=== PATIENT | male | born 1940 | race Caucasian/White ===

== ENCOUNTER 2016-04-10 10:54 | Inpatient (IN) | payer MEDICARE ==
[2016-04-10] VITALS (14 sets, daily range): BP systolic 82–105; BP diastolic 50–64
[~2016-04-10] VITALS: Ht 177.8 cm; Wt 88.2 kg
[~2016-04-10 10:54] MED LIST: ASPI81TA7 PO; ATOR40TA PO; DIGO0.25 PO; NITR0.3S4 SL; PLAV75TA38 PO
[2016-04-10] MEDS ORDERED: ERTAPENEM SODIUM 1 GM in NS MINI-BAG PLUS 50 ML IV ONE (11:15)
[2016-04-10] MEDS ORDERED: ALVIMOPAN 12 MG CAPSULE (ENTEREG) PO ONE (11:15)
[2016-04-10] MEDS ORDERED: LR 1,000 ML IV SCH ×4 (11:15→20:00)
[2016-04-10] MEDS ORDERED: ROCURONIUM BROMIDE 50 MG/5 ML VIAL As Ordered ONE ×2 (12:19→14:36)
[2016-04-10] MEDS ORDERED: LIDOCAINE 2% INJ 100 MG/5 ML SDV (FOR ANES.) As Ordered ONE (12:19)
[2016-04-10] MEDS ORDERED: PROPOFOL 200 MG/20 ML VIAL As Ordered ONE (12:19)
[2016-04-10] MEDS ORDERED: MIDAZOLAM INJ 2 MG/2 ML VIAL (J2250) As Ordered ONE (12:20)
[2016-04-10] MEDS ORDERED: fentaNYL 100 MCG/2 ML INJECTION (J3010) As Ordered ONE (12:20)
[2016-04-10] MEDS ORDERED: ASPIRIN 81 MG CHEW TABLET As Ordered ONE (12:49)
[2016-04-10] MEDS ORDERED: ASPIRIN 81 MG CHEW TABLET PO ONE (13:00)
[2016-04-10] MEDS ORDERED: BUPIVACAINE HCL 0.25% 30 ML VIAL As Ordered ONE (13:12)
[2016-04-10 13:46] LABS: MEAN CORPUSCULAR HEMOGLOBIN 31.4 pg (27.0-33.0); MEAN CORPUSCULAR HGB CONC 34.7 g/dl (32.0-36.5); MEAN CORPUSCULAR VOLUME 90.4 fl (80.0-96.0); RED CELL DISTRIBUTION WIDTH 13.1 % (11.5-14.5); WHITE BLOOD COUNT 4.9 K/mm3 (4.0-10.0)
[2016-04-10] MEDS ORDERED: HYDROmorphone HCL 2 MG/ML 1ML VIAL (J1170) As Ordered ONE (14:37)
[2016-04-10] MEDS ORDERED: NEOSTIGMINE 1MG/ML 5 ML SYRINGE (J2710) As Ordered ONE (15:42)
[2016-04-10] MEDS ORDERED: GLYCOPYRROLATE INJ 0.2 MG/ML 2 ML VIAL As Ordered ONE (15:42)
[2016-04-10] MEDS ORDERED: ONDANSETRON 4MG/2ML VIAL (J2405) As Ordered ONE (15:42)
[2016-04-10] MEDS ORDERED: BUPIVACAINE HCL 0.25% 30 ML VIAL XX ONE ×3 (15:43→15:47)
[2016-04-10] MEDS ORDERED: NORCO, ANEXSIA 5/325MG TABLET (HYDROcodone/ACETAMINOPHEN) PO PRN (17:30)
[2016-04-10] MEDS ORDERED: ACETAMINOPHEN TAB 650MG DOSE (2X325MG) PO PRN (17:30)
[2016-04-10] MEDS ORDERED: LR 500 ML IV SCH (17:30)
[2016-04-10] MEDS ORDERED: ONDANSETRON 4MG/2ML VIAL (J2405) IV PRN ×2 (17:30→18:00)
[2016-04-10] MEDS ORDERED: NITROGLYCERIN 0.4 MG SUBL TABLET SL PRN (17:30)
[2016-04-10] MEDS ORDERED: MORPHINE 2 MG/ML 1ML SYRINGE IV PRN ×2 (17:30→18:00)
[2016-04-10] MEDS ORDERED: fentaNYL 100 MCG/2 ML INJECTION (J3010) IV PRN (18:00)
[2016-04-10] MEDS ORDERED: ePHEDrine SULFATE 25 MG/5 ML(5MG/ML) SYRINGE As Ordered ONE (18:32)
[2016-04-10] MEDS ORDERED: PHENYLephrine HCL 500 MCG/5 ML (100MCG/ML) SYRINGE (J2370) As Ordered ONE (18:32)
[2016-04-10] MEDS: KETOROLAC 30 MG/ML VIAL (J1885) IV PRN (19:07)
[2016-04-10] MEDS: ALVIMOPAN 12 MG CAPSULE (ENTEREG) PO SCH (21:36)
[2016-04-10] MEDS: ATORVASTATIN 20 MG TAB PO SCH (21:36)
[2016-04-10] MEDS: LR 1,000 ML IV SCH (22:20)
[2016-04-10] MEDS: ENOXAPARIN 40 MG/0.4 ML SYRINGE (J1650) SC SCH (23:29)
[2016-04-11] VITALS (11 sets, daily range): BP systolic 90–118; BP diastolic 53–72
[2016-04-11] MEDS: KETOROLAC 30 MG/ML VIAL (J1885) IV PRN ×2 (04:04→15:17)
[2016-04-11 04:54] LABS: EOS % 0.1 % (0.0-3.0); LARGE UNSTAINED CELL # 0.1 K/mm3 (0.0-0.4); LARGE UNSTAINED CELL % 0.5 % (0.0-4.0); LYMPH # 0.6 K/mm3 (1.5-4.5); LYMPH % 4.8 % (24.0-44.0); MEAN CORPUSCULAR HEMOGLOBIN 30.8 pg (27.0-33.0); MEAN CORPUSCULAR HGB CONC 33.2 g/dl (32.0-36.5); MEAN CORPUSCULAR VOLUME 92.7 fl (80.0-96.0); MONO # 0.6 K/mm3 (0.0-0.8); MONO % 4.3 % (0.0-5.0); NEUTROPHILS # 11.9 K/mm3 (1.8-7.7); NEUTROPHILS % 90.3 % (36.0-66.0); PLATELET COUNT, AUTOMATED 186 k/mm3 (150-450); RED CELL DISTRIBUTION WIDTH 13.4 % (11.5-14.5); WHITE BLOOD COUNT 13.2 K/mm3 (4.0-10.0)
[2016-04-11 05:03] LABS: CALCIUM LEVEL 7.6 MG/DL (8.8-10.2); CREATININE FOR GFR 1.48 MG/DL (0.70-1.30); GLOMERULAR FILTRATION RATE 49.5 (>42); POTASSIUM SERUM 4.1 MEQ/L (3.5-5.1)
[2016-04-11] MEDS: LR 1,000 ML IV SCH ×3 (06:10→20:41)
[2016-04-11] MEDS: DIGOXIN 0.25 MG TAB PO SCH (08:41)
[2016-04-11] MEDS: ALVIMOPAN 12 MG CAPSULE (ENTEREG) PO SCH ×2 (08:41→20:43)
[2016-04-11] MEDS ORDERED: traMADol 50 MG TAB PO PRN (11:00)
[2016-04-11] MEDS ORDERED: IPRATROPIUM 0.5MG/ALBUTEROL 2.5MG INH SOL UD 3ML (DUONEB)(J7620) NEB PRN (11:00)
[2016-04-11] MEDS: IPRATROPIUM 0.5MG/ALBUTEROL 2.5MG INH SOL UD 3ML (DUONEB)(J7620) NEB SCH ×2 (14:00→19:58)
[2016-04-11] MEDS: ATORVASTATIN 20 MG TAB PO SCH (20:43)
[2016-04-11] MEDS: ENOXAPARIN 40 MG/0.4 ML SYRINGE (J1650) SC SCH (22:41)
[2016-04-12] VITALS (12 sets, daily range): BP systolic 110–133; BP diastolic 56–76
[2016-04-12] MEDS: IPRATROPIUM 0.5MG/ALBUTEROL 2.5MG INH SOL UD 3ML (DUONEB)(J7620) NEB SCH ×4 (02:00→20:41)
[2016-04-12] MEDS: LR 1,000 ML IV SCH (08:52)
[2016-04-12] MEDS: DIGOXIN 0.25 MG TAB PO SCH (08:59)
[2016-04-12] MEDS: ALVIMOPAN 12 MG CAPSULE (ENTEREG) PO SCH ×2 (08:59→22:00)
[2016-04-12 09:51] LABS: MEAN CORPUSCULAR HEMOGLOBIN 30.9 pg (27.0-33.0); MEAN CORPUSCULAR HGB CONC 34.2 g/dl (32.0-36.5); MEAN CORPUSCULAR VOLUME 90.3 fl (80.0-96.0); RED CELL DISTRIBUTION WIDTH 13.3 % (11.5-14.5); WHITE BLOOD COUNT 10.1 K/mm3 (4.0-10.0)
[2016-04-12 09:57] LABS: CALCIUM LEVEL 7.8 MG/DL (8.8-10.2); CREATININE FOR GFR 1.39 MG/DL (0.70-1.30); GLOMERULAR FILTRATION RATE 53.2 (>42); POTASSIUM SERUM 3.8 MEQ/L (3.5-5.1)
[2016-04-12] MEDS ORDERED: FUROSEMIDE 20 MG/2 ML VIAL (J1940) IV ONE ×2 (11:00→11:45)
--- NOTE | 2016-04-12 11:41 | CR.PDOC ---
[facility] Consultation Consultation DATE OF CONSULTATION: 04/12/16 PRIMARY CARE PHYSICIAN: Dr Doug Rojas REFERRING PROVIDER: Dr Quiles ATTENDING PHYSICIAN: Dr. Dr Quiles REASON FOR CONSULTATION/CHIEF COMPLAINT: AMS. HISTORY OF PRESENT ILLNESS: S/P right lap hemicolectomy. ALLERGIES: Please see below. HOME MEDICATIONS: Please see below. PAST MEDICAL HISTORY: 1. CAD. 2. HTN. 3. AFib. 4. Hyperlipidemia. PAST SURGICAL HISTORY: 1. 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 Denies fevers , chills, weakness. HEENT: Denies headaches, sore throat, sinus or ear pain. CARDIOVASCULAR: Denies CP, palpitations. RESPIRATORY: Denies SOB, Wheezing. GENITOURINARY: Denies dysuria. MUSCULOSKELETAL: Denies myalgias. GASTROINTESTINAL: Denies any current abd pain. Denies N/V/D. SKIN: Denies rash. NEUROLOGICAL: Some confusion. Denies Headaches, LOC, paresthesias. PSYCHIATRIC: Some confusion. ENDOCRINE: Denies hot or cold intolerance. HEMATOLOGIC/LYMPHATIC: Denies any bleeding. ALLERGIC/IMMUNOLOGIC: . PHYSICAL EXAMINATION: VITAL SIGNS: Please see below. GENERAL APPEARANCE: Sitting up in chair. Pleasant. NAD. HEENT: NC/AT. RESPIRATORY: CTAB. CARDIOVASCULAR: RRR. ABDOMEN: +BS, Soft. NT. Dressing to mid-abd. EXTREMITIES: No edema. NEUROLOGICAL: Nonfocal grossly. PSYCHIATRIC: A/O. Knows he is in [facility]. Knows his doctors' names. Knows the year. Didn't recall his recent surgery. LABORATORY DATA: Please see below. ASSESSMENT/PLAN: 1. AMS - Medicine was asked to see this pt by surgery for AMS. Pt is being followed by General Surgery, and Dr Quiles's note states that the pt may be a little better today in regards to his mental status. Pt knows he is in the hospital but couldn't recall that he recently had surgery. Possibly metabolic encephalopathic. Hgb 6.9. Will transfuse 2 units PRBCs. He is being diuresed. . 2. S/P Right colectomy - General Surgery following 3. Anemia - Hgb 6.9. Transfuse 2 units PRBCs. . 4. CAD - Asymptomatic. Follows with cardiology as outpt. 5. H/O PAF - On Dig. Follows with cardiology as outpt. 6. Hyperlipidemia - On lipitor. Attending note: I saw and evaluated the patient, and agree with the plan of care as discussed and documented above. However, AMS, likely triggered by severe postoperative anemia. Patient is improved after 2 units of PRBC. Carlos Castaneda MD Vital Signs/I&O Vital Signs Date Time Temp Pulse Resp B/P Pulse Ox O2 Delivery O2 Flow Rate FiO2 04/12/16 10:00 99.0 104 18 111/56 91 Room Air 04/11/16 05:30 3.0 I&O- Last 24 Hours up to 6 AM 04/12/16 06:00 Intake Total 2360 ml Output Total 790 ml Balance 1570 ml Laboratory Data Labs 24H Laboratory Tests 2 04/12/16 09:34: Anion Gap 7L, Blood Urea Nitrogen 30H, Creatinine 1.39H, Sodium Level 139, Potassium Level 3.8, Chloride Level 102, Carbon Dioxide Level 30, Calcium Level 7.8L, Glomerular Filtration Rate 53.2 CBC/BMP Laboratory Tests 04/12/16 09:34 Calcium Level 7.8 L, Red Blood Count 2.23 L, Mean Corpuscular Volume 90.3, Mean Corpuscular Hemoglobin 30.9, Mean Corpuscular Hemoglobin Concent 34.2, Red Cell Distribution Width 13.3 Microbiology Microbiology 04/10/16 MRSA Screen - Final, Complete Allergies Coded Allergies: Penicillins (Verified Allergy, Unknown, 07/11/12) Penicillins Cross Reactors (Verified Allergy, Unknown, 07/11/12) Home Medications Scheduled Aspirin (Aspirin) 81 Mg Tab 81 MG PO DAILY (Reported) Atorvastatin Calcium (Atorvastatin Calcium) 40 Mg Tab 40 MG PO QHS (Reported) Digoxin (Digoxin) 0.25 Mg Tab 0.25 MG PO DAILY (Reported) Scheduled PRN Nitroglycerin (Nitroglycerin) 0.3 Mg Sub 0.3 MG SL Q5MP PRN PRN ANGINA (Reported ) Rosalino Pichardo Apr 12, 2016 11:41 CARLOS CASTANEDA MD Apr 28, 2016 13:29 Rosalino Pichardo Apr 12, 2016 11:41
[2016-04-12] MEDS ORDERED: POTASSIUM CHLORIDE 10 MEQ SR TABLET PO ONE (12:00)
[2016-04-12 18:19] LABS: MEAN CORPUSCULAR HEMOGLOBIN 30.5 pg (27.0-33.0); MEAN CORPUSCULAR HGB CONC 34.4 g/dl (32.0-36.5); MEAN CORPUSCULAR VOLUME 88.7 fl (80.0-96.0); RED CELL DISTRIBUTION WIDTH 14.3 % (11.5-14.5); WHITE BLOOD COUNT 9.9 K/mm3 (4.0-10.0)
[2016-04-12] MEDS: ATORVASTATIN 20 MG TAB PO SCH (22:00)
[2016-04-12] MEDS: KETOROLAC 30 MG/ML VIAL (J1885) IV PRN (22:00)
[2016-04-12] MEDS: ENOXAPARIN 40 MG/0.4 ML SYRINGE (J1650) SC SCH (22:01)
[2016-04-13] MEDS ORDERED: LORazepam 2 MG/ML VIAL (J2060) IV PRN (01:00)
[2016-04-13] MEDS: IPRATROPIUM 0.5MG/ALBUTEROL 2.5MG INH SOL UD 3ML (DUONEB)(J7620) NEB SCH (01:41)
[2016-04-13 02:00] VITALS: BP 144/74
[2016-04-13] MEDS ORDERED: OLANZapine 5 MG TAB PO ONE (04:00)
[2016-04-13 06:00] VITALS: BP 143/84
[2016-04-13] MEDS ORDERED: LORazepam 2 MG/ML VIAL (J2060) IV STA (07:09)
[2016-04-13] MEDS ORDERED: PHENYLephrine HCL 500 MCG/5 ML (100MCG/ML) SYRINGE (J2370) ONE (07:28)
[2016-04-13] MEDS ORDERED: PHENYLEPHRINE INJ 10MG/ML VIAL (J2370) ONE (07:28)
--- NOTE | 2016-04-13 07:54 | RO ---
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 PROCEDURE PERFORMED: Laparoscopic right hemicolectomy with ileocolic anastomosis. SURGEON: Kenny Anderson MD SOIL CONSERVATION TECHNICIAN: Kp Johnson MD ANESTHESIA: General. INDICATIONS FOR THE PROCEDURE: Patient is a 75-year-old man who was found on recent colonoscopy to have a large villous lesion involving the entire ileocecal valve region and some of the surrounding cecal wall. Biopsy confirmed villous adenoma and he is now for a right hemicolectomy. OPERATIVE PROCEDURE: The patient was placed under general endotracheal anesthesia. A Mary catheter was inserted. Thromboembolism deterrents (TEDs) and sequentials were applied. He was placed supine on the operating table. The abdomen was prepped and draped in a sterile fashion. 0.25% Marcaine was infiltrated at each of the trocar sites prior to insertion. A short infraumbilical midline incision was made and deepened into the peritoneum. A Marissa cannula was placed and the abdomen was inflated. The ascending colon appeared to be moderately dilated with air as did the transverse colon. The cecum and ascending colon appeared to be displaced up into the right upper quadrant. The liver appeared normal. There were some adhesions of fatty tissue to the gallbladder. A 5 mm trocar was placed low in the midline. A second 5 mm trocar was placed in the left lower quadrant slightly below the level of the umbilicus. A third 5 mm trocar was placed in the left upper quadrant. The cecum was grasped and pulled inferiorly. The terminal ileum appeared to be fairly immobile with significant lateral attachments. I began by dividing some of the lateral attachments of the terminal ileum. Dissection then carried up along the lateral aspect of the cecum and the proximal ascending to free this portion of the colon. Then, with the colon elevated, the peritoneum was opened medial to the cecum and the ileocolic vessel was divided using the Harmonic scalpel. Much of the dissection took place using the Harmonic scalpel and the medial aspect of the mesentery of the ascending colon was divided moving cephalad. The adhesions of the omentum to the gallbladder were divided with the Harmonic scalpel. Then, attachments of the hepatic flexure in the right upper quadrant were divided. Dissection proceeded freeing the proximal transverse colon moving from right to left. The dissection was completed freeing the lateral aspect of the ascending colon and the division of the right colon mesentery was then carried across the transverse colon mesentery sparing the middle colic vessels. The mesentery was then opened at a point selected for the colonic transection and a Emporium stapler was placed across the proximal transverse colon and fired. A second load was needed to complete the division. Some final dissection of the terminal ileum was required to allow this to be mobilized adequately to bring this to the midline for an anastomosis. Once everything appeared to be well freed, the area was inspected for hemostasis , which appeared excellent. The two ends of the colon were both grasped with clamps. The abdomen was then deflated. The infraumbilical incision was extended to approximately 5 cm. A small wound protector was placed. The proximal end of the transverse colon was delivered through the wound and this allowed delivery of the right hemicolectomy specimen, which was still attached to the terminal ileum. The terminal ileum was divided with the Emporium stapler. The distal portion of the transverse colon was then also delivered into the wound. Both ends of the bowel appeared to be well vascularized. The bowel was tacked together with two simple sutures of #3-0 Vicryl and a stapled anastomosis was then performed with two firings of the Emporium 60 mm stapler. The anastomosis was inspected for hemostasis and several small bleeding points along one of the staple lines were controlled with the cautery. Final inspection revealed an excellent healthy appearing anastomosis. This was gently irrigated and then reduced into the abdomen. The wound protector was removed. The surgical team then changed gown and gloves. The closing tray was brought to the field. The abdominal wall was cleaned with saline soaked pad and some additional towels were placed to drape the area. The midline incision was closed with interrupted simple sutures of #1 Vicryl. The abdomen was then reinflated through the remaining three trocars. A 5 mm scope was placed. The area of the anastomosis was identified. This appeared intact. A small amount of bloody fluid in the area of the operation was suctioned and there did not appear to be any ongoing bleeding. The patient was returned to a flat position. The abdomen was deflated and the trocars were all removed. The skin incisions were then all closed with buried #5-0 Vicryl and Steri-Strips. Light dressings were applied. The patient tolerated the procedure well without apparent complication. He was awakened in the operating room, extubated and moved to the recovery room in stable condition. The specimen was opened off the field and inspection revealed an approximately 5 cm area of a villous lesion involving the area of the ileocecal valve. There were no hard areas to suggest definite cancer. The specimen was sent for permanent pathology. VANESSA
[2016-04-13] MEDS ORDERED: NORCO, ANEXSIA 5/325MG TABLET (HYDROcodone/ACETAMINOPHEN) PO PRN (08:00)
--- NOTE | 2016-04-13 08:58 | IPNPDOC ---
Assessment/Plan Date Seen The patient was seen on 04/13/16. Family Medicine Attending note: patient seen and examined; I d/w MALLY Salinas and I agree with her note below. Patient is currently sleeping and is difficult to arouse, likely due to medication. Overnight, patient was agitated and repeatedly attempted to get out of bed. Therefore, we are currently unable to assess his mental status. He received 2U PRBCs yesterday. Will monitor mental status. (KES). Problems Problems: (1) S/P right hemicolectomy Status: Acute Response to Treatment: Stable Discussed With: Order Editor Problem Specific Plan: Monitor Clinically Problem Text: Dr Anderson following (2) Altered mental status Status: Acute Response to Treatment: Uncontrolled Discussed With: Nurse, Order Editor Problem Specific Plan: Monitor Clinically, Repeat Labs Problem Text: Pt now asleep after receiving second dose of Ativan 0.5 mg IV 6 hours after the first. He also received a dose of Zyprexa at 4 AM. a sitter has been ordered. Mtp potential causes including significant anemia (now corrected, Hgb 8.7, was 6.9), surgery, post anesthesia, environment. Monitor closely (3) Acute blood loss anemia Status: Acute Response to Treatment: Stable Problem Specific Plan: Monitor Clinically, Repeat Labs Problem Text: Received 2 u pRBCs yesterday as ordered by medical team after consult from . Could have triggered AMS. Monitor levels. (4) CAD (coronary artery disease) Status: Chronic Response to Treatment: Stable Problem Specific Plan: Monitor Clinically (5) Paroxysmal atrial fibrillation Status: Chronic Response to Treatment: Stable Problem Text: Cont with HD dig. (6) Villous adenoma of right colon Status: Acute Response to Treatment: Controlled Problem Specific Plan: Monitor Clinically Problem Text: resulted in R hemicolectomy, mgmt per . Plan / VTE VTE Prophylaxis Ordered?: Yes Plan / Urinary Catheter Reason for insertion/continuin: Perioperative Subjective Review of Systems CC/HPI Received call from nursing this morning about 705 reporting pt to be combative, restless, had been on the floor, writhing, unable to keep in bed, unable to keep in chair or wheelchair. Pt confused. Pt had been given Ativan 0.5 mg at 1 am, Zyprexa 5 mg at 4 AM, both with little improvement in his behavior General: Reports: ROS Unobtainable (pt sleeping soundly this morning) Constitutional: Reports: Chills Objective Physical Examination General Exam: Positive: Alert, No Acute Distress ENT Exam: Positive: Mucous membr. moist/pink Chest Exam: Positive: Clear to auscultation, Normal air movement Heart Exam: Positive: Normal S1, Normal S2, Rate Normal Abdomen Exam: Positive: BS Hypoactive, Soft Extremity Exam: Negative: Edema Vital Signs/I&O Vital Signs Date Time Temp Pulse Resp B/P Pulse Ox O2 Delivery O2 Flow Rate FiO2 04/13/16 06:00 97.5 96 17 143/84 94 Room Air 04/11/16 05:30 3.0 I&O- Last 24 Hours up to 6 AM 04/13/16 06:00 Intake Total 1884 ml Output Total 5000 ml Balance -3116 ml Laboratory Data Labs 24H Laboratory Tests 2 04/12/16 09:34: Anion Gap 7L, Blood Urea Nitrogen 30H, Creatinine 1.39H, Sodium Level 139, Potassium Level 3.8, Chloride Level 102, Carbon Dioxide Level 30, Calcium Level 7.8L, Glomerular Filtration Rate 53.2 CBC/BMP Laboratory Tests 04/12/16 09:34 Calcium Level 7.8 L, Red Blood Count 2.23 L, Mean Corpuscular Volume 90.3, Mean Corpuscular Hemoglobin 30.9, Mean Corpuscular Hemoglobin Concent 34.2, Red Cell Distribution Width 13.3 04/12/16 17:59 Red Blood Count 2.84 L, Mean Corpuscular Volume 88.7, Mean Corpuscular Hemoglobin 30.5, Mean Corpuscular Hemoglobin Concent 34.4, Red Cell Distribution Width 14.3 Microbiology Microbiology 04/10/16 MRSA Screen - Final, Complete GRETTA EDMONDSON PA-C Apr 13, 2016 08:58 BARBARA WONG MD Apr 13, 2016 09:38
[2016-04-13 11:14] VITALS: BP 138/64
[2016-04-13] MEDS: ALVIMOPAN 12 MG CAPSULE (ENTEREG) PO SCH (11:27)
[2016-04-13] MEDS: DIGOXIN 0.25 MG TAB PO SCH (11:28)
[2016-04-13 11:48] LABS: BASO % 0.2 % (0.0-1.0); EOS # 0.1 K/mm3 (0.0-0.50); EOS % 1.3 % (0.0-3.0); LARGE UNSTAINED CELL # 0.1 K/mm3 (0.0-0.4); LARGE UNSTAINED CELL % 1.6 % (0.0-4.0); LYMPH % 16.5 % (24.0-44.0); MEAN CORPUSCULAR HEMOGLOBIN 30.8 pg (27.0-33.0); MEAN CORPUSCULAR HGB CONC 34.2 g/dl (32.0-36.5); MEAN CORPUSCULAR VOLUME 90.1 fl (80.0-96.0); MONO # 0.5 K/mm3 (0.0-0.8); MONO % 8.2 % (0.0-5.0); NEUTROPHILS # 4.2 K/mm3 (1.8-7.7); NEUTROPHILS % 72.2 % (36.0-66.0); PLATELET COUNT, AUTOMATED 129 k/mm3 (150-450); RED CELL DISTRIBUTION WIDTH 14.3 % (11.5-14.5); WHITE BLOOD COUNT 5.8 K/mm3 (4.0-10.0)
[2016-04-13 12:48] LABS: ALBUMIN 3.2 GM/DL (3.2-5.2); ALBUMIN/GLOBULIN RATIO 1.45 (1.00-1.93); ALKALINE PHOSPHATASE 63 U/L (45-117); ALT/SGPT 19 U/L (12-78); ANION GAP 8 MEQ/L (8-16); AST/SGOT 36 U/L (15-37); BILIRUBIN,TOTAL 1.7 MG/DL (0.2-1.0); BLOOD UREA NITROGEN 18 MG/DL (7-18); CARBON DIOXIDE LEVEL 32 MEQ/L (21-32); CHLORIDE LEVEL 105 MEQ/L (98-107); GLOMERULAR FILTRATION RATE > 60.0 (>42); GLUCOSE, FASTING 91 MG/DL (83-110); POTASSIUM SERUM 3.7 MEQ/L (3.5-5.1); SODIUM LEVEL 145 MEQ/L (136-145); TOTAL PROTEIN 5.4 GM/DL (6.4-8.2)
[2016-04-13 14:00] VITALS: BP 148/77
--- NOTE | 2016-04-13 15:29 | IPNPDOC ---
Text Note Date of Service The patient was seen on 04/13/16 at 14:25. NOTE Patient seen and examined again this afternoon - he was awake, alert, and sitting calmly in a chair at bedside. He had no complaints and denies any chest pain or abdominal pain. He is oriented to year, month, name, birthday. He is somewhat oriented to situation - he is able to state that he had surgery on his stomach on 04/10/[address] Anderson but is unable to state current location. He admits to feeling confused and states he thinks he was confused and "upset" overnight. Hgb increased appropriately yesterday after he received 2 U pRBCs but is back to <8 today. It is unclear what is causing this drop - he had a normal BM yesterday without blood, and he ate 75% of his lunch today without difficulty. He denies nausea. I think that his confusion is likely related to his dementia with recent hospitalizations and surgery causing increased confusion from baseline. He is likely owning at night. I d/w family today the importance of redirecting him and allowing time for him to recover. Urine culture is pending. Will give an additional 1 U pRBCs and recheck CBC in the morning. (KES) VS,Tami, I+O VS, [place], I+O Laboratory Tests 04/12/16 17:59 Red Blood Count 2.84 L, Mean Corpuscular Volume 88.7, Mean Corpuscular Hemoglobin 30.5, Mean Corpuscular Hemoglobin Concent 34.4, Red Cell Distribution Width 14.3 04/13/16 11:38 Red Blood Count 2.53 L, Mean Corpuscular Volume 90.1, Mean Corpuscular Hemoglobin 30.8, Mean Corpuscular Hemoglobin Concent 34.2, Red Cell Distribution Width 14.3, Calcium Level 8.0 L, Aspartate Amino Transf (AST/SGOT) 36, Alanine Aminotransferase (ALT/SGPT) 19, Alkaline Phosphatase 63, Total Bilirubin 1.7 H, Total Protein 5.4 L, Albumin 3.2, Neutrophils (%) (Auto) 72.2 H , Lymphocytes (%) (Auto) 16.5 L, Monocytes (%) (Auto) 8.2 H, Eosinophils (%) ( Auto) 1.3, Basophils (%) (Auto) 0.2, Neutrophils # (Auto) 4.2, Lymphocytes # ( Auto) 1.0 L, Monocytes # (Auto) 0.5, Eosinophils # (Auto) 0.1, Basophils # (Auto ) 0.0 Vital Signs Date Time Temp Pulse Resp B/P Pulse Ox O2 Delivery O2 Flow Rate FiO2 04/13/16 14:00 97.3 82 18 148/77 98 Room Air 04/11/16 05:30 3.0 I&O- Last 24 Hours up to 6 AM 04/13/16 06:00 Intake Total 1884 ml Output Total 5000 ml Balance -3116 ml BARBARA WONG MD Apr 13, 2016 15:29
[2016-04-13 18:00] VITALS: BP 121/65
[2016-04-13] MEDS: ATORVASTATIN 20 MG TAB PO SCH (19:48)
[2016-04-13 22:00] VITALS: BP 170/82
[2016-04-14] MEDS ORDERED: LORazepam 0.5 MG TAB PO PRN (00:15)
[2016-04-14 02:00] VITALS: BP 105/58
[2016-04-14 06:00] VITALS: BP 150/88
[2016-04-14 07:12] LABS: BASO % 0.2 % (0.0-1.0); EOS # 0.2 K/mm3 (0.0-0.50); EOS % 2.8 % (0.0-3.0); LARGE UNSTAINED CELL # 0.1 K/mm3 (0.0-0.4); LARGE UNSTAINED CELL % 2.1 % (0.0-4.0); LYMPH # 0.9 K/mm3 (1.5-4.5); LYMPH % 14.2 % (24.0-44.0); MEAN CORPUSCULAR HEMOGLOBIN 30.8 pg (27.0-33.0); MEAN CORPUSCULAR HGB CONC 33.7 g/dl (32.0-36.5); MEAN CORPUSCULAR VOLUME 91.4 fl (80.0-96.0); MONO # 0.5 K/mm3 (0.0-0.8); MONO % 7.3 % (0.0-5.0); NEUTROPHILS # 4.8 K/mm3 (1.8-7.7); NEUTROPHILS % 73.3 % (36.0-66.0); PLATELET COUNT, AUTOMATED 158 k/mm3 (150-450); RED CELL DISTRIBUTION WIDTH 14.1 % (11.5-14.5); WHITE BLOOD COUNT 6.6 K/mm3 (4.0-10.0)
[2016-04-14 07:38] LABS: ALBUMIN 3.4 GM/DL (3.2-5.2); ALBUMIN/GLOBULIN RATIO 1.26 (1.00-1.93); ALKALINE PHOSPHATASE 69 U/L (45-117); ALT/SGPT 25 U/L (12-78); ANION GAP 5 MEQ/L (8-16); AST/SGOT 51 U/L (15-37); BILIRUBIN,TOTAL 2.3 MG/DL (0.2-1.0); BLOOD UREA NITROGEN 21 MG/DL (7-18); CALCIUM LEVEL 8.4 MG/DL (8.8-10.2); CARBON DIOXIDE LEVEL 32 MEQ/L (21-32); CHLORIDE LEVEL 107 MEQ/L (98-107); CREATININE FOR GFR 0.96 MG/DL (0.70-1.30); GLOMERULAR FILTRATION RATE > 60.0 (>42); GLUCOSE, FASTING 93 MG/DL (83-110); POTASSIUM SERUM 3.8 MEQ/L (3.5-5.1); SODIUM LEVEL 144 MEQ/L (136-145); TOTAL PROTEIN 6.1 GM/DL (6.4-8.2)
[2016-04-14] MEDS: DIGOXIN 0.25 MG TAB PO SCH (08:44)
[2016-04-14 10:00] VITALS: BP 144/82
[2016-04-14 14:00] VITALS: BP 142/81
[2016-04-14] MEDS: ATORVASTATIN 20 MG TAB PO SCH (20:48)
[2016-04-14 22:00] VITALS: BP 138/81
[2016-04-15 02:00] VITALS: BP 158/83
[2016-04-15 06:00] VITALS: BP 143/89
[2016-04-15] MEDS: DIGOXIN 0.25 MG TAB PO SCH (07:54)
[2016-04-15 10:00] VITALS: BP 140/80
[2016-04-15 14:00] VITALS: BP 137/73
[2016-04-15 18:00] VITALS: BP 118/65
[2016-04-15] MEDS: ATORVASTATIN 20 MG TAB PO SCH (21:04)
[2016-04-15 22:00] VITALS: BP 146/86
[2016-04-16 02:00] VITALS: BP 131/78
[2016-04-16 06:00] VITALS: BP 135/74
[2016-04-16 06:36] LABS: MEAN CORPUSCULAR HEMOGLOBIN 31.2 pg (27.0-33.0); MEAN CORPUSCULAR HGB CONC 33.9 g/dl (32.0-36.5); MEAN CORPUSCULAR VOLUME 92.1 fl (80.0-96.0); RED CELL DISTRIBUTION WIDTH 14.4 % (11.5-14.5); WHITE BLOOD COUNT 6.6 K/mm3 (4.0-10.0)
[2016-04-16 06:56] LABS: ALBUMIN 3.5 GM/DL (3.2-5.2); ALBUMIN/GLOBULIN RATIO 1.21 (1.00-1.93); ALKALINE PHOSPHATASE 77 U/L (45-117); ALT/SGPT 25 U/L (12-78); ANION GAP 7 MEQ/L (8-16); AST/SGOT 70 U/L (15-37); BILIRUBIN,TOTAL 3.6 MG/DL (0.2-1.0); BLOOD UREA NITROGEN 23 MG/DL (7-18); CALCIUM LEVEL 8.6 MG/DL (8.8-10.2); CARBON DIOXIDE LEVEL 30 MEQ/L (21-32); CHLORIDE LEVEL 104 MEQ/L (98-107); CREATININE FOR GFR 0.89 MG/DL (0.70-1.30); GLOMERULAR FILTRATION RATE > 60.0 (>42); GLUCOSE, FASTING 91 MG/DL (83-110); POTASSIUM SERUM 3.5 MEQ/L (3.5-5.1); SODIUM LEVEL 141 MEQ/L (136-145); TOTAL PROTEIN 6.4 GM/DL (6.4-8.2)
[2016-04-16] MEDS: DIGOXIN 0.25 MG TAB PO SCH (08:41)
[2016-04-16 18:00] VITALS: BP 123/75
[2016-04-16] MEDS: ATORVASTATIN 20 MG TAB PO SCH (21:36)
[2016-04-16 22:00] VITALS: BP 120/66
[2016-04-17 02:00] VITALS: BP 137/79
[2016-04-17 06:00] VITALS: BP 113/68
[2016-04-17] MEDS: DIGOXIN 0.25 MG TAB PO SCH (08:19)
[2016-04-17 10:00] VITALS: BP 115/64
== END 2016-04-17 12:35 | disposition home or self-care (01) | DRG 329 ==
LOC: M OR 10:54 → M ICU 19:45 → M MSPAV 04-11 13:12
PROVIDERS: ADMIT Surgery; ATTEND Surgery
PROC: 0DBB4ZZ Excision of Ileum, Percutaneous Endoscopic Approach (ICD-10-PCS; 2016-04-10)
PROC: 0D1 Gastrointestinal System, Bypass (ICD-10-PCS; 2016-04-10)
PROC: 0DBL4ZZ Excision of Transverse Colon, Percutaneous Endoscopic Approach (ICD-10-PCS; principal; 2016-04-10 12:00)
DX: D12.0 Benign neoplasm of cecum (principal); G93.41 Metabolic encephalopathy; D62 Acute posthemorrhagic anemia; I25.10 Atherosclerotic heart disease of native coronary artery without angina pectoris; I10 Essential (primary) hypertension; I48.0 Paroxysmal atrial fibrillation; E78.5 Hyperlipidemia, unspecified; F03.90 Unspecified dementia, unspecified severity, without behavioral disturbance, psychotic disturbance, mood disturbance, and anxiety

== ENCOUNTER → 2016-11-20 | Outpatient (REF) | payer MEDICARE ==
[~2016-11-20] MED LIST changes: +ASPI1TAB15 PO; -ASPI81TA7 PO; -ATOR40TA PO; +ATOR40TA75 PO; +PLAV1TAB2 PO; -PLAV75TA38 PO
[2016-11-20 12:44] LABS: MEAN CORPUSCULAR HEMOGLOBIN 31.9 pg (27.0-33.0); MEAN CORPUSCULAR HGB CONC 34.1 g/dl (32.0-36.5); MEAN CORPUSCULAR VOLUME 93.6 fl (80.0-96.0); RED CELL DISTRIBUTION WIDTH 13.3 % (11.5-14.5); WHITE BLOOD COUNT 6.8 K/mm3 (4.0-10.0)
[2016-11-20 12:59] LABS: CORTISOL AM 20.3 UG/DL (4.3-22.4)
[2016-11-20 13:04] LABS: ALBUMIN 3.8 GM/DL (3.2-5.2); ANION GAP 7 MEQ/L (8-16); BLOOD UREA NITROGEN 20 MG/DL (7-18); CALCIUM LEVEL 8.3 MG/DL (8.8-10.2); CARBON DIOXIDE LEVEL 29 MEQ/L (21-32); CHLORIDE LEVEL 109 MEQ/L (98-107); CREATININE FOR GFR 1.01 MG/DL (0.70-1.30); GLOMERULAR FILTRATION RATE > 60.0 (>42); GLUCOSE, FASTING 92 MG/DL (83-110); PHOSPHORUS LEVEL 3.2 MG/DL (2.5-4.9); POTASSIUM SERUM 4.4 MEQ/L (3.5-5.1); SODIUM LEVEL 145 MEQ/L (136-145)
== END ==
LOC: M LAB REF 11:40
PROVIDERS: ATTEND Internal Medicine Cardiovascular Disease
DX: R53.82 Chronic fatigue, unspecified (principal); I48.0 Paroxysmal atrial fibrillation

== ENCOUNTER → 2017-02-18 | Outpatient (REF) | payer MEDICARE | LOC: M LABDRAWC 11:28 | PROVIDERS: ATTEND Internal Medicine Cardiovascular Disease | DX: I48.0 Paroxysmal atrial fibrillation (principal) ==

== ENCOUNTER 2018-07-22 12:34 | Outpatient (RCR) | payer MEDICARE ==
--- NOTE | 2018-07-22 14:26 | NUR ---
Pt referred for clinical swallow evaluation d/t diagnosis of Parkinson's Disease and family reports of recent difficulty swallowing. Per , pt has required multiple swallows per bolus. She denies symptoms of aspiration at mealtime including cough, throat clear, and watery eyes, and states that pt consumes a regular diet w/ foods cut small for him. Evaluation completed this date with the following consistencies: honey thick liquids, nectar thick liquids, thin liquids via cup and straw, mechanical soft solids (canned fruit) and regular solids (hard cookie). Pt demonstrated adequate laryngeal elevation, baseline vocal quality, and adequate mastication. Pt demonstrated delayed anterior-posterior transfer of bolus and delayed swallow. Pt consumed liquids at an increased pace, requiring multiple swallows to clear oral cavity. However, all consistencies were tolerated without signs of aspiration or penetration. Recommend continue regular diet and thin liquids with the following compensatory strategies: sit upright during meals, take small bites/sips, take multiple swallows per bolus, and slow meal pace. Pt and were educated on nature of Parkinson's disease and benefits of dysphagia therapy to maintain laryngeal musculature. At this time, dysphagia tx is not desired. Pt and were provided with a home exercise program, and were encouraged to return to a speech-language pathologist with any questions or further concerns. Thank you for this referral. Please contact [facility] w/ any further questions regarding this patient. Addendum: 07/22/[address] [facility] Amended: Links added.
== END 2018-08-02 ==
LOC: M ST 12:34
PROVIDERS: ATTEND Psychiatry & Neurology Neurology
DX: G35 Multiple sclerosis (principal)

== ENCOUNTER → 2018-09-20 | Outpatient (REF) | payer MEDICARE ==
[2018-09-21 12:08] LABS: APPEARANCE, URINE TURBID (CLEAR); BACTERIA, URINE AUTO NEGATIVE (NEGATIVE); BILIRUBIN, URINE AUTO NEGATIVE (NEGATIVE); BLOOD, URINE BLOOD 2+ (NEGATIVE); CALCIUM OXALATE CRYSTALS MODERATE; COLOR, URINE AMBER (YELLOW); GLUCOSE, URINE (UA) AUTO NEGATIVE (NEGATIVE); KETONE, URINE AUTO NEGATIVE (NEGATIVE); LEUKOCYTE ESTERASE, URINE AUTO NEGATIVE (NEGATIVE); MUCUS, URINE LARGE (NEGATIVE); NITRITE, URINE AUTO NEGATIVE (NEGATIVE); PROTEIN, URINE AUTO NEGATIVE (NEGATIVE); RBC, URINE AUTO 22 /HPF (0-3); SPECIFIC GRAVITY URINE AUTO 1.021 (1.002-1.035); SQUAMOUS EPITHELIAL CELL UR AU 0 /HPF (0-6); UROBILINOGEN, URINE AUTO 0.2 mg/dL (0.0-2.0); WBC, URINE AUTO 4 /HPF (0-3)
[2018-09-21 12:23] LABS: BLOOD UREA NITROGEN 31 MG/DL (7-18); CALCIUM LEVEL 9.1 MG/DL (8.8-10.2); CARBON DIOXIDE LEVEL 28 MEQ/L (21-32); CHLORIDE LEVEL 108 MEQ/L (98-107); CREATININE FOR GFR 1.04 MG/DL (0.70-1.30); GLOMERULAR FILTRATION RATE > 60.0 (>42); GLUCOSE, FASTING 85 MG/DL (70-100); POTASSIUM SERUM 4.6 MEQ/L (3.5-5.1); SODIUM LEVEL 143 MEQ/L (136-145)
== END ==
LOC: M SFHCCLAY 14:13
PROVIDERS: ATTEND Family Medicine
DX: R39.11 Hesitancy of micturition (principal)
CPT/HCPCS: 80048; 81001; G0103

== ENCOUNTER 2018-10-19 18:11 | Inpatient (IN) | payer MEDICARE ==
[~2018-10-19] VITALS: Ht 177.8 cm; Wt 75.9 kg
[2018-10-19 18:51] LABS: BASO % 0.6 % (0.0-1.0); EOS # 0.1 10^3/uL (0.0-0.50); EOS % 2.2 % (0.0-3.0); HEMATOCRIT 37.6 % (42.0-52.0); HEMOGLOBIN 12.3 g/dl (13.5-17.5); LYMPH # 1.1 10^3/uL (1.5-4.5); MEAN CORPUSCULAR HEMOGLOBIN 31.9 pg (27.0-33.0); MEAN CORPUSCULAR HGB CONC 32.7 g/dl (32.0-36.5); MEAN CORPUSCULAR VOLUME 97.7 fl (80.0-96.0); MONO # 0.6 10^3/uL (0.0-0.8); NEUTROPHILS # 4.5 10^3/uL (1.8-7.7); NEUTROPHILS % 70.9 % (36.0-66.0); PLATELET COUNT, AUTOMATED 167 10^3/uL (150-450); RED BLOOD COUNT 3.85 10^6/uL (4.30-6.10); WHITE BLOOD COUNT 6.3 10^3/uL (4.0-10.0)
[2018-10-19 19:10] LABS: OSMOLALITY SERUM 292 MOSM/KG (280-301)
--- NOTE | 2018-10-19 19:24 | ECGEPIP ---
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
[2018-10-19 19:58] LABS: ALBUMIN 3.7 GM/DL (3.2-5.2); ALT/SGPT 21 U/L (12-78); BILIRUBIN,DIRECT 0.2 MG/DL (0.0-0.2); BILIRUBIN,TOTAL 0.9 MG/DL (0.2-1.0); BLOOD UREA NITROGEN 21 MG/DL (7-18); CALCIUM LEVEL 8.7 MG/DL (8.8-10.2); CARBON DIOXIDE LEVEL 24 MEQ/L (21-32); CHLORIDE LEVEL 110 MEQ/L (98-107); CK-MB VALUE MASS 4.9 NG/ML (<3.6); CPK CREATINE PHOSPHOKINASE 125 U/L (39-308); CREATININE FOR GFR 1.12 MG/DL (0.70-1.30); GLOMERULAR FILTRATION RATE > 60.0 (>42); GLUCOSE, FASTING 121 MG/DL (70-100); MB/CK RELATIVE INDEX 3.92 (< OR =4); POTASSIUM SERUM 3.9 MEQ/L (3.5-5.1); SODIUM LEVEL 142 MEQ/L (136-145); TOTAL PROTEIN 6.3 GM/DL (6.4-8.2); TROPONIN I 0.02 NG/ML (< 0.10)
--- NOTE | 2018-10-19 20:26 | REPVR ---
EXAM: CT Head Without Contrast EXAM DATE/TIME: 10/19/2018 7:35 PM CLINICAL HISTORY: 78 years old, male; Weakness, extremity; Bilateral TECHNIQUE: Imaging protocol: Axial computed tomography images of the head without contrast. Radiation optimization: All CT scans at this facility use at least one of these dose optimization techniques: automated exposure control; mA and/or kV adjustment per patient size (includes targeted exams where dose is matched to clinical indication); or iterative reconstruction. COMPARISON: No relevant prior studies available. FINDINGS: Brain: Normal. No hemorrhage. Unremarkable white matter. No mass effect. Ventricles: Normal. No ventriculomegaly. Bones/joints: Unremarkable. No acute fracture. Sinuses: Bilateral ethmoid sinusitis. Mastoid air cells: Visualized mastoid air cells are well aerated. No mastoid effusion. Soft tissues: Unremarkable. IMPRESSION: No acute intracranial findings. Electronically signed by: Simon Boo On 10/19/2018 20:25:24 PM
[2018-10-19] MEDS ORDERED: NS 500 ML IV ONE (20:45)
[2018-10-19] MEDS: DOCUSATE SODIUM 100 MG CAP PO SCH (21:00)
[2018-10-19] MEDS: ATORVASTATIN 20 MG TAB PO SCH (21:00)
[2018-10-19] MEDS ORDERED: ATORVASTATIN 20 MG TAB PO ONE (21:30)
[2018-10-19] MEDS ORDERED: QUET1TAB7 PO (22:25)
[2018-10-19] MEDS ORDERED: ASPI-161 PO (22:25)
[2018-10-19] MEDS ORDERED: NITR0.4S14 SL (22:25)
[2018-10-19] MEDS ORDERED: CLOP75TA2 PO (22:25)
[2018-10-19] MEDS ORDERED: MOM 30ML SUSPENSION UDC PO PRN (22:45)
[2018-10-19] MEDS ORDERED: MAALOX 30 ML SUSP *UDC PO PRN (22:45)
[2018-10-19] MEDS ORDERED: LORazepam 2 MG/ML VIAL (J2060) IV PRN (22:45)
--- NOTE | 2018-10-19 22:59 | HPEPDOC ---
General Date of Admission 10/19/18 Date of Service: Oct 19, 2018 Primary Care Physician: Doug Rojas M.D. Attending Physician: CELIO TRUJILLO MD Chief Complaint The patient is a 78-year-old male admitted with a reason for visit of Weakness. Source: Family Exam Limitations: Dementia Timing/Duration: 24 hours Severity: Mild Associated Symptoms: Unobtainable History of Present Illness 78 years old white male with past medical history of Parkinson's disease and advanced dementia, was recently seen by his neurologist, and is started on S eroquel for hallucinations. As per patient, his , his dose was slowly increased, but he is been becoming more lethargic and he slept more than 24 hours before presentation to ED. Patient has advanced dementia, could not get review of systems are history from him. The present time. History was obtained from his at the bedside. We will call in to admit patient as patient has a QTC more than 450 and was found to have 1 episode of orthostatic changes during his stay in the ED, otherwise patient is clinically stable but requires a one-to-one watch secondary to advanced dementia Home Medications Scheduled Aspirin (Aspirin EC) 81 Mg Tablet.dr, 81 MG PO DAILY, (Reported) Atorvastatin Calcium (Atorvastatin Calcium) 40 Mg Tab, 40 MG PO QHS, (Reported) Clopidogrel Bisulfate (Clopidogrel) 75 Mg Tablet, 75 MG PO DAILY, (Reported) Quetiapine Fumarate (Quetiapine Fumarate) 25 Mg Tablet, 25 MG PO BID, (Reported) Scheduled PRN Nitroglycerin (Nitroglycerin) 0.4 Mg Tab.subl, 0.4 MG SL NITRO PRN for CHEST PAIN, (Reported) Allergies Coded Allergies: Penicillins (Verified Allergy, Intermediate, 10/19/18) Past Medical History Medical History Parkinson's disease, advanced dementia, hyperlipidemia Surgical History Not available Family History Significant Family History: Unable to assess Social History * Smoker: other (none, as per family) A-FIB/CHADSVASC A-FIB History Current/History of A-Fib/PAF?: No Review of Systems Constitutional: Reports: Other (, unable to obtained review of systems secondary to advanced dementia) Physical Examination General Exam: Positive: Alert, Cooperative, No Acute Distress Eye Exam: Positive: PERRLA, Conjunctiva & lids normal ENT Exam: Positive: Atraumatic, Mucous membr. moist/pink Neck Exam: Positive: Supple Chest Exam: Positive: Clear to auscultation, Normal air movement Heart Exam: Positive: Rate Normal, Normal S1, Normal S2 Abdomen Exam: Positive: Normal bowel sounds Skin Exam: Positive: Nl turgor and temperature Neuro Exam: Positive: Other (. Moves all extremities. No focal motor or sensory deficit) Psych Exam: Positive: Other (. Advanced dementia) Vital Signs Vital Signs Date Time Temp Pulse Resp B/P (MAP) Pulse Ox O2 Delivery O2 Flow Rate FiO2 10/19/18 21:49 60 16 167/91 (116) 99 10/19/18 20:15 Room Air 10/19/18 18:20 96.1 Laboratory Data Labs 24H Laboratory Tests 2 10/19/18 18:39: Immature Granulocyte % (Auto) 0.3, White Blood Count 6.3, Red Blood Count 3.85L, Hemoglobin 12.3L, Hematocrit 37.6L, Mean Corpuscular Volume 97.7H, Mean Corpu scular Hemoglobin 31.9, Mean Corpuscular Hemoglobin Concent 32.7, Red Cell Distribution Width 13.2, Platelet Count 167, Neutrophils (%) (Auto) 70.9H, Lymphocytes (%) (Auto) 17.0L, Monocytes (%) (Auto) 9.0H, Eosinophils (%) (Auto) 2.2, Basophils (%) (Auto) 0.6, Neutrophils # (Auto) 4.5, Lymphocytes # (Auto) 1.1L, Monocytes # (Auto) 0.6, Eosinophils # (Auto) 0.1, Basophils # (Auto) 0.0, Nucleated Red Blood Cells % (auto) 0.0, Anion Gap 8, Glomerular Filtration Rate > 60.0, Osmolality 292, Lactic Acid Level 1.7, Calcium Level 8.7L, Aspartate Amino Transf (AST/SGOT) 19, Alanine Aminotransferase (ALT/SGPT) 21, Alkaline Phosphatase 72, Total Bilirubin 0.9, Direct Bilirubin 0.2, Ammonia 21, Total C reatine Kinase 125, Creatine Kinase MB 4.9H, Creatine Kinase MB Relative Index 3.92, Troponin I 0.02, Total Protein 6.3L, Albumin 3.7, Albumin/Globulin Ratio 1.42, Thyroid Stimulating Hormone (TSH) 1.950 10/19/18 20:33: Urine Color YELLOW, Urine Appearance HAZY, Urine pH 5.0, Urine Specific [place] 1.011, Urine Protein NEGATIVE, Urine Glucose (UA) NEGATIVE, Urine Ketones NEGAT LAITH, Urine Blood 2+H, Urine Nitrite NEGATIVE, Urine Bilirubin NEGATIVE, Urine Urobilinogen 0.2, Urine Leukocyte Esterase NEGATIVE, Urine WBC (Auto) 2, Urine RBC (Auto) 10H, Urine Hyaline Casts (Auto) 0, Urine Bacteria (Auto) NEGATIVE, Urine Squamous Epithelial Cells 0, Urine Mucus (Auto) SMALL, Urine Sperm (Auto) CBC/BMP Laboratory Tests 10/19/18 18:39 Red Blood Count 3.85 L, Mean Corpuscular Volume 97.7 H, Mean Corpuscular Hemoglobin 31.9, Mean Corpuscular Hemoglobin Concent 32.7, Red Cell Distribution Width 13.2, Neutrophils (%) (Auto) 70.9 H, Lymphocytes (%) (Auto) 17.0 L, Monocytes (%) (Auto) 9.0 H, Eosinophils (%) (Auto) 2.2, Basophils (%) (Auto) 0.6, Neutrophils # (Auto) 4.5, Lymphocytes # (Auto) 1.1 L, Monocytes # (Auto) 0.6, Eosinophils # (Auto) 0.1, Basophils # (Auto) 0.0 Microbiology Microbiology 10/19/18 Blood Culture, Received Pending 10/19/18 Blood Culture, Received Pending Problems (1) Prolonged Q-T interval on ECG Status: Acute Problem Text: Admit to medical floor with telemetry for observation Will obtained. Troponins 3 We will repeat EKG in a.m. Hold Seroquel but continue all other home meds One-to-one watch Regular diet DVT prophylaxis with heparin Physical therapy evaluation in a.m. , Possibly needs home care referral before discharge (2) Orthostasis Status: Acute Problem Text: Most likely autonomic in nature secondary to advanced Parkinson disease and dementia Is no need for IV hydration, or any intervention at this point Continue home meds Plan / VTE VTE Prophylaxis Ordered?: Yes CELIO TRUJILLO MD Oct 19, 2018 22:59
[2018-10-20 03:50] VITALS: BP 158/90
[2018-10-20 04:17] LABS: HEMATOCRIT 37.2 % (42.0-52.0); HEMOGLOBIN 12.3 g/dl (13.5-17.5); MEAN CORPUSCULAR HEMOGLOBIN 31.5 pg (27.0-33.0); MEAN CORPUSCULAR HGB CONC 33.1 g/dl (32.0-36.5); MEAN CORPUSCULAR VOLUME 95.4 fl (80.0-96.0); PLATELET COUNT, AUTOMATED 161 10^3/uL (150-450); WHITE BLOOD COUNT 5.4 10^3/uL (4.0-10.0)
[2018-10-20 04:41] LABS: ALBUMIN 3.6 GM/DL (3.2-5.2); ALT/SGPT 21 U/L (12-78); BLOOD UREA NITROGEN 20 MG/DL (7-18); CALCIUM LEVEL 8.8 MG/DL (8.8-10.2); CARBON DIOXIDE LEVEL 29 MEQ/L (21-32); CHLORIDE LEVEL 108 MEQ/L (98-107); CREATININE FOR GFR 0.93 MG/DL (0.70-1.30); GLOMERULAR FILTRATION RATE > 60.0 (>42); GLUCOSE, FASTING 87 MG/DL (70-100); POTASSIUM SERUM 3.6 MEQ/L (3.5-5.1); SODIUM LEVEL 143 MEQ/L (136-145); TOTAL PROTEIN 6.2 GM/DL (6.4-8.2)
[2018-10-20 06:00] VITALS: BP 136/80
--- NOTE | 2018-10-20 07:41 | REP ---
REASON FOR EXAM: Altered mental status. COMPARISON: 03/16/2014 FINDINGS: The technique utilized in obtaining the radiograph has magnified the cardiac silhouette and accentuated the interstitial markings. The superior mediastinal structures are midline. The cardiac silhouette is unremarkable in size, shape, and position. The diaphragmatic surfaces of the lungs are regular, and the costophrenic angles are clear. The pulmonary archibald are clear. The imaged osseous structures are intact. IMPRESSION: There is no acute cardiopulmonary disease. Electronically Signed by Demarcus Hawkins DO 10/20/2018 10:20 A
[2018-10-20] MEDS: HEPARIN SOD (PORCINE) 5000 UNITS/ML VIAL SC SCH ×2 (08:32→21:22)
[2018-10-20] MEDS: CLOPIDOGREL 75 MG TAB PO SCH (08:32)
[2018-10-20] MEDS: DOCUSATE SODIUM 100 MG CAP PO SCH ×2 (08:32→21:22)
[2018-10-20 14:00] VITALS: BP 144/91
[2018-10-20 16:21] LABS: FREE T4 0.9 NG/DL (0.76-1.46); MAGNESIUM LEVEL 2.1 MG/DL (1.8-2.4)
[2018-10-20 16:31] LABS: FOLATE 13.8 NG/ML (>5.4)
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
--- NOTE | 2018-10-20 19:07 | ECGEPIP ---
[facility] Test Date: 2018-10-20 Pat Name: DONY MORTON Department: Room: [place] [address] Gender: Male Philosophy Instructor: KENDELL : 1940 Requested By: CELIO TRUJILLO Order Number: [id number] Reading MD: Terry Leslie Measurements Intervals [place] Rate: 66 P: 55 GA: 187 QRS: QRSD: 180 T: 31 QT: 459 QTc: 483 Interpretive Statements SINUS RHYTHM RIGHT BUNDLE BRANCH BLOCK LEFT ANTERIOR FASCICULAR BLOCK No significant change from 10/19/18. Electronically Signed on 10-20-2018 19:06:38 EDT by Terry Leslie
[2018-10-20] MEDS: risperiDONE 0.25 MG TAB PO SCH (21:21)
[2018-10-20] MEDS: ATORVASTATIN 20 MG TAB PO SCH (21:22)
[2018-10-20 22:00] VITALS: BP 134/89
[2018-10-21 07:40] LABS: HEMATOCRIT 38.3 % (42.0-52.0); HEMOGLOBIN 12.5 g/dl (13.5-17.5); MEAN CORPUSCULAR HGB CONC 32.6 g/dl (32.0-36.5); PLATELET COUNT, AUTOMATED 175 10^3/uL (150-450); RED BLOOD COUNT 4.03 10^6/uL (4.30-6.10); WHITE BLOOD COUNT 5.8 10^3/uL (4.0-10.0)
[2018-10-21 07:56] LABS: BLOOD UREA NITROGEN 22 MG/DL (7-18); CALCIUM LEVEL 8.8 MG/DL (8.8-10.2); CARBON DIOXIDE LEVEL 27 MEQ/L (21-32); CHLORIDE LEVEL 110 MEQ/L (98-107); CREATININE FOR GFR 0.92 MG/DL (0.70-1.30); GLOMERULAR FILTRATION RATE > 60.0 (>42); GLUCOSE, FASTING 113 MG/DL (70-100); POTASSIUM SERUM 3.6 MEQ/L (3.5-5.1); SODIUM LEVEL 143 MEQ/L (136-145)
[2018-10-21] MEDS: HEPARIN SOD (PORCINE) 5000 UNITS/ML VIAL SC SCH ×2 (08:19→20:38)
[2018-10-21] MEDS: risperiDONE 0.25 MG TAB PO SCH ×2 (08:19→20:38)
[2018-10-21] MEDS: DOCUSATE SODIUM 100 MG CAP PO SCH ×2 (08:19→20:38)
[2018-10-21] MEDS: CLOPIDOGREL 75 MG TAB PO SCH (08:19)
--- NOTE | 2018-10-21 09:05 | CR ---
DATE OF CONSULTATION: 10/21/2018 REQUESTING PROVIDER: Dr. Edward Brito REASON FOR CONSULTATION: Evaluation for patient with suspected Lewy body dementia and Parkinsonian symptoms for treatment of agitation, hallucinations. The patient is a 78-year-old male who was admitted to [facility] after being brought in by family for lethargy, sleepiness, tiredness and found to have a QTC prolongation of 485. The patient's Seroquel which was recently started for visual hallucinations 25 mg twice a was stopped. The patient is agreeable to go ahead and start risperidone 0.25 mg twice a day. The patient has been told by Dr. Brito to consider treatment of Sinemet for treatment of Parkinson's. The family over the past several months has been on the fence regarding whether they wish to treat him with Sinemet. In the past we have tried Sinemet without any significant noticeable difference in his symptoms. The patient was having tiredness on the medications so they wanted to discontinue it. At the present time the patient's is unsure whether she wishes to started up again. She does note that the patient is a little bit more unsteady and having a little bit more of a tremor that he did a few months ago. The patient's understands that while on the medication his dysautonomia and tiredness can certainly worsen. The patient is having episodes of hyper and hypotension. He would benefit from wearing compression stockings all the time. He is remaining on aspirin 81 mg daily and atorvastatin 40 mg daily as well as Plavix 75 mg daily for his heart. The patient, at the present time is confused. He understands he is in the hospital. He knows his name but he does not know the year or the month. He does not why he is in the hospital. He has quite advanced dementia. REVIEW OF SYSTEMS: 14-point review of systems obtained and is negative except as per history of present illness. ALLERGIES: PENICILLIN. HOME MEDICATIONS: aspirin 81 mg by mouth every day, atorvastatin 40 mg by mouth every day, clopidogrel 75 mg by mouth every day, quetiapine 25 mg by mouth twice a day. PAST MEDICAL HISTORY: Parkinson's disease/Parkinsonism. Lewy body demenia. Hyperlipidemia. PAST SURGICAL HISTORY: Unavailable. FAMILY HISTORY: Noncontributory. SOCIAL HISTORY: The patient does not use any tobacco, alcohol or illicit drugs. PHYSICAL EXAMINATION: Blood pressure is 144/91, pulse rate 82, respiratory rate is 20, oxygenation is 98% on room air, temperature is 97.4 degrees Fahrenheit. The patient is alert, awake and oriented to his name, he can state he is in the hospital but does not know the name of it, he does not know what city or month he is in, he does not know what year it is. He is able to follow commands. Pupils are 2.5 mm round, reactive to light. Extraocular movements are intact in all directions without nystagmus. Sensation V1, V2, V3 is intact to light touch. No facial asymmetry to activation. Palate elevates symmetrically. The patient has clear bradyphrenia, some bradykinesia is also noted. Tongue is midline. There is no pronator drift. Strength is 5/5 including bilateral deltoids, biceps, triceps, handgrip, iliopsoas, quadriceps, anterior tibialis. Sensory is intact to light touch in all four extremities. Coordination does not reveal any gross ataxia, dysmetria, increased tone cogwheel rigidity is noted in bilateral upper extremities right greater than left. No significant resting tremors present on exam today. Gait deferred. ASSESSMENT: 1. Suspect Lewy body dementia with Parkinson's symptoms. PLAN: 1. Agree with discontinuation of Seroquel due to QTC prolongation. Seroquel may have been creating symptoms of lethargy, tiredness, but at a 25 mg twice a day dosage did not improve the patient's hallucinations, the patient's agrees to switch to risperidone 0.25 mg by mouth twice a day. Avoid benzodiazepines in patient's with Lewy body dementia which can worsen the patient's symptoms of agitation and confusion. 2. The patient's wishes to hold of on starting Sinemet or other dopaminergic drugs at this time for treatment of Parkinson's. She will discussed with the patient and the patient's children as to how they wish to proceed, she understands that the dysautonomia is part of the disease and can certainly be exacerbated with treatment of Parkinson's with Sinemet though Sinemet may provide some benefit in the patient's gait stability and tremor which the family states is worsening. The patient can followup in the [facility] as scheduled. History obtained from both the patient and the patient's .
--- NOTE | 2018-10-21 10:23 | IPNPDOC ---
Subjective Date Seen The patient was seen on 10/21/18. Subjective Chief Complaint/HPI More agitated since 4 am with d/c of seroquel Constitutional: Denies: Chills, Fever Pulmonary: Denies: Dyspnea, Cough Cardiovascular: Denies: Chest Pain Gastrointestinal: Denies: Nausea, Vomiting, Abdominal Pain, Diarrhea, Constipation Objective Physical Examination General Exam: Positive: Alert, Mild Distress (confused at baseline but trying to climb out of bed and agitated. ) Neck Exam: Positive: Supple Chest Exam: Positive: Clear to auscultation, Normal air movement Heart Exam: Positive: Rate Normal, Normal S1, Normal S2 Abdomen Exam: Positive: Normal bowel sounds Extremity Exam: Negative: Edema Skin Exam: Positive: Nl turgor and temperature Neuro Exam: Positive: Other (. Moves all extremities. No focal motor or sensory deficit) Psych Exam: Positive: Other (. Advanced dementia) Assessment /Plan Problems (1) Prolonged Q-T interval on ECG Status: Acute Problem Text: 10/21 - Seroquel held Tele with improved QT interval Get F/U EKG Echo ordered due to chronic orthostasis (2) Orthostasis Status: Acute Problem Text: Most likely autonomic in nature secondary to advanced Parkinson disease and dementia Is no need for IV hydration, or any intervention at this point Continue home meds (3) Dementia with behavioral disturbance Status: Chronic Problem Text: More agitated with d/c of Seroquel. Now on Risperdal ? use prn zyprexa at low dose Plan/VTE VTE Prophylaxis Ordered?: Yes Disposition Charge nurse to discuss further with dispo plan - If she can handle him at home with current level of agitation, then d/c home today VS, I&O[facility] Vital Signs/I&O Vital Signs Date Time Temp Pulse Resp B/P (MAP) Pulse Ox O2 Delivery O2 Flow Rate FiO2 10/20/18 22:00 97.5 74 20 134/89 (104) 95 10/20/18 03:30 Room Air I&O- Last 24 Hours up to 6 AM 10/21/18 06:00 Intake Total 1170 ml Output Total 0 ml Balance 1170 ml Laboratory Data 24H LABS Laboratory Tests 2 10/20/18 15:29: Magnesium Level 2.1, Vitamin B12 Level 366, Folate 13.8, Thyroid Stimulating Hormone (TSH) 3.000, Free Thyroxine 0.90 10/21/18 07:25: Nucleated Red Blood Cells % (auto) 0.0 10/21/18 07:26: Anion Gap 6L, Glomerular Filtration Rate > 60.0, Blood Urea Nitrogen 22H, Creatinine 0.92, Sodium Level 143, Potassium Level 3.6, Chloride Level 110H, Carbon Dioxide Level 27, Calcium Level 8.8 CBC/BMP Laboratory Tests 10/21/18 07:25 Red Blood Count 4.03 L, Mean Corpuscular Volume 95.0, Mean Corpuscular Hemoglobin 31.0, Mean Corpuscular Hemoglobin Concent 32.6, Red Cell Distribution Width 13.2 10/21/18 07:26 Calcium Level 8.8 Microbiology Microbiology 10/19/18 Blood Culture - Preliminary, Resulted No growth after 24 hours . All specim... 10/19/18 Blood Culture - Preliminary, Resulted No growth after 24 hours . All specim... REAGAN ECHEVERRIA PA-C Oct 21, 2018 10:23
[2018-10-21 14:00] VITALS: BP_SYST 136; BP_SYST 137; BP_DIAS 93; BP_DIAS 95
--- NOTE | 2018-10-21 15:12 | ECGEPIP ---
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 Electronically Signed on 10-21-2018 15:11:58 EDT by Kota Martinez
--- NOTE | 2018-10-21 16:21 | CR ---
DATE OF CONSULTATION: 10/20/2018 REQUESTING PHYSICIAN: Dr. Mihai Brito. REASON FOR CONSULTATION: Management of Lewy Body dementia. HISTORY OF PRESENT ILLNESS: This is a 78-year-old male with a pertinent past medical history of Lewy Body dementia with Parkinson who presents to the emergency room (ER) for altered mental status on 10/19/2018 in the evening. The majority of the story was provided by the . She states that the patient was started on Seroquel for his visual hallucination and since then, he has becoming more lethargic and slept more than 24 hours before presenting to the emergency department (ED). The brought him to the ER for further evaluation. His EKG done the night prior showed that he had a QTc interval at 485 milliseconds and his orthostatics in the ER were positive from supine to sitting, with systolic drop from 144 to 116. The patient was admitted for further evaluation. The states that he has been extremely fatigued with this medication and would like to know if there is any other alternative. She also states that she has noticed that his resting tremor and unbalance have gotten worse since we have discontinued him from the Sinemet and would like to know if she should possibly restart it. PAST MEDICAL HISTORY: 1. Coronary artery disease with a right coronary stent in 2006 and 2014. 2. Hypercholesterolemia. 3. Hypertension. 4. Degenerative joint disease. 5. Difficulty hearing. 6. Diverticulitis. 7. Digoxin toxicity. 8. Advanced Parkinson's disease. 9. Lewy Body dementia. PAST SURGICAL HISTORY: 1. Angioplasty and stent 2006. 2. Colonoscopy with polyp resection. 3. Umbilical hernia repair. 4. Angioplasty stent in [place] [facility] 2014. 5. Colectomy in 2016. FAMILY HISTORY: Father , aneurysm. Mother , had a history of heart attacks and diabetes. Has three sisters, two brothers and one sister had Alzheimer's dementia. SOCIAL HISTORY: He is a never smoker. Does not drink. No history of illicit drug use. ALLERGIES: PENICILLIN, reaction unknown. HOME MEDICATIONS: - atorvastatin 40 mg daily - Plavix 75 mg daily - aspirin 81 mg daily - Nitrostat as needed for chest pain - Seroquel 25 mg twice a day REVIEW OF SYSTEMS: Unable to obtain from the patient, as he does not completely articulate appropriately, but follows commands. PHYSICAL EXAMINATION: VITAL SIGNS: Temperature 97.4, pulse 82, respiration rate 20, blood pressure 144/91 (108), pulse oximetry 98% on room air. GENERAL: This is a pleasant 78-year-old male who does not appear in acute distress, sitting up on the bed with a resting tremor. HEENT: Extraocular movements are intact bilaterally. No facial weakness. LUNGS: Clear to auscultation bilaterally. No audible wheezing, rhonchi or rales. HEART: Regular rate and rhythm with a 1/6 systolic ejection murmur at the second intercostal space, non-radiating. ABDOMEN: Soft, nontender. Positive bowel sounds in all four quadrants. NEUROLOGIC: Cranial nerves II-XII grossly intact. Masked facies with bradykinesis with a resting tremor noted. Alert and oriented to self and place, but not date. Follows commands. 5/5 muscle strength in the upper and lower extremities. Deep tendon reflexes 2+ in the knees and Achilles. Negative Babinski. LABORATORY: Hematology: WBC 5.4, hemoglobin 12.3, hematocrit 37.2, platelets 161. Chemistry: Sodium 143, potassium 3.6, chloride 108, carbon dioxide 29, BUN 20, creatinine 0.93, fasting glucose 87, calcium 8.8, magnesium 2.1. Liver profile within normal limits. Troponin times three negative. Vitamin B12, folate, TSH, all within normal limits. Urinalysis negative for urinary tract infection (UTI). IMAGING: Head CT negative for any intracranial findings. Chest x-ray negative for acute cardiopulmonary disease. ASSESSMENT AND PLAN: This is a 78-year-old male with a pertinent past medical history of advanced Parkinson's disease and Lewy Body dementia who presented in to the ER for altered mental status. In the ER, was found to have a prolonged QTC at 485 milliseconds. The patient was then admitted for evaluation. RECOMMENDATIONS: 1. Visual hallucination secondary to Lewy Body dementia. Neurologically, the patient is currently stable at baseline Parkinson's. He does take Seroquel 25 mg twice a day, which has been stopped since he has been admitted. We will discontinue that medication because of the prolonged QTc. We will instead start risperidone 0.25 by mouth twice a day, first dose tonight. The understands that this has side effects of fatigue and sleepiness, but it will have a less likely effect on the QTc interval, so it would be a better alternative to manage his visual hallucination. Recommendation is also to avoid benzodiazepines in patients with Lewy Body dementia, for it will worsen their hallucinations. 2. Advanced Parkinson's disease. The discussed a possible restarting the carbidopa, which was previously discontinued at the neurologist appointment outpatient for they noticed that his resting tremor and unbalance was not as bad. The does state at this time that his resting tremor and his balance has worsened and would like to know if they could possibly restart the Sinemet, but she would like to discuss it with her kids first before making a final decision. At this time, we will not restart the Sinemet unless they have come to an agreement. Understand that restarting the Sinemet can also cause a side effect of lethargy and fatigue.
[2018-10-21] MEDS ORDERED: LORazepam 2 MG/ML VIAL (J2060) IV PRN (17:45)
[2018-10-21] MEDS: ATORVASTATIN 20 MG TAB PO SCH (20:38)
[2018-10-21 22:00] VITALS: BP 121/71
[2018-10-22 06:00] VITALS: BP 120/75
[2018-10-22] MEDS: risperiDONE 0.25 MG TAB PO SCH (09:00)
[2018-10-22] MEDS: HEPARIN SOD (PORCINE) 5000 UNITS/ML VIAL SC SCH ×2 (09:52→22:14)
[2018-10-22] MEDS: DOCUSATE SODIUM 100 MG CAP PO SCH ×2 (09:53→22:13)
[2018-10-22] MEDS: CLOPIDOGREL 75 MG TAB PO SCH (09:53)
--- NOTE | 2018-10-22 13:34 | IPN ---
DATE: 10/22/2018 Judah was lethargic and sedated yesterday on a low dose Risperdal. His refuses to let the nurses give him anymore. PHYSICAL EXAMINATION: Afebrile. Vital signs stable. I examined him in his bed. He was a bit agitated over a delusion he was having over his television controller. I managed to calm him down. Lungs clear. Heart regular rhythm. Abdomen soft, nontender. Trace peripheral edema. IMPRESSION: 1. Lewy body dementia with behavioral disturbance. He has had QT prolongation with Seroquel and excess sedation on Risperdal. I called his Elina. We had a long discussion about his condition, his prognosis and challenges of balancing behavioral control with sedation. Will try Zyprexa, which he has not had before. Need to avoid benzodiazepines which can increase agitation in this situation.
[2018-10-22 14:00] VITALS: BP 128/65
[2018-10-22] MEDS: OLANZapine 2.5MG TABLET PO SCH ×2 (14:53→21:00)
[2018-10-22 22:00] VITALS: BP 118/73
[2018-10-22] MEDS: ATORVASTATIN 20 MG TAB PO SCH (22:13)
[2018-10-23 06:00] VITALS: BP 117/74
[2018-10-23 06:26] LABS: HEMATOCRIT 36.3 % (42.0-52.0); HEMOGLOBIN 11.9 g/dl (13.5-17.5); MEAN CORPUSCULAR HEMOGLOBIN 31.7 pg (27.0-33.0); MEAN CORPUSCULAR HGB CONC 32.8 g/dl (32.0-36.5); MEAN CORPUSCULAR VOLUME 96.8 fl (80.0-96.0); PLATELET COUNT, AUTOMATED 159 10^3/uL (150-450); RED BLOOD COUNT 3.75 10^6/uL (4.30-6.10); WHITE BLOOD COUNT 5.2 10^3/uL (4.0-10.0)
[2018-10-23 06:41] LABS: BLOOD UREA NITROGEN 32 MG/DL (7-18); CALCIUM LEVEL 8.8 MG/DL (8.8-10.2); CARBON DIOXIDE LEVEL 30 MEQ/L (21-32); CHLORIDE LEVEL 111 MEQ/L (98-107); CREATININE FOR GFR 1.11 MG/DL (0.70-1.30); GLOMERULAR FILTRATION RATE > 60.0 (>42); GLUCOSE, FASTING 91 MG/DL (70-100); POTASSIUM SERUM 4.1 MEQ/L (3.5-5.1); SODIUM LEVEL 147 MEQ/L (136-145)
[2018-10-23] MEDS: HEPARIN SOD (PORCINE) 5000 UNITS/ML VIAL SC SCH ×2 (10:12→22:58)
[2018-10-23] MEDS: CLOPIDOGREL 75 MG TAB PO SCH (10:12)
[2018-10-23] MEDS: DOCUSATE SODIUM 100 MG CAP PO SCH (10:13)
[2018-10-23] MEDS: OLANZapine 2.5MG TABLET PO SCH ×2 (10:13→21:00)
[2018-10-23 14:00] VITALS: BP 124/82
[2018-10-23] MEDS ORDERED: LORazepam 0.5 MG TAB PO PRN (14:30)
[2018-10-23] MEDS ORDERED: LORazepam 2 MG/ML VIAL (J2060) IM PRN (15:30)
[2018-10-23] MEDS: DOCUSATE SOD LIQ 100MG/10ML UDC PO SCH (21:00)
[2018-10-23] MEDS: ATORVASTATIN 20 MG TAB PO SCH (21:00)
--- NOTE | 2018-10-23 21:19 | IPN ---
DATE: 10/23/2018 Judah Nolasco was seen in [address] [place] [address]. He was sleeping when he say him. According to nursing staff, he was up most of the night, also up most of the morning, so he is probably just catching up on his sleep. We started him on Zyprexa yesterday to try to control dementia with behavioral disturbance. PHYSICAL EXAMINATION: Afebrile. Vital signs stable. He is sleeping now, but easily arousable. Lungs are clear. Heart regular rate and rhythm. Abdomen soft nontender. PLAN: See how the Zyprexa goes. Concerned about his sodium, it is up to 147. We need to push fluids when he is awake. Followup labs ordered for tomorrow.
[2018-10-23 22:00] VITALS: BP 139/80
[2018-10-24 06:00] VITALS: BP 132/81
[2018-10-24 06:44] LABS: HEMATOCRIT 39.4 % (42.0-52.0); HEMOGLOBIN 12.7 g/dl (13.5-17.5); MEAN CORPUSCULAR HEMOGLOBIN 31.6 pg (27.0-33.0); MEAN CORPUSCULAR HGB CONC 32.2 g/dl (32.0-36.5); PLATELET COUNT, AUTOMATED 146 10^3/uL (150-450); RED BLOOD COUNT 4.02 10^6/uL (4.30-6.10); WHITE BLOOD COUNT 5.6 10^3/uL (4.0-10.0)
[2018-10-24 06:58] LABS: BLOOD UREA NITROGEN 34 MG/DL (7-18); CALCIUM LEVEL 8.7 MG/DL (8.8-10.2); CARBON DIOXIDE LEVEL 29 MEQ/L (21-32); CHLORIDE LEVEL 112 MEQ/L (98-107); CREATININE FOR GFR 0.85 MG/DL (0.70-1.30); GLOMERULAR FILTRATION RATE > 60.0 (>42); GLUCOSE, FASTING 82 MG/DL (70-100); POTASSIUM SERUM 3.7 MEQ/L (3.5-5.1); SODIUM LEVEL 144 MEQ/L (136-145)
[2018-10-24] MEDS: HALOPERIDOL 5 MG/ML VIAL (J1630) IM PRN ×2 (09:43→18:34)
[2018-10-24] MEDS: DOCUSATE SOD LIQ 100MG/10ML UDC PO SCH ×2 (11:08→21:00)
[2018-10-24] MEDS: CLOPIDOGREL 75 MG TAB PO SCH (11:10)
[2018-10-24] MEDS: OLANZapine 2.5MG TABLET PO SCH ×2 (11:12→21:36)
[2018-10-24] MEDS: HEPARIN SOD (PORCINE) 5000 UNITS/ML VIAL SC SCH ×2 (11:13→21:35)
--- NOTE | 2018-10-24 11:59 | IPNPDOC ---
Subjective Date Seen The patient was seen on 10/24/18. Subjective Chief Complaint/HPI prolonged QT Events since last encounter Patient continues to to attempt to get OOB. sitter at bedside General: Reports: ROS Unobtainable Objective Physical Examination General Exam: Positive: Alert, Mild Distress (confused at baseline but trying to climb out of bed and agitated. ) Neck Exam: Positive: Supple Chest Exam: Positive: Clear to auscultation, Normal air movement Heart Exam: Positive: Rate Normal, Normal S1, Normal S2 Abdomen Exam: Positive: Normal bowel sounds Extremity Exam: Negative: Edema Skin Exam: Positive: Nl turgor and temperature Neuro Exam: Positive: Other (. Moves all extremities. No focal motor or sensory deficit) Psych Exam: Positive: Other (. Advanced dementia) Assessment /Plan Problems (1) Dementia with behavioral disturbance Status: Chronic Problem Text: Trialed Resperidone with poor tolerance. Currently taking Zyprexa. Monitor behavior. sitter at bedside for patient safety. Recommendation is also to avoid benzodiazepines in patients with Lewy Body dementia, for it will worsen their hallucinations. (2) Orthostasis Status: Acute Problem Text: Most likely autonomic in nature secondary to advanced Parkinson disease and dementia Is no need for IV hydration, or any intervention at this point Continue home meds (3) Prolonged Q-T interval on ECG Status: Resolved Problem Text: 10/21 - Seroquel held Tele with improved QT interval Get F/U EKG Echo ordered due to chronic orthostasis Plan/VTE VTE Prophylaxis Ordered?: Yes VS, I&O, 24H, Fishbone Vital Signs/I&O Vital Signs Date Time Temp Pulse Resp B/P (MAP) Pulse Ox O2 Delivery O2 Flow Rate FiO2 10/24/18 06:00 97.2 62 18 132/81 (98) 99 10/20/18 03:30 Room Air I&O- Last 24 Hours up to 6 AM 10/24/18 06:00 Intake Total 1565 ml Output Total 0 ml Balance 1565 ml Laboratory Data 24H LABS Laboratory Tests 2 10/24/18 06:25: Nucleated Red Blood Cells % (auto) 0.0, Anion Gap 3L, Glomerular Filtration Rate > 60.0, Blood Urea Nitrogen 34H, Creatinine 0.85, Sodium Level 144, Potassium Level 3.7, Chloride Level 112H, Carbon Dioxide Level 29, Calcium Level 8.7L CBC/BMP Laboratory Tests 7/22/19 06:25 Red Blood Count 4.02 L, Mean Corpuscular Volume 98.0 H, Mean Corpuscular Hemoglobin 31.6, Mean Corpuscular Hemoglobin Concent 32.2, Red Cell Distribution Width 13.2, Calcium Level 8.7 L Microbiology Microbiology 10/19/18 Blood Culture - Preliminary, Resulted No Growth after 72 hours. All specime... 10/19/18 Blood Culture - Preliminary, Resulted No Growth after 72 hours. All specime... Le Perez [facility] Oct 24, 2018 11:58
[2018-10-24 14:00] VITALS: BP 149/88
[2018-10-24] MEDS: ATORVASTATIN 20 MG TAB PO SCH (21:00)
[2018-10-24 22:00] VITALS: BP 132/71
[2018-10-25 06:00] VITALS: BP 121/64
[2018-10-25 06:20] LABS: HEMATOCRIT 38.5 % (42.0-52.0); HEMOGLOBIN 12.6 g/dl (13.5-17.5); MEAN CORPUSCULAR HEMOGLOBIN 31.6 pg (27.0-33.0); MEAN CORPUSCULAR HGB CONC 32.7 g/dl (32.0-36.5); MEAN CORPUSCULAR VOLUME 96.5 fl (80.0-96.0); PLATELET COUNT, AUTOMATED 167 10^3/uL (150-450); RED BLOOD COUNT 3.99 10^6/uL (4.30-6.10)
[2018-10-25 06:40] LABS: BLOOD UREA NITROGEN 30 MG/DL (7-18); CALCIUM LEVEL 8.8 MG/DL (8.8-10.2); CARBON DIOXIDE LEVEL 30 MEQ/L (21-32); CHLORIDE LEVEL 111 MEQ/L (98-107); CREATININE FOR GFR 0.88 MG/DL (0.70-1.30); GLOMERULAR FILTRATION RATE > 60.0 (>42); GLUCOSE, FASTING 81 MG/DL (70-100); POTASSIUM SERUM 3.6 MEQ/L (3.5-5.1); SODIUM LEVEL 145 MEQ/L (136-145)
[2018-10-25] MEDS: CLOPIDOGREL 75 MG TAB PO SCH (09:24)
[2018-10-25] MEDS: DOCUSATE SOD LIQ 100MG/10ML UDC PO SCH ×2 (09:24→21:07)
[2018-10-25] MEDS: OLANZapine 2.5MG TABLET PO SCH (09:24)
[2018-10-25] MEDS: HEPARIN SOD (PORCINE) 5000 UNITS/ML VIAL SC SCH ×2 (09:25→21:08)
--- NOTE | 2018-10-25 10:52 | IPNPDOC ---
Subjective Date Seen The patient was seen on 10/25/18. Subjective Chief Complaint/HPI lethargy Events since last encounter Had aggressive behaviors overnight. Now sleeping. General: Reports: ROS Unobtainable Objective Physical Examination General Exam: Positive: Alert, Mild Distress (confused at baseline but trying to climb out of bed and agitated. ) Neck Exam: Positive: Supple Chest Exam: Positive: Clear to auscultation, Normal air movement Heart Exam: Positive: Rate Normal, Normal S1, Normal S2 Abdomen Exam: Positive: Normal bowel sounds Extremity Exam: Negative: Edema Skin Exam: Positive: Nl turgor and temperature Neuro Exam: Positive: Other (. Moves all extremities. No focal motor or sensory deficit) Psych Exam: Positive: Other (. Advanced dementia) Assessment /Plan Problems (1) Lewy body dementia Problem Text: 10/25 increased to 2.5 at 6, 5 at 16 (given agitation increases ~16); long dw /family that doubtful patient will be stable enough to dc back to home c ; + PT eval 10/22 changed to olanz 2.5 BID 10/21 risper 0.25 BID not tolerated sitter at bedside for patient safety. quet 25 BID held on admission 2 prolonged QTC avoid benzodiazepines in patients with Lewy Body dementia, for it will worsen their hallucinations. (2) Orthostasis Status: Resolved Problem Text: Most likely autonomic in nature secondary to advanced Parkinson disease and dementia Is no need for IV hydration, or any intervention at this point Continue home meds (3) Prolonged Q-T interval on ECG Status: Resolved Problem Text: 10/26 reassess QTC on olanz Plan/VTE VTE Prophylaxis Ordered?: Yes VS, I&O, 24H, [facility] Vital Signs/I&O Vital Signs Date Time Temp Pulse Resp B/P (MAP) Pulse Ox O2 Delivery O2 Flow Rate FiO2 10/25/18 06:00 98.3 16 15 121/64 (83) 97 10/20/18 03:30 Room Air I&O- Last 24 Hours up to 6 AM 10/25/18 06:00 Intake Total 600 ml Balance 600 ml Laboratory Data 24H LABS Laboratory Tests 2 10/25/18 05:31: Nucleated Red Blood Cells % (auto) 0.0, Anion Gap 4L, Glomerular Filtration Rate > 60.0, Blood Urea Nitrogen 30H, Creatinine 0.88, Sodium Level 145, Potassium Level 3.6, Chloride Level 111H, Carbon Dioxide Level 30, Calcium Level 8.8 CBC/BMP Laboratory Tests 10/25/18 05:31 Red Blood Count 3.99 L, Mean Corpuscular Volume 96.5 H, Mean Corpuscular Hemoglobin 31.6, Mean Corpuscular Hemoglobin Concent 32.7, Red Cell Distribution Width 13.2, Calcium Level 8.8 Microbiology Microbiology 10/19/18 Blood Culture - Final, Complete NO GROWTH AFTER 5 DAYS 10/19/18 Blood Culture - Final, Complete NO GROWTH AFTER 5 DAYS Le Perez Oct 25, 2018 10:52 Thai Sheridan M.D. Oct 25, 2018 17:38
[2018-10-25 14:00] VITALS: BP 118/69
[2018-10-25] MEDS: HALOPERIDOL 5 MG/ML VIAL (J1630) IM PRN (16:54)
[2018-10-25] MEDS ORDERED: OLANZapine 2.5MG TABLET PO ONE (21:00)
[2018-10-25] MEDS: ATORVASTATIN 20 MG TAB PO SCH (21:07)
[2018-10-25 22:00] VITALS: BP 142/76
[2018-10-26 06:00] VITALS: BP 133/66
[2018-10-26] MEDS: OLANZapine 2.5MG TABLET PO SCH ×2 (06:00→07:43)
[2018-10-26 06:15] LABS: HEMATOCRIT 37.2 % (42.0-52.0); HEMOGLOBIN 12.4 g/dl (13.5-17.5); MEAN CORPUSCULAR HEMOGLOBIN 31.1 pg (27.0-33.0); MEAN CORPUSCULAR HGB CONC 33.3 g/dl (32.0-36.5); MEAN CORPUSCULAR VOLUME 93.2 fl (80.0-96.0); PLATELET COUNT, AUTOMATED 159 10^3/uL (150-450); RED BLOOD COUNT 3.99 10^6/uL (4.30-6.10); WHITE BLOOD COUNT 6.1 10^3/uL (4.0-10.0)
[2018-10-26 06:33] LABS: BLOOD UREA NITROGEN 38 MG/DL (7-18); CALCIUM LEVEL 8.7 MG/DL (8.8-10.2); CARBON DIOXIDE LEVEL 29 MEQ/L (21-32); CHLORIDE LEVEL 111 MEQ/L (98-107); CREATININE FOR GFR 0.91 MG/DL (0.70-1.30); GLOMERULAR FILTRATION RATE > 60.0 (>42); GLUCOSE, FASTING 93 MG/DL (70-100); MAGNESIUM LEVEL 2.4 MG/DL (1.8-2.4); POTASSIUM SERUM 3.4 MEQ/L (3.5-5.1); SODIUM LEVEL 144 MEQ/L (136-145)
[2018-10-26] MEDS: DOCUSATE SOD LIQ 100MG/10ML UDC PO SCH ×2 (07:43→21:30)
[2018-10-26] MEDS: CLOPIDOGREL 75 MG TAB PO SCH (07:43)
[2018-10-26] MEDS: HEPARIN SOD (PORCINE) 5000 UNITS/ML VIAL SC SCH ×2 (07:44→21:30)
--- NOTE | 2018-10-26 10:50 | IPNPDOC ---
Subjective Date Seen The patient was seen on 10/26/18. Subjective Chief Complaint/HPI Syncope Events since last encounter Continues with aggressive behaviors. Started on Zyprexa 2.5 mg in am and 5 mg at 1600. Intolerant to risperidone. General: Reports: ROS Unobtainable Objective Physical Examination General Exam: Positive: Alert, No Acute Distress Neck Exam: Positive: Supple Chest Exam: Positive: Clear to auscultation, Normal air movement Heart Exam: Positive: Rate Normal, Normal S1, Normal S2 Abdomen Exam: Positive: Normal bowel sounds Extremity Exam: Negative: Edema Skin Exam: Positive: Nl turgor and temperature Neuro Exam: Positive: Other Psych Exam: Positive: Other Assessment /Plan Problems (1) Lewy body dementia Problem Text: 10/26/2018: Spoke with Dr. Guan: he recommends continuing with Anti- psychotics for behaviors. Sinemet will only help with tremors and has autonomic side effects. HOLD on Sinemet. Consider psychiatry eval if unable to manage behaviors. 10/25 increased to 2.5 at 6, 5 at 16 (given agitation increases ~16); long dw /family that doubtful patient will be stable enough to dc back to home c ; + PT eval 10/22 changed to olanz 2.5 BID 10/21 risper 0.25 BID not tolerated sitter at bedside for patient safety. quet 25 BID held on admission 2 prolonged QTC avoid benzodiazepines in patients with Lewy Body dementia, for it will worsen their hallucinations. (2) Orthostasis Status: Resolved Problem Text: Most likely autonomic in nature secondary to advanced Parkinson disease and dementia Is no need for IV hydration, or any intervention at this point Continue home meds (3) Prolonged Q-T interval on ECG Status: Resolved Problem Text: 10/26 reassess QTC on olanz Plan/VTE VTE Prophylaxis Ordered?: Yes VS, I&O, 24H, Fishbone Vital Signs/I&O Vital Signs Date Time Temp Pulse Resp B/P (MAP) Pulse Ox O2 Delivery O2 Flow Rate FiO2 10/26/18 06:00 96.8 77 16 133/66 (88) 94 10/20/18 03:30 Room Air I&O- Last 24 Hours up to 6 AM 10/26/18 05:59 Intake Total 170 ml Output Total 0 ml Balance 170 ml Laboratory Data 24H LABS Laboratory Tests 2 10/26/18 05:40: Nucleated Red Blood Cells % (auto) 0.0, Anion Gap 4L, Glomerular Filtration Rate > 60.0, Blood Urea Nitrogen 38H, Creatinine 0.91, Sodium Level 144, Potassium Level 3.4L, Chloride Level 111H, Carbon Dioxide Level 29, Calcium Level 8.7L, Magnesium Level 2.4 CBC/BMP Laboratory Tests 10/26/18 05:40 Red Blood Count 3.99 L, Mean Corpuscular Volume 93.2, Mean Corpuscular Hemoglobin 31.1, Mean Corpuscular Hemoglobin Concent 33.3, Red Cell Distribution Width 13.3, Calcium Level 8.7 L Microbiology Microbiology 10/19/18 Blood Culture - Final, Complete NO GROWTH AFTER 5 DAYS 10/19/18 Blood Culture - Final, Complete NO GROWTH AFTER 5 DAYS Le Perez PRIMARY THERAPIST Oct 26, 2018 10:50
[2018-10-26 14:00] VITALS: BP 143/88
[2018-10-26] MEDS ORDERED: OLANZapine 5 MG TAB PO SCH (16:00)
--- NOTE | 2018-10-26 16:40 | ECGEPIP ---
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
[2018-10-26] MEDS: HALOPERIDOL 5 MG/ML VIAL (J1630) IM PRN (19:57)
[2018-10-26] MEDS: ATORVASTATIN 20 MG TAB PO SCH (21:30)
[2018-10-26 22:00] VITALS: BP 143/83
[2018-10-27] MEDS: OLANZapine 2.5MG TABLET PO SCH ×2 (05:11→17:03)
[2018-10-27 06:00] VITALS: BP 124/71
[2018-10-27 06:18] LABS: HEMATOCRIT 38.5 % (42.0-52.0); HEMOGLOBIN 12.6 g/dl (13.5-17.5); MEAN CORPUSCULAR HGB CONC 32.7 g/dl (32.0-36.5); MEAN CORPUSCULAR VOLUME 94.6 fl (80.0-96.0); PLATELET COUNT, AUTOMATED 145 10^3/uL (150-450); RED BLOOD COUNT 4.07 10^6/uL (4.30-6.10); WHITE BLOOD COUNT 5.1 10^3/uL (4.0-10.0)
[2018-10-27 06:51] LABS: BLOOD UREA NITROGEN 34 MG/DL (7-18); CALCIUM LEVEL 9.1 MG/DL (8.8-10.2); CARBON DIOXIDE LEVEL 28 MEQ/L (21-32); CHLORIDE LEVEL 112 MEQ/L (98-107); CREATININE FOR GFR 0.77 MG/DL (0.70-1.30); GLOMERULAR FILTRATION RATE > 60.0 (>42); GLUCOSE, FASTING 94 MG/DL (70-100); POTASSIUM SERUM 3.5 MEQ/L (3.5-5.1); SODIUM LEVEL 145 MEQ/L (136-145)
[2018-10-27] MEDS: HEPARIN SOD (PORCINE) 5000 UNITS/ML VIAL SC SCH ×2 (08:22→20:08)
[2018-10-27] MEDS: CLOPIDOGREL 75 MG TAB PO SCH (08:22)
[2018-10-27] MEDS: DOCUSATE SOD LIQ 100MG/10ML UDC PO SCH ×2 (08:23→20:07)
[2018-10-27 14:00] VITALS: BP 135/87
--- NOTE | 2018-10-27 16:43 | DSES ---
DATE OF ADMISSION: 10/23/2018 DATE OF DISCHARGE: PRIMARY CARE PROVIDER: Dr. Doug Rojas HISTORY OF PRESENT ILLNESS: This is a 78-year old gentleman with a past medical history of Parkinson's disease and advanced dementia who presented to [facility] for increased lethargy for 24 hours prior. The patient was evaluated in the emergency department (ED) and he was noted to have orthostatic changes in his blood pressures as well as a QTc interval of more than 450. Patient was subsequently admitted to family medicine service. HOSPITAL COURSE: Patient's Seroquel that he had been taking for hallucinations and had been well managed on had to be stopped. Patient's behaviors had escalated significantly with aggression, attempting to get out of bed, and lack of safety awareness for himself as well as others. Patient did receive a neurology consult with Dr. Simon and recommendations include getting his behaviors under control secondary to Lewy body dementia and his Parkinson's symptoms. Benzodiazepines are to be avoided as patient's with Lewy body dementia can have worsening symptoms of agitation and confusion. Patient did initially receive a few doses of benzodiazepines until the neurologist's recommendations were obtained. Patient has been started on Zyprexa 5 mg at 4 p.m. and 2.5 mg in the morning. His behaviors have slowly improved. Last dose of Haldol was on 10/26/2018 at approximately 6 p.m. On physical exam today vital signs are stable, he is afebrile. Cardiovascular: Heart rate and rhythm are regular. Pulmonary: Lungs are clear. Abdomen: Soft and nontender. Neurologic: Patient responds to his name, mumbles and speaks incoherently, does not maintain eye contact, is disoriented to place and time as well. ASSESSMENT: 1. Lewy body dementia. 2. QT prolongation. 3. Parkinson's disease. PLAN: Patient is going to be transitioned to prison facility (SNF) status for further rehabilitation, obtaining behavior modification, and working towards discharge disposition with family either home or to a prison facility. Patient and family services is involved. Patient's medications, diet, and followup will be dictated at time of discharge.
[2018-10-27] MEDS: ATORVASTATIN 20 MG TAB PO SCH (20:08)
[2018-10-27 22:00] VITALS: BP 131/88
[2018-10-28 06:00] VITALS: BP 136/85
[2018-10-28] MEDS: OLANZapine 2.5MG TABLET PO SCH ×2 (06:13→17:08)
[2018-10-28] MEDS: DOCUSATE SOD LIQ 100MG/10ML UDC PO SCH ×2 (08:28→21:59)
[2018-10-28] MEDS: CLOPIDOGREL 75 MG TAB PO SCH (08:28)
[2018-10-28] MEDS: HEPARIN SOD (PORCINE) 5000 UNITS/ML VIAL SC SCH ×2 (08:29→21:59)
[2018-10-28] MEDS: HALOPERIDOL 5 MG/ML VIAL (J1630) IM PRN (12:51)
[2018-10-28 14:00] VITALS: BP 119/86
[2018-10-28] MEDS: ATORVASTATIN 20 MG TAB PO SCH (21:59)
[2018-10-28 22:00] VITALS: BP 124/91
[2018-10-29 06:00] VITALS: BP 124/73
[2018-10-29] MEDS: OLANZapine 2.5MG TABLET PO SCH ×3 (06:02→17:19)
[2018-10-29 08:00] VITALS: BP 124/73
[2018-10-29] MEDS ORDERED: CLOPIDOGREL 75 MG TAB As Ordered ONE (09:04)
[2018-10-29] MEDS: CLOPIDOGREL 75 MG TAB PO SCH (09:18)
[2018-10-29] MEDS: DOCUSATE SOD LIQ 100MG/10ML UDC PO SCH ×2 (09:19→21:00)
[2018-10-29] MEDS: HEPARIN SOD (PORCINE) 5000 UNITS/ML VIAL SC SCH ×2 (09:20→21:35)
[2018-10-29] MEDS: ATORVASTATIN 20 MG TAB PO SCH (21:00)
[2018-10-29 22:00] VITALS: BP 126/90
[2018-10-30] MEDS: OLANZapine 2.5MG TABLET PO SCH ×2 (05:29→16:00)
[2018-10-30 06:00] VITALS: BP 102/64
[2018-10-30] MEDS: CLOPIDOGREL 75 MG TAB PO SCH (10:26)
[2018-10-30] MEDS: DOCUSATE SOD LIQ 100MG/10ML UDC PO SCH ×2 (10:26→21:16)
[2018-10-30] MEDS: HEPARIN SOD (PORCINE) 5000 UNITS/ML VIAL SC SCH ×2 (10:27→21:16)
[2018-10-30 14:00] VITALS: BP 138/94
[2018-10-30 15:03] VITALS: BP 102/64
[2018-10-30] MEDS: ATORVASTATIN 20 MG TAB PO SCH (21:16)
[2018-10-30 22:00] VITALS: BP 137/73
[2018-10-31] MEDS: OLANZapine 2.5MG TABLET PO SCH ×2 (05:23→16:23)
[2018-10-31 06:00] VITALS: BP 111/65
[2018-10-31] MEDS: DOCUSATE SOD LIQ 100MG/10ML UDC PO SCH ×2 (09:41→22:26)
[2018-10-31] MEDS: CLOPIDOGREL 75 MG TAB PO SCH (09:41)
[2018-10-31] MEDS: HEPARIN SOD (PORCINE) 5000 UNITS/ML VIAL SC SCH ×2 (09:41→22:26)
[2018-10-31 14:00] VITALS: BP 121/74
[2018-10-31 22:00] VITALS: BP 120/58
[2018-10-31] MEDS: ATORVASTATIN 20 MG TAB PO SCH (22:25)
[2018-11-01 06:00] VITALS: BP 103/61
[2018-11-01] MEDS: OLANZapine 2.5MG TABLET PO SCH ×2 (06:19→17:10)
[2018-11-01] MEDS: DOCUSATE SOD LIQ 100MG/10ML UDC PO SCH ×2 (08:06→20:32)
[2018-11-01] MEDS: HEPARIN SOD (PORCINE) 5000 UNITS/ML VIAL SC SCH ×2 (08:07→20:33)
[2018-11-01] MEDS: HALOPERIDOL 5 MG/ML VIAL (J1630) IM PRN ×2 (08:07→17:36)
[2018-11-01] MEDS: CLOPIDOGREL 75 MG TAB PO SCH (08:07)
[2018-11-01] MEDS ORDERED: DIVALPROEX 250 MG TAB PO SCH (09:00)
--- NOTE | 2018-11-01 12:16 | IPNPDOC ---
Subjective Date Seen The patient was seen on 11/01/18. Subjective Chief Complaint/HPI Patient sleeping after receiving Haldol General: Reports: ROS Unobtainable Objective Physical Examination General Exam: Positive: No Acute Distress; Negative: Alert Neck Exam: Positive: Supple Chest Exam: Positive: Clear to auscultation, Normal air movement Heart Exam: Positive: Rate Normal, Normal S1, Normal S2 Abdomen Exam: Positive: Normal bowel sounds Extremity Exam: Negative: Edema Skin Exam: Positive: Nl turgor and temperature Assessment /Plan Problems (1) Lewy body dementia Problem Text: 11/01/18: Nursing expressed concerns over some increased behaviors. Depakote was added to current regimen. We are going to reduce Haldol dose to 2mg prn 10/26/2018: Spoke with Dr. Guan: he recommends continuing with Anti- psychotics for behaviors. Sinemet will only help with tremors and has autonomic side effects. HOLD on Sinemet. Consider psychiatry eval if unable to manage behaviors. 10/25 increased to 2.5 at 6, 5 at 16 (given agitation increases ~16); long dw /family that doubtful patient will be stable enough to dc back to home c ; + PT eval 10/22 changed to olanz 2.5 BID 10/21 risper 0.25 BID not tolerated sitter at bedside for patient safety. quet 25 BID held on admission 2 prolonged QTC avoid benzodiazepines in patients with Lewy Body dementia, for it will worsen their hallucinations. (2) Orthostasis Status: Resolved Problem Text: Most likely autonomic in nature secondary to advanced Parkinson disease and dementia Is no need for IV hydration, or any intervention at this point Continue home meds (3) Prolonged Q-T interval on ECG Status: Resolved Problem Text: 10/26 reassess QTC on olanz Plan/VTE VTE Prophylaxis Ordered?: Yes VS, I&O, 24H, Fishbone Vital Signs/I&O Vital Signs Date Time Temp Pulse Resp B/P (MAP) Pulse Ox O2 Delivery O2 Flow Rate FiO2 11/01/18 06:00 97.9 76 20 103/61 (75) 98 I&O- Last 24 Hours up to 6 AM 11/01/18 06:00 Intake Total 1200 ml Output Total 0 ml Balance 1200 ml RENUKA MAX Nov 01, 2018 12:16
[2018-11-01 13:43] VITALS: BP 142/90
[2018-11-01] MEDS: DIVALPROEX SPRINKLE 125 MG CAP PO SCH (20:32)
[2018-11-01] MEDS: ATORVASTATIN 20 MG TAB PO SCH (20:32)
[2018-11-01 22:00] VITALS: BP 126/84
[2018-11-02 06:00] VITALS: BP 114/69
[2018-11-02 06:23] LABS: HEMATOCRIT 40.2 % (42.0-52.0); HEMOGLOBIN 13.3 g/dl (13.5-17.5); MEAN CORPUSCULAR HEMOGLOBIN 31.1 pg (27.0-33.0); MEAN CORPUSCULAR HGB CONC 33.1 g/dl (32.0-36.5); MEAN CORPUSCULAR VOLUME 94.1 fl (80.0-96.0); PLATELET COUNT, AUTOMATED 177 10^3/uL (150-450); RED BLOOD COUNT 4.27 10^6/uL (4.30-6.10); WHITE BLOOD COUNT 9.5 10^3/uL (4.0-10.0)
[2018-11-02] MEDS: OLANZapine 2.5MG TABLET PO SCH ×2 (06:35→16:37)
[2018-11-02 06:50] LABS: ALBUMIN 3.8 GM/DL (3.2-5.2); ALT/SGPT 38 U/L (12-78); BILIRUBIN,TOTAL 0.9 MG/DL (0.2-1.0); BLOOD UREA NITROGEN 40 MG/DL (7-18); CALCIUM LEVEL 9.6 MG/DL (8.8-10.2); CARBON DIOXIDE LEVEL 28 MEQ/L (21-32); CHLORIDE LEVEL 113 MEQ/L (98-107); CREATININE FOR GFR 0.93 MG/DL (0.70-1.30); GLOMERULAR FILTRATION RATE > 60.0 (>42); GLUCOSE, FASTING 101 MG/DL (70-100); POTASSIUM SERUM 3.4 MEQ/L (3.5-5.1); SODIUM LEVEL 147 MEQ/L (136-145); TOTAL PROTEIN 7.2 GM/DL (6.4-8.2)
[2018-11-02] MEDS: DIVALPROEX SPRINKLE 125 MG CAP PO SCH (09:11)
[2018-11-02] MEDS: ACETAMINOPHEN TAB 650MG DOSE (2X325MG) PO PRN (09:12)
[2018-11-02] MEDS: DOCUSATE SOD LIQ 100MG/10ML UDC PO SCH ×2 (09:12→21:33)
[2018-11-02] MEDS: HEPARIN SOD (PORCINE) 5000 UNITS/ML VIAL SC SCH ×2 (09:12→21:33)
[2018-11-02] MEDS: CLOPIDOGREL 75 MG TAB PO SCH (09:12)
[2018-11-02] MEDS: POTASSIUM CHLORIDE 10 MEQ SR TABLET PO SCH (12:21)
[2018-11-02] MEDS: HALOPERIDOL 5 MG/ML VIAL (J1630) IM PRN ×2 (13:10→20:15)
[2018-11-02 14:00] VITALS: BP 135/66
[2018-11-02] MEDS: ATORVASTATIN 20 MG TAB PO SCH (21:34)
[2018-11-03 06:00] VITALS: BP 127/77
[2018-11-03] MEDS: DOCUSATE SOD LIQ 100MG/10ML UDC PO SCH ×2 (11:28→20:20)
[2018-11-03] MEDS: DIVALPROEX SPRINKLE 125 MG CAP PO SCH (11:28)
[2018-11-03] MEDS: CLOPIDOGREL 75 MG TAB PO SCH (11:29)
[2018-11-03] MEDS: POTASSIUM CHLORIDE 10 MEQ SR TABLET PO SCH (11:29)
[2018-11-03] MEDS: HEPARIN SOD (PORCINE) 5000 UNITS/ML VIAL SC SCH ×2 (11:30→20:20)
[2018-11-03 14:00] VITALS: BP 137/58
[2018-11-03] MEDS: OLANZapine 2.5MG TABLET PO SCH (16:13)
[2018-11-03] MEDS: ATORVASTATIN 20 MG TAB PO SCH (20:20)
[2018-11-03 22:00] VITALS: BP 130/82
[2018-11-04 06:00] VITALS: BP 135/60
[2018-11-04] MEDS: DOCUSATE SOD LIQ 100MG/10ML UDC PO SCH ×3 (08:42→21:28)
[2018-11-04] MEDS: DIVALPROEX SPRINKLE 125 MG CAP PO SCH (08:42)
[2018-11-04] MEDS: HEPARIN SOD (PORCINE) 5000 UNITS/ML VIAL SC SCH ×3 (08:43→21:29)
[2018-11-04] MEDS: POTASSIUM CHLORIDE 10 MEQ SR TABLET PO SCH (08:43)
[2018-11-04] MEDS: CLOPIDOGREL 75 MG TAB PO SCH (08:43)
[2018-11-04 14:00] VITALS: BP 124/82
[2018-11-04] MEDS ORDERED: HALOPERIDOL 5 MG/ML VIAL (J1630) IV PRN (14:30)
[2018-11-04] MEDS ORDERED: HALOPERIDOL 5 MG/ML VIAL (J1630) IM PRN (21:00)
[2018-11-04] MEDS: ATORVASTATIN 20 MG TAB PO SCH (21:29)
[2018-11-04] MEDS: POLYVINYL ALCOHOL OPHTH SOLN 15 ML(LIQUITEARS) OU PRN (21:29)
[2018-11-04 22:00] VITALS: BP 124/89
[2018-11-05 06:00] VITALS: BP 129/93
--- NOTE | 2018-11-05 07:28 | REP ---
Clinical: Congestion and cough. Comparison: 10/19/2018. Findings: Left lower lobe infiltrate compatible with acute pneumonia / atelectasis. No effusion. No pneumothorax. Mediastinum and cardiac silhouette normal. Skeletal structures stable. Impression: Left lower lobe infiltrate. Follow-up to resolution recommended. Electronically Signed by Joe Hood MD 11/05/2018 07:21 A
--- NOTE | 2018-11-05 09:16 | IPNPDOC ---
Subjective Date Seen The patient was seen on 11/05/18. Subjective Chief Complaint/HPI observed cough General: Reports: ROS Unobtainable Objective Physical Examination General Exam: Positive: No Acute Distress; Negative: Alert Neck Exam: Positive: Supple Chest Exam: Positive: Clear to auscultation, Normal air movement, Rhonchi (l eft) Heart Exam: Positive: Rate Normal, Normal S1, Normal S2 Abdomen Exam: Positive: Normal bowel sounds Extremity Exam: Negative: Edema Skin Exam: Positive: Nl turgor and temperature Neuro Exam: Positive: Other (tremulous, grabs at examiner. not combative) Assessment /Plan Problems (1) Lewy body dementia Problem Text: 11/05: discussion yesterday with family RE current meds, requesting de-escalate meds to try to see if he will be more responsive and improve po intake. 11/01/18: Nursing expressed concerns over some increased behaviors. Depakote was added to current regimen. We are going to reduce Haldol dose to 2mg prn 10/26/2018: Spoke with Dr. Guan: he recommends continuing with Anti- psychotics for behaviors. Sinemet will only help with tremors and has autonomic side effects. HOLD on Sinemet. Consider psychiatry eval if unable to manage behaviors. 10/25 increased to 2.5 at 6, 5 at 16 (given agitation increases ~16); long dw /family that doubtful patient will be stable enough to dc back to home c ; + PT eval 10/22 changed to olanz 2.5 BID 10/21 risper 0.25 BID not tolerated sitter at bedside for patient safety. quet 25 BID held on admission 2 prolonged QTC avoid benzodiazepines in patients with Lewy Body dementia, for it will worsen their hallucinations. (2) Orthostasis Status: Resolved Problem Text: Most likely autonomic in nature secondary to advanced Parkinson d isease and dementia Is no need for IV hydration, or any intervention at this point Continue home meds (3) Prolonged Q-T interval on ECG Status: Resolved Problem Text: 10/26 reassess QTC on olanz (4) Left lower lobe pneumonia Status: Acute Response to Treatment: Stable Problem Text: cough noted, cxr showed LLL infiltrate. He has no fever, HR is slightly increased but he is actively moving at this time. Not hypoxic. Will treat this initially as CAH since I believe Pseudomonas is unlikely. Will screen for MRSA. Doubt that sputum can be obtained due to dementia. No fever, so blood cultures were not sent. If condition worsens then intensify approach (as for HAP). He has documented prolongation of QTc so avoid macrolides, fluorquino lones. Reported PCN allergy is believed to be very low probability to cross react with 3rd gen cephalosporin. Plan/VTE VTE Prophylaxis Ordered?: Yes Plan Anticipated Discharge: Long Term VS, I&O, 24H, Fishbone Vital Signs/I&O Vital Signs Date Time Temp Pulse Resp B/P (MAP) Pulse Ox O2 Delivery O2 Flow Rate FiO2 11/05/18 06:00 97.7 106 18 129/93 (105) 100 I&O- Last 24 Hours up to 6 AM 11/05/18 06:00 Intake Total 120 ml Balance 120 ml Anoop Nguyen MD Nov 05, 2018 09:15
[2018-11-05] MEDS: CEFDINIR 250 MG/5 ML 60ML SUSP BTL PO SCH ×2 (10:35→20:14)
[2018-11-05] MEDS: DOCUSATE SOD LIQ 100MG/10ML UDC PO SCH ×2 (10:35→20:13)
[2018-11-05] MEDS: DIVALPROEX SPRINKLE 125 MG CAP PO SCH (10:40)
[2018-11-05] MEDS: CLOPIDOGREL 75 MG TAB PO SCH (10:50)
[2018-11-05] MEDS: POTASSIUM CHLORIDE 10 MEQ SR TABLET PO SCH (10:50)
[2018-11-05] MEDS: HEPARIN SOD (PORCINE) 5000 UNITS/ML VIAL SC SCH ×2 (10:51→20:13)
[2018-11-05] MEDS: POLYVINYL ALCOHOL OPHTH SOLN 15 ML(LIQUITEARS) OU PRN (13:27)
[2018-11-05 14:00] VITALS: BP 122/83
[2018-11-05] MEDS: OLANZapine 2.5MG TABLET PO SCH (16:40)
[2018-11-05] MEDS: ATORVASTATIN 20 MG TAB PO SCH (20:14)
[2018-11-06] MEDS: DOCUSATE SOD LIQ 100MG/10ML UDC PO SCH ×2 (08:43→21:35)
[2018-11-06] MEDS: POTASSIUM CHLORIDE 10 MEQ SR TABLET PO SCH (08:43)
[2018-11-06] MEDS: HEPARIN SOD (PORCINE) 5000 UNITS/ML VIAL SC SCH ×2 (09:09→21:35)
[2018-11-06] MEDS: CLOPIDOGREL 75 MG TAB PO SCH (09:09)
[2018-11-06] MEDS: CEFDINIR 250 MG/5 ML 60ML SUSP BTL PO SCH ×2 (09:10→21:35)
[2018-11-06] MEDS: DIVALPROEX SPRINKLE 125 MG CAP PO SCH (09:10)
[2018-11-06] MEDS: OLANZapine 2.5MG TABLET PO SCH (15:55)
[2018-11-06] MEDS: POLYVINYL ALCOHOL OPHTH SOLN 15 ML(LIQUITEARS) OU PRN (18:19)
[2018-11-06] MEDS ORDERED: D5W/0.9% SODIUM CHLORIDE 1,000 ML IV SCH (20:15)
--- NOTE | 2018-11-06 20:16 | IPNPDOC ---
Subjective Date Seen The patient was seen on 11/06/18. Subjective Chief Complaint/HPI not eating or drinking General: Reports: ROS Unobtainable Objective Physical Examination General Exam: Positive: No Acute Distress; Negative: Alert Neck Exam: Positive: Supple Chest Exam: Positive: Clear to auscultation, Normal air movement, Rhonchi (left) Heart Exam: Positive: Rate Normal, Normal S1, Normal S2 Abdomen Exam: Positive: Normal bowel sounds Extremity Exam: Negative: Edema Skin Exam: Positive: Nl turgor and temperature Neuro Exam: Positive: Other (t) Assessment /Plan Problems (1) Lewy body dementia Problem Text: 11/06 dose reduction so far has not improved alertness enough for him to be able to take po. if he remains effectively NPO through the day then will start IV fluids. Labs ordered for am. Had discussion re Feeding Tube and family present agree that this intervention would not be desirable or appropria te. 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 11/05: discussion yesterday with family RE current meds, requesting de-escalate meds to try to see if he will be more responsive and improve po intake. 11/01/18: Nursing expressed concerns over some increased behaviors. Depakote was added to current regimen. We are going to reduce Haldol dose to 2mg prn 10/26/2018: Spoke with Dr. Guan: he recommends continuing with Anti-psychoti cs for behaviors. Sinemet will only help with tremors and has autonomic side effects. HOLD on Sinemet. Consider psychiatry eval if unable to manage behaviors. 10/25 increased to 2.5 at 6, 5 at 16 (given agitation increases ~16); long dw /family that doubtful patient will be stable enough to dc back to home c ; + PT eval 10/22 changed to olanz 2.5 BID 10/21 risper 0.25 BID not tolerated sitter at bedside for patient safety. quet 25 BID held on admission 2 prolonged QTC avoid benzodiazepines in patients with Lewy Body dementia, for it will worsen their hallucinations. (2) Orthostasis Status: Resolved Problem Text: Most likely autonomic in nature secondary to advanced Parkinson disease and dementia Is no need for IV hydration, or any intervention at this point Continue home meds (3) Prolonged Q-T interval on ECG Status: Resolved Problem Text: 10/26 reassess QTC on olanz (4) Left lower lobe pneumonia Status: Acute Response to Treatment: Stable Problem Text: 11/06: VSS, normal sats, no fever, continues to cough. but not worsening cough noted, cxr showed LLL infiltrate. He has no fever, HR is slightly increased but he is actively moving at this time. Not hypoxic. Will treat this initially as CAH since I believe Pseudomonas is unlikely. Will screen for MRSA. Doubt that sputum can be obtained due to dementia. No fever, so blood cultures were not sent. If condition worsens then intensify approach (as for HAP). He has documented prolongation of QTc so avoid macrolides, fluorquinolones. Reported PCN allergy is believed to be very low probability to cross react with 3rd gen cephalosporin. Plan/VTE VTE Prophylaxis Ordered?: Yes Plan Anticipated Discharge: [facility] VS, I&O, 24H, Fishbone Vital Signs/I&O Vital Signs Date Time Temp Pulse Resp B/P (MAP) Pulse Ox O2 Delivery O2 Flow Rate FiO2 11/05/18 14:00 98.3 103 18 122/83 (96) 95 I&O- Last 24 Hours up to 6 AM 11/06/18 06:00 Intake Total 0 ml Output Total 0 ml Balance 0 ml Anoop Nguyen MD Nov 06, 2018 20:16
[2018-11-06] MEDS: ATORVASTATIN 20 MG TAB PO SCH (21:35)
[2018-11-07 05:18] LABS: HEMATOCRIT 47.2 % (42.0-52.0); MEAN CORPUSCULAR HGB CONC 31.8 g/dl (32.0-36.5); MEAN CORPUSCULAR VOLUME 97.5 fl (80.0-96.0); PLATELET COUNT, AUTOMATED 264 10^3/uL (150-450); RED BLOOD COUNT 4.84 10^6/uL (4.30-6.10); WHITE BLOOD COUNT 10.1 10^3/uL (4.0-10.0)
[2018-11-07 05:34] LABS: CALCIUM LEVEL 9.4 MG/DL (8.8-10.2); CREATININE FOR GFR 1.47 MG/DL (0.70-1.30); GLOMERULAR FILTRATION RATE 49.5 (>42); POTASSIUM SERUM 3.8 MEQ/L (3.5-5.1)
[2018-11-07 06:00] VITALS: BP 144/98
[2018-11-07] MEDS: D5W/0.45% SODIUM CHLORIDE 1,000 ML IV SCH ×2 (06:09→16:14)
[2018-11-07] MEDS: CLOPIDOGREL 75 MG TAB PO SCH (08:12)
[2018-11-07] MEDS: ACETAMINOPHEN TAB 650MG DOSE (2X325MG) PO PRN (08:12)
[2018-11-07] MEDS: DOCUSATE SOD LIQ 100MG/10ML UDC PO SCH ×2 (08:12→20:41)
[2018-11-07] MEDS: DIVALPROEX SPRINKLE 125 MG CAP PO SCH (08:13)
[2018-11-07] MEDS: POTASSIUM CHLORIDE 10 MEQ SR TABLET PO SCH (08:13)
[2018-11-07] MEDS: HEPARIN SOD (PORCINE) 5000 UNITS/ML VIAL SC SCH ×2 (08:13→20:40)
[2018-11-07] MEDS: CEFDINIR 250 MG/5 ML 60ML SUSP BTL PO SCH ×2 (08:14→20:40)
--- NOTE | 2018-11-07 09:06 | IPNPDOC ---
Subjective Date Seen The patient was seen on 11/07/18. Subjective Chief Complaint/HPI parkinson's dementia Events since last encounter patient has had poor po intake with resultant ASHLEY and hypernatremia. has been started on Fluids replacement. Also now with a pneumonia noted on CXR to LLL on 11/04/2018. Was placed on Cefdinir 300 mg po bid. Has remained afebrile and non- oxygen requiring General: Reports: ROS Unobtainable Objective Physical Examination General Exam: Positive: No Acute Distress; Negative: Alert Neck Exam: Positive: Supple Chest Exam: Positive: Clear to auscultation, Normal air movement, Rhonchi (left) Heart Exam: Positive: Rate Normal, Normal S1, Normal S2 Abdomen Exam: Positive: Normal bowel sounds Extremity Exam: Negative: Edema Skin Exam: Positive: Nl turgor and temperature Neuro Exam: Positive: Other (eyes closed, fidgeting with blanket. cooperative with exam. non-verbal) Assessment /Plan Problems (1) Oropharyngeal dysphagia Status: Chronic Response to Treatment: Stable Problem Text: 11/07 MBS recommends pureed (2) ASHLEY (acute kidney injury) Status: Acute Problem Text: 2 dehydration c hyperNa/Cl 11/07 69/1.4 Na 161 11/06 +D51/2NS 100H baseline cr 0.9/Na 144 (3) Hypernatremia Status: Acute Problem Text: 2 dehydration-as per ASHLEY (4) Left lower lobe pneumonia Status: Acute Response to Treatment: Stable Problem Text: D3/10 cefdinir 11/07 WBC 10.1 (7/25 5.1) and CXR c slightly increased LLL opacity, but AF, s obvious dyspnea and 99% RA given ho prolonged QTc-FQ not used (5) Lewy body dementia Problem Text: 11/07/2018:Now with hypernatremia and ASHLEY due to poor po intake. Will transition to acute status today. 11/06 dose reduction so far has not improved alertness enough for him to be able to take po. if he remains effectively NPO through the day then will start IV fluids. Labs ordered for am. Had discussion re Feeding Tube and family present agree that this intervention would not be desirable or appropriate. If rehydration and reduction of sedation burden does not improve po intake consideration should be taken for PROCESS STRIPPER status. 11/05: discussion yesterday with family RE current meds, requesting de-escalate meds to try to see if he will be more responsive and improve po intake. 11/01/18: Nursing expressed concerns over some increased behaviors. Depakote was added to current regimen. We are going to reduce Haldol dose to 2mg prn 10/26/2018: Spoke with Dr. Guan: he recommends continuing with Anti- psychotics for behaviors. Sinemet will only help with tremors and has autonomic side effects. HOLD on Sinemet. Consider psychiatry eval if unable to manage behaviors. 10/25 increased to 2.5 at 6, 5 at 16 (given agitation increases ~16); long dw /family that doubtful patient will be stable enough to dc back to home c ; + PT eval 10/22 changed to olanz 2.5 BID 10/21 risper 0.25 BID not tolerated sitter at bedside for patient safety. quet 25 BID held on admission 2 prolonged QTC avoid benzodiazepines in patients with Lewy Body dementia, for it will worsen their hallucinations. (6) Orthostasis Status: Resolved Problem Text: Most likely autonomic in nature secondary to advanced Parkinson disease and dementia Is no need for IV hydration, or any intervention at this point Continue home meds (7) Prolonged Q-T interval on ECG Status: Resolved (8) Physical deconditioning Status: Chronic Problem Text: 11/07 long dw daughter Lola Garcia at bedside ([phone])-she would like to transition px home if he stabilizes from current PN/ASHLEY (multiple family members in health-care field who could redirect px rather than sedate if agitated) [phone] Plan/VTE VTE Prophylaxis Ordered?: Yes Plan Anticipated Discharge: Skilled Nursing VS, I&O, 24H, [facility] Vital Signs/I&O Vital Signs Date Time Temp Pulse Resp B/P (MAP) Pulse Ox O2 Delivery O2 Flow Rate FiO2 11/07/18 06:00 97.3 81 20 144/98 (113) 95 I&O- Last 24 Hours up to 6 AM 11/07/18 06:00 Intake Total 560 ml Balance 560 ml Laboratory Data 24H LABS Laboratory Tests 2 11/07/18 04:40: Nucleated Red Blood Cells % (auto) 0.0, Anion Gap 4L, Glomerular Filtration Rate 49.5, Blood Urea Nitrogen 71H, Creatinine 1.47H, Sodium Level 162*H, Potassium Level 3.8, Chloride Level 129H, Carbon Dioxide Level 29, Calcium Level 9.4 CBC/BMP Laboratory Tests 11/07/18 04:40 Red Blood Count 4.84, Mean Corpuscular Volume 97.5 H, Mean Corpuscular Hemo globin 31.0, Mean Corpuscular Hemoglobin Concent 31.8 L, Red Cell Distribution Width 14.5, Calcium Level 9.4 Le Perez Nov 07, 2018 09:06 Thai Sheridan M.D. Nov 07, 2018 17:49
[2018-11-07 11:40] LABS: CALCIUM LEVEL 9.8 MG/DL (8.8-10.2); CREATININE FOR GFR 1.38 MG/DL (0.70-1.30); GLOMERULAR FILTRATION RATE 53.2 (>42); POTASSIUM SERUM 3.6 MEQ/L (3.5-5.1)
[2018-11-07 14:19] VITALS: BP 148/98
--- NOTE | 2018-11-07 14:56 | REP ---
REASON FOR EXAM: Followup patchy opacity in the left lower lobe. COMPARISON: 11/04/2018. The left lower lobe patchy opacity has increased in density. There are no other significant changes. IMPRESSION: Increased left lower lobe opacity. Followup is recommended. Electronically Signed by Demarcus Hawkins DO 11/07/2018 03:15 P
[2018-11-07] MEDS: ATORVASTATIN 20 MG TAB PO SCH ×2 (20:41→20:45)
[2018-11-07] MEDS: POLYVINYL ALCOHOL OPHTH SOLN 15 ML(LIQUITEARS) OU SCH (20:41)
[2018-11-07 22:00] VITALS: BP 148/80
[2018-11-08] MEDS: D5W/0.45% SODIUM CHLORIDE 1,000 ML IV SCH (03:12)
[2018-11-08 05:54] LABS: BASO % 0.2 % (0.0-1.0); EOS % 0.3 % (0.0-3.0); HEMATOCRIT 42.4 % (42.0-52.0); HEMOGLOBIN 13.3 g/dl (13.5-17.5); LYMPH # 1.3 10^3/uL (1.5-4.5); LYMPH % 15.2 % (24.0-44.0); MEAN CORPUSCULAR HEMOGLOBIN 30.7 pg (27.0-33.0); MEAN CORPUSCULAR HGB CONC 31.4 g/dl (32.0-36.5); MEAN CORPUSCULAR VOLUME 97.9 fl (80.0-96.0); MONO # 0.8 10^3/uL (0.0-0.8); MONO % 9.1 % (0.0-5.0); NEUTROPHILS # 6.6 10^3/uL (1.8-7.7); NEUTROPHILS % 74.5 % (36.0-66.0); PLATELET COUNT, AUTOMATED 245 10^3/uL (150-450); RED BLOOD COUNT 4.33 10^6/uL (4.30-6.10); WHITE BLOOD COUNT 8.8 10^3/uL (4.0-10.0)
[2018-11-08 06:00] VITALS: BP 133/80
[2018-11-08 06:22] LABS: ALBUMIN 2.9 GM/DL (3.2-5.2); BILIRUBIN,TOTAL 0.7 MG/DL (0.2-1.0); CALCIUM LEVEL 9.3 MG/DL (8.8-10.2); CREATININE FOR GFR 1.29 MG/DL (0.70-1.30); GLOMERULAR FILTRATION RATE 57.5 (>42); POTASSIUM SERUM 3.5 MEQ/L (3.5-5.1); TOTAL PROTEIN 6.5 GM/DL (6.4-8.2)
[2018-11-08] MEDS: DOCUSATE SOD LIQ 100MG/10ML UDC PO SCH ×2 (08:52→20:53)
[2018-11-08] MEDS: CLOPIDOGREL 75 MG TAB PO SCH (08:52)
[2018-11-08] MEDS: DIVALPROEX SPRINKLE 125 MG CAP PO SCH (08:52)
[2018-11-08] MEDS: CEFDINIR 250 MG/5 ML 60ML SUSP BTL PO SCH (08:53)
[2018-11-08] MEDS: POLYVINYL ALCOHOL OPHTH SOLN 15 ML(LIQUITEARS) OU SCH ×4 (08:53→21:01)
[2018-11-08] MEDS: POTASSIUM CHLORIDE 10 MEQ SR TABLET PO SCH (08:53)
[2018-11-08] MEDS: HEPARIN SOD (PORCINE) 5000 UNITS/ML VIAL SC SCH ×2 (08:53→21:01)
--- NOTE | 2018-11-08 09:15 | IPNPDOC ---
Subjective Date Seen The patient was seen on 11/08/18. Subjective Chief Complaint/HPI QT prolongation, dementia Events since last encounter s/p swallow eval yesterday: recommended pureed diet with honey thick liquids. Patient witnessed pocketing in mouth and needs significant cueing to swallow. General: Reports: ROS Unobtainable Objective Physical Examination General Exam: Positive: No Acute Distress; Negative: Alert Neck Exam: Positive: Supple Chest Exam: Positive: Normal air movement, Diminished (LLL) Heart Exam: Positive: Rate Normal, Normal S1, Normal S2 Abdomen Exam: Positive: Normal bowel sounds Extremity Exam: Negative: Edema Skin Exam: Positive: Nl turgor and temperature Neuro Exam: Positive: Other (eyes closed, fidgeting with blanket. cooperative with exam. non-verbal) Assessment /Plan Problems (1) Oropharyngeal dysphagia Status: Chronic Response to Treatment: Stable Problem Text: 11/08/18: bedside ST evaluation recommends NPO-dced meds or changed to IV (2) ASHLEY (acute kidney injury) Status: Acute Problem Text: 2 dehydration c hyperNa/Cl 11/08 1.3 improving c hydration 11/07 69/1.4 Na 161 11/06 +D51/2NS 100H baseline cr 0.9/Na 144 (3) Hypernatremia Status: Acute Problem Text: 11/08/18:Na 161 (161)-favor persistent free water deficit-IVF changed to D5W with 0.25 NS. Na 161 today. 2 dehydration-as per ASHLEY (4) Left lower lobe pneumonia Status: Acute Response to Treatment: Stable Problem Text: D4/10 cefdinir poor cough reflex 11/08 8.8, AF 11/07 WBC 10.1 (10/27 5.1) and CXR c slightly increased LLL opacity, but AF, s obvious dyspnea and 99% RA given ho prolonged QTc-FQ not used (5) Lewy body dementia Problem Text: 11/07/2018:Now with hypernatremia and ASHLEY due to poor po intake. W ill transition to acute status today. 11/06 dose reduction so far has not improved alertness enough for him to be able to take po. if he remains effectively NPO through the day then will start IV fl uids. Labs ordered for am. Had discussion re Feeding Tube and family present agree that this intervention would not be desirable or appropriate. 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 11/05: discussion yesterday with family RE current meds, requesting de-escalate meds to try to see if he will be more responsive and improve po intake. 11/01/18: Nursing expressed concerns over some increased behaviors. Depakote was added to current regimen. We are going to reduce Haldol dose to 2mg prn 10/26/2018: Spoke with Dr. Guan: he recommends continuing with Anti- psychotics for behaviors. Sinemet will only help with tremors and has autonomic side effects. HOLD on Sinemet. Consider psychiatry eval if unable to manage behaviors. 10/25 increased to 2.5 at 6, 5 at 16 (given agitation increases ~16); long dw /family that doubtful patient will be stable enough to dc back to home c ; + PT eval 10/22 changed to olanz 2.5 BID 10/21 risper 0.25 BID not tolerated sitter at bedside for patient safety. quet 25 BID held on admission 2 prolonged QTC avoid benzodiazepines in patients with Lewy Body dementia, for it will worsen their hallucinations. (6) Orthostasis Status: Resolved Problem Text: Most likely autonomic in nature secondary to advanced Parkinson disease and dementia Is no need for IV hydration, or any intervention at this point Continue home meds (7) Prolonged Q-T interval on ECG Status: Resolved (8) Physical deconditioning Status: Chronic Problem Text: 11/08 advised if no improvement by 11/10-11/11, would strongly consider BUS TRANSPORTATION MANAGER 11/07 long dw daughter Lola Garcia at bedside ([phone])-she would like to transition px home if he stabilizes from current PN/ASHLEY (multiple family members in health-care field who could redirect px rather than sedate if agitated) [phone] Plan/VTE VTE Prophylaxis Ordered?: Yes Plan Anticipated Discharge: Residential VS, I&O, 24H, Fishbone Vital Signs/I&O Vital Signs Date Time Temp Pulse Resp B/P (MAP) Pulse Ox O2 Delivery O2 Flow Rate FiO2 11/08/18 06:00 98.1 63 16 133/80 (97) 99 I&O- Last 24 Hours up to 6 AM 11/08/18 06:00 Intake Total 1480 ml Balance 1480 ml Laboratory Data 24H LABS Laboratory Tests 2 11/07/18 11:06: Anion Gap 4L, Glomerular Filtration Rate 53.2, Blood Urea Nitrogen 69H, Creatinine 1.38H, Sodium Level 161*H, Potassium Level 3.6, Chloride Level 129H, Carbon Dioxide Level 28, Calcium Level 9.8 11/08/18 05:30: Anion Gap 2L, Glomerular Filtration Rate 57.5, Blood Urea Nitrogen 57H, Creatinine 1.29, Sodium Level 161*H, Potassium Level 3.5, Chloride Level 128H, Carbon Dioxide Level 31, Calcium Level 9.3, Immature Granulocyte % (Auto) 0.7, White Blood Count 8.8, Red Blood Count 4.33, Hemoglobin 13.3L, Hematocrit 42.4, Mean Corpuscular Volume 97.9H, Mean Corpuscular Hemoglobin 30.7, Mean Corpuscular Hemoglobin Concent 31.4L, Red Cell Distribution Width 14.1, Platelet Count 245, Neutrophils (%) (Auto) 74.5H, Lymphocytes (%) (Auto) 15.2L, Monocytes (%) (Auto) 9.1H, Eosinophils (%) (Auto) 0.3, Basophils (%) (Auto) 0.2, Neutrophils # (Auto) 6.6, Lymphocytes # (Auto) 1.3L, Monocytes # (Auto) 0.8, Eosinophils # (Auto) 0.0, Basophils # (Auto) 0.0, Nucleated Red Blood Cells % (a uto) 0.0, Aspartate Amino Transf (AST/SGOT) 21, Alanine Aminotransferase (ALT/SGPT) 20, Alkaline Phosphatase 78, Total Bilirubin 0.7, Total Protein 6.5, Albumin 2.9L, Albumin/Globulin Ratio 0.81L CBC/BMP Laboratory Tests 11/07/18 11:06 Calcium Level 9.8 11/08/18 05:30 Calcium Level 9.3, Red Blood Count 4.33, Mean Corpuscular Volume 97.9 H, Mean Corpuscular Hemoglobin 30.7, Mean Corpuscular Hemoglobin Concent 31.4 L, Red Cell Distribution Width 14.1, Neutrophils (%) (Auto) 74.5 H, Lymphocytes (%) (Auto) 15.2 L, Monocytes (%) (Auto) 9.1 H, Eosinophils (%) (Auto) 0.3, Basophils (%) (Auto) 0.2, Neutrophils # (Auto) 6.6, Lymphocytes # (Auto) 1.3 L, Monocytes # (Auto) 0.8, Eosinophils # (Auto) 0.0, Basophils # (Auto) 0.0, Aspartate Amino Transf (AST/SGOT) 21, Alanine Aminotransferase (ALT/SGPT) 20, Alkaline Phosphatase 78, Total Bilirubin 0.7, Total Protein 6.5, Albumin 2.9 L Le Perez Nov 08, 2018 09:15 Thai Sheridan M.D. Nov 08, 2018 17:33
[2018-11-08] MEDS: D5W/0.2% SODIUM CHLORIDE 1,000 ML IV SCH ×2 (10:12→20:54)
[2018-11-08] MEDS: cefTRIAXone SOD 1 GM in D5W MINI-BAG PLUS 50 ML IV SCH (18:24)
[2018-11-08 18:28] LABS: BLOOD UREA NITROGEN 46 MG/DL (7-18); CALCIUM LEVEL 8.9 MG/DL (8.8-10.2); CARBON DIOXIDE LEVEL 30 MEQ/L (21-32); CHLORIDE LEVEL 130 MEQ/L (98-107); CREATININE FOR GFR 1.15 MG/DL (0.70-1.30); GLOMERULAR FILTRATION RATE > 60.0 (>42); GLUCOSE, FASTING 110 MG/DL (70-100); SODIUM LEVEL 163 MEQ/L (136-145)
[2018-11-08 18:29] LABS: ALBUMIN 2.8 GM/DL (3.2-5.2); PHOSPHORUS LEVEL 3.2 MG/DL (2.5-4.9)
[2018-11-08] MEDS: ATORVASTATIN 20 MG TAB PO SCH (20:53)
[2018-11-09] MEDS: D5W/0.2% SODIUM CHLORIDE 1,000 ML IV SCH ×3 (03:08→18:36)
[2018-11-09 06:19] LABS: BASO % 0.1 % (0.0-1.0); EOS # 0.1 10^3/uL (0.0-0.50); EOS % 1.1 % (0.0-3.0); HEMATOCRIT 40.8 % (42.0-52.0); HEMOGLOBIN 12.6 g/dl (13.5-17.5); LYMPH # 1.5 10^3/uL (1.5-4.5); LYMPH % 20.2 % (24.0-44.0); MEAN CORPUSCULAR HEMOGLOBIN 30.6 pg (27.0-33.0); MEAN CORPUSCULAR HGB CONC 30.9 g/dl (32.0-36.5); MONO # 0.6 10^3/uL (0.0-0.8); MONO % 8.2 % (0.0-5.0); NEUTROPHILS # 5.1 10^3/uL (1.8-7.7); NEUTROPHILS % 69.4 % (36.0-66.0); PLATELET COUNT, AUTOMATED 233 10^3/uL (150-450); RED BLOOD COUNT 4.12 10^6/uL (4.30-6.10); WHITE BLOOD COUNT 7.3 10^3/uL (4.0-10.0)
[2018-11-09 06:43] LABS: ALBUMIN 2.6 GM/DL (3.2-5.2); ALT/SGPT 19 U/L (12-78); BILIRUBIN,TOTAL 0.6 MG/DL (0.2-1.0); BLOOD UREA NITROGEN 39 MG/DL (7-18); CALCIUM LEVEL 8.8 MG/DL (8.8-10.2); CARBON DIOXIDE LEVEL 30 MEQ/L (21-32); CHLORIDE LEVEL 125 MEQ/L (98-107); CREATININE FOR GFR 1.07 MG/DL (0.70-1.30); GLOMERULAR FILTRATION RATE > 60.0 (>42); GLUCOSE, FASTING 113 MG/DL (70-100); POTASSIUM SERUM 3.6 MEQ/L (3.5-5.1); SODIUM LEVEL 159 MEQ/L (136-145)
--- NOTE | 2018-11-09 08:40 | IPNPDOC ---
Subjective Date Seen The patient was seen on 11/09/18. Subjective Chief Complaint/HPI dementia Events since last encounter Mild improvement in sodium levels with IV hydration. patient failed repeat swallow evals and is now NPO. Daughter is at bedside and is unsure of proceeding with Peg tube. General: Reports: ROS Unobtainable Objective Physical Examination General Exam: Positive: No Acute Distress; Negative: Alert Neck Exam: Positive: Supple Chest Exam: Positive: Normal air movement, Diminished (LLL) Heart Exam: Positive: Rate Normal, Normal S1, Normal S2 Abdomen Exam: Positive: Normal bowel sounds Extremity Exam: Negative: Edema Skin Exam: Positive: Nl turgor and temperature Neuro Exam: Positive: Other (non-verbal, minimal reposnse to tactile stimulation. no response to verbal stim. ) Assessment /Plan Problems (1) Oropharyngeal dysphagia Status: Chronic Response to Treatment: Stable Problem Text: 11/08/18: bedside ST evaluation recommends NPO-dced meds or changed to IV (2) ASHLEY (acute kidney injury) Status: Acute Problem Text: 2 dehydration c hyperNa/Cl 11/08 1.3 improving c hydration 11/07 69/1.4 Na 161 11/06 +D51/2NS 100H baseline cr 0.9/Na 144 (3) Hypernatremia Status: Acute Problem Text: 11/08/18:Na 161 (161)-favor persistent free water deficit-IVF changed to D5W with 0.25 NS. Na 161 today. 2 dehydration-as per ASHLEY (4) Left lower lobe pneumonia Status: Acute Response to Treatment: Stable Problem Text: D4/10 cefdinir poor cough reflex 11/08 8.8, AF 11/07 WBC 10.1 (10/27 5.1) and CXR c slightly increased LLL opacity, but AF, s o bvious dyspnea and 99% RA given ho prolonged QTc-FQ not used (5) Lewy body dementia Problem Text: 11/07/2018:Now with hypernatremia and ASHLEY due to poor po intake. Will transition to acute status today. 11/06 dose reduction so far has not improved alertness enough for him to be able to take po. if he remains effectively NPO through the day then will start IV fluids. Labs ordered for am. Had discussion re Feeding Tube and family present agree that this intervention would not be desirable or appropriate. If rehydration and reduction of sedation burden does not improve po intake consideration should be taken for DIVING JUDGE status. 11/05: discussion yesterday with family RE current meds, requesting de-escalate meds to try to see if he will be more responsive and improve po intake. 11/01/18: Nursing expressed concerns over some increased behaviors. Depakote was added to current regimen. We are going to reduce Haldol dose to 2mg prn 10/26/2018: Spoke with Dr. Guan: he recommends continuing with Anti- psychotics for behaviors. Sinemet will only help with tremors and has autonomic side effects. HOLD on Sinemet. Consider psychiatry eval if unable to manage behaviors. 10/25 increased to 2.5 at 6, 5 at 16 (given agitation increases ~16); long dw /family that doubtful patient will be stable enough to dc back to home c ; + PT eval 10/22 changed to olanz 2.5 BID 10/21 risper 0.25 BID not tolerated sitter at bedside for patient safety. quet 25 BID held on admission 2 prolonged QTC avoid benzodiazepines in patients with Lewy Body dementia, for it will worsen their hallucinations. (6) Orthostasis Status: Resolved Problem Text: Most likely autonomic in nature secondary to advanced Parkinson disease and dementia Is no need for IV hydration, or any intervention at this point Continue home meds (7) Prolonged Q-T interval on ECG Status: Resolved (8) Physical deconditioning Status: Chronic Problem Text: 11/08 advised if no improvement by 11/10-11/11, would strongly consider DIVING JUDGE 11/07 long dw daughter Lola Garcia at bedside ([phone])-she would like to transition px home if he stabilizes from current PN/ASHLEY (multiple family members in health-care field who could redirect px rather than sedate if agitated) [phone] Plan/VTE VTE Prophylaxis Ordered?: Yes Plan Anticipated Discharge: Care Home Disposition poor prognosis reviewed with daughter at bedside. She plans on bringing in family and patient's to come to a decision regarding disposition. Reviewed with attending physician Dr. Nguyen. VS, I&O, 24H, Fishbone Vital Signs/I&O Vital Signs Date Time Temp Pulse Resp B/P (MAP) Pulse Ox O2 Delivery O2 Flow Rate FiO2 11/08/18 14:00 97.5 86 19 97 11/08/18 06:00 133/80 (97) I&O- Last 24 Hours up to 6 AM 11/09/18 06:00 Intake Total 3150 ml Output Total 0 ml Balance 3150 ml Laboratory Data 24H LABS Laboratory Tests 2 11/08/18 17:49: Blood Urea Nitrogen 46H, Creatinine 1.15, Sodium Level 163*H, Potassium Level 4.0, Chloride Level 130H, Carbon Dioxide Level 30, Anion Gap 3L, Glomerular Filtration Rate > 60.0, Calcium Level 8.9, Phosphorus Level 3.2, Albumin 2.8L 11/09/18 05:42: Blood Urea Nitrogen 39H, Creatinine 1.07, Sodium Level 159H, Potassium Level 3.6, Chloride Level 125H, Carbon Dioxide Level 30, Anion Gap 4L, Glomerular Filt ration Rate > 60.0, Calcium Level 8.8, Albumin 2.6L, Immature Granulocyte % (Auto) 1.0, White Blood Count 7.3, Red Blood Count 4.12L, Hemoglobin 12.6L, Hematocrit 40.8L, Mean Corpuscular Volume 99.0H, Mean Corpuscular Hemoglobin 30.6, Mean Corpuscular Hemoglobin Concent 30.9L, Red Cell Distribution Width 14.0, Platelet Count 233, Neutrophils (%) (Auto) 69.4H, Lymphocytes (%) (Auto) 20.2L, Monocytes (%) (Auto) 8.2H, Eosinophils (%) (Auto) 1.1, Basophils (%) (Auto) 0.1, Neutrophils # (Auto) 5.1, Lymphocytes # (Auto) 1.5, Monocytes # (Auto) 0.6, Eosinophils # (Auto) 0.1, Basophils # (Auto) 0.0, Nucleated Red Blood Cells % (auto) 0.0, Aspartate Amino Transf (AST/SGOT) 22, Alanine Aminotransferase (ALT/SGPT) 19, Alkaline Phosphatase 69, Total Bilirubin 0.6, Total Protein 6.0L, Albumin/Globulin Ratio 0.76L CBC/BMP Laboratory Tests 11/08/18 17:49 Anion Gap 3 L 11/09/18 05:42 Red Blood Count 4.12 L, Mean Corpuscular Volume 99.0 H, Mean Corpuscular Hem oglobin 30.6, Mean Corpuscular Hemoglobin Concent 30.9 L, Red Cell Distribution Width 14.0, Neutrophils (%) (Auto) 69.4 H, Lymphocytes (%) (Auto) 20.2 L, Monocytes (%) (Auto) 8.2 H, Eosinophils (%) (Auto) 1.1, Basophils (%) (Auto) 0.1, Neutrophils # (Auto) 5.1, Lymphocytes # (Auto) 1.5, Monocytes # (Auto) 0.6, Eosinophils # (Auto) 0.1, Basophils # (Auto) 0.0, Calcium Level 8.8, Aspartate Amino Transf (AST/SGOT) 22, Alanine Aminotransferase (ALT/SGPT) 19, Alkaline Phosphatase 69, Total Bilirubin 0.6, Total Protein 6.0 L, Albumin 2.6 L Attending Note Attending Note Long discussion with son, daughter, and regarding his condition. Considering his rapidly progressive dementia, DNR/DNI, no tube feeding would be reasonable, as would DIVING JUDGE status. They wish to ponder this further and include 2 other children in the decision process before committing. Le Perez Nov 09, 2018 08:40 Anoop Nguyen MD Nov 09, 2018 13:08
[2018-11-09] MEDS: DOCUSATE SOD LIQ 100MG/10ML UDC PO SCH ×2 (09:00→21:00)
[2018-11-09] MEDS: DIVALPROEX SPRINKLE 125 MG CAP PO SCH (09:00)
[2018-11-09] MEDS: CLOPIDOGREL 75 MG TAB PO SCH (09:00)
[2018-11-09] MEDS: POTASSIUM CHLORIDE 10 MEQ SR TABLET PO SCH (09:00)
[2018-11-09] MEDS: HEPARIN SOD (PORCINE) 5000 UNITS/ML VIAL SC SCH ×2 (09:42→21:14)
[2018-11-09] MEDS: POLYVINYL ALCOHOL OPHTH SOLN 15 ML(LIQUITEARS) OU SCH ×4 (09:43→21:00)
[2018-11-09] MEDS: cefTRIAXone SOD 1 GM in D5W MINI-BAG PLUS 50 ML IV SCH (17:52)
[2018-11-09] MEDS: ATORVASTATIN 20 MG TAB PO SCH (21:00)
[2018-11-09] MEDS: POLYVINYL ALCOHOL OPHTH SOLN 15 ML(LIQUITEARS) OU PRN (21:13)
[2018-11-10] MEDS: D5W/0.2% SODIUM CHLORIDE 1,000 ML IV SCH ×4 (01:26→17:35)
[2018-11-10 06:00] VITALS: BP 145/76
[2018-11-10 06:29] LABS: BASO % 0.2 % (0.0-1.0); EOS # 0.1 10^3/uL (0.0-0.50); EOS % 2.2 % (0.0-3.0); HEMATOCRIT 36.4 % (42.0-52.0); HEMOGLOBIN 11.7 g/dl (13.5-17.5); LYMPH # 1.5 10^3/uL (1.5-4.5); LYMPH % 28.5 % (24.0-44.0); MEAN CORPUSCULAR HGB CONC 32.1 g/dl (32.0-36.5); MEAN CORPUSCULAR VOLUME 96.3 fl (80.0-96.0); MONO # 0.5 10^3/uL (0.0-0.8); MONO % 8.9 % (0.0-5.0); NEUTROPHILS # 3.2 10^3/uL (1.8-7.7); NEUTROPHILS % 58.9 % (36.0-66.0); PLATELET COUNT, AUTOMATED 201 10^3/uL (150-450); RED BLOOD COUNT 3.78 10^6/uL (4.30-6.10); WHITE BLOOD COUNT 5.4 10^3/uL (4.0-10.0)
[2018-11-10 06:50] LABS: ALBUMIN 2.4 GM/DL (3.2-5.2); ALT/SGPT 17 U/L (12-78); BILIRUBIN,TOTAL 0.5 MG/DL (0.2-1.0); BLOOD UREA NITROGEN 28 MG/DL (7-18); CALCIUM LEVEL 8.1 MG/DL (8.8-10.2); CARBON DIOXIDE LEVEL 27 MEQ/L (21-32); CHLORIDE LEVEL 119 MEQ/L (98-107); GLOMERULAR FILTRATION RATE > 60.0 (>42); GLUCOSE, FASTING 115 MG/DL (70-100); POTASSIUM SERUM 3.3 MEQ/L (3.5-5.1); SODIUM LEVEL 151 MEQ/L (136-145); TOTAL PROTEIN 5.3 GM/DL (6.4-8.2)
[2018-11-10] MEDS ORDERED: KCL 10MEQ/100ML SWI (KRUN) 10 MEQ in APPROPRIATE DILUENT 1 EA IV ONE (08:15)
--- NOTE | 2018-11-10 08:19 | IPNPDOC ---
Subjective Date Seen The patient was seen on 11/10/18. Subjective Chief Complaint/HPI dementia, parkinson's Events since last encounter Patient remains with minimal response. has been made NPO. Meetings held with family yesterday and they remain indecisive regarding decisions for nutritional status: tube feed vs ACCOUNTING TEACHER. D5w with 0.25 NS infusing at 100 ml per hour with improvement of sodium levels. General: Reports: ROS Unobtainable Objective Physical Examination General Exam: Positive: No Acute Distress; Negative: Alert Neck Exam: Positive: Supple Chest Exam: Positive: Normal air movement, Diminished (LLL) Heart Exam: Positive: Rate Normal, Normal S1, Normal S2 Abdomen Exam: Positive: Normal bowel sounds Extremity Exam: Negative: Edema Skin Exam: Positive: Nl turgor and temperature Neuro Exam: Positive: Other (non-verbal, minimal reposnse to tactile stimulation. no response to verbal stim. ) Assessment /Plan Problems (1) Lewy body dementia Status: Chronic Problem Text: 11/10 CT head NAD, increased agitation c hydration/rx of PN, px pulled out peripheral IV this AM-would need sitter, mitts and prn halo to keep peripheral in 11/06 last AP-coty 2.5 10/25 increased to 2.5 at 6, 5 at 16 (given agitation increases ~16) 10/22 changed to olanz 2.5 BID 10/21 risper 0.25 BID not tolerated quet 25 BID held on admission 2 prolonged QTC avoid benzodiazepines in patients with Lewy Body dementia, for it will worsen their hallucinations. (2) Oropharyngeal dysphagia Status: Chronic Response to Treatment: Stable Problem Text: inadequate alertness to reattempt po feeding 11/10/18 long dw family, favor reattempt bedside swallowing eval in AM, if fails, change to ACCOUNTING TEACHER. DNR/DNI agreed upon. MOLST in chart. 11/08/18: bedside ST evaluation recommends NPO-dced meds or changed to IV (3) ASHLEY (acute kidney injury) Status: Acute Problem Text: 2 dehydration c hyperNa/Cl 11/08 1.3 improving c hydration 11/07 69/1.4 Na 161 11/06 +D51/2NS 100H baseline cr 0.9/Na 144 (4) Hypernatremia Status: Acute Problem Text: 11/10 151 (159)-patient removed D1/4 NS 150H this AM-family does NOT want it replaced 11/08/18:Na 161 (161)-favor persistent free water deficit-IVF changed to D5W with 0.25 NS. Na 161 today. 2 dehydration-as per ASHLEY (5) Left lower lobe pneumonia Status: Acute Response to Treatment: Stable Problem Text: D3 ceftriaxone poor cough reflex 11/10 5.4, AF, CXR c mild improvement 11/08 8.8, AF 11/07 WBC 10.1 (10/27 5.1) and CXR c slightly increased LLL opacity, but AF, s obvious dyspnea and 99% RA given ho prolonged QTc-FQ not used (6) Orthostasis Status: Resolved Problem Text: Most likely autonomic in nature secondary to advanced Parkinson disease and dementia Is no need for IV hydration, or any intervention at this point Continue home meds (7) Prolonged Q-T interval on ECG Status: Resolved (8) Physical deconditioning Status: Chronic Problem Text: 11/10 long dw daughter Lola Garcia at bedside ([phone]) [phone] Plan/VTE VTE Prophylaxis Ordered?: Yes Plan Anticipated Discharge: Prison VS, I&O, 24H, [facility] Vital Signs/I&O Vital Signs Date Time Temp Pulse Resp B/P (MAP) Pulse Ox O2 Delivery O2 Flow Rate FiO2 11/10/18 06:00 97.9 72 19 145/76 (99) 92 I&O- Last 24 Hours up to 6 AM 11/10/18 05:59 Intake Total 3350 ml Balance 3350 ml Laboratory Data 24H LABS Laboratory Tests 2 11/10/18 06:02: Immature Granulocyte % (Auto) 1.3, White Blood Count 5.4, Red Blood Count 3.78L, Hemoglobin 11.7L, Hematocrit 36.4L, Mean Corpuscular Volume 96.3H, Mean Corpuscular Hemoglobin 31.0, Mean Corpuscular Hemoglobin Concent 32.1, Red Cell Distribution Width 13.4, Platelet Count 201, Neutrophils (%) (Auto) 58.9, Lymphocytes (%) (Auto) 28.5, Monocytes (%) (Auto) 8.9H, Eosinophils (%) (Auto) 2.2, Basophils (%) (Auto) 0.2, Neutrophils # (Auto) 3.2, Lymphocytes # (Auto) 1.5, Monocytes # (Auto) 0.5, Eosinophils # (Auto) 0.1, Basophils # (Auto) 0.0, Nucleated Red Blood Cells % (auto) 0.0, Anion Gap 5L, Glomerular Filtration Rate > 60.0, Blood Urea Nitrogen 28H, Creatinine 0.80, Sodium Level 151#H, Potassium Level 3.3L, Chloride Level 119H, Carbon Dioxide Level 27, Calcium Level 8.1L, Aspartate Amino Transf (AST/SGOT) 21, Alanine Aminotransferase (ALT/SGPT) 17, Alkaline Phosphatase 67, Total Bilirubin 0.5, Total Protein 5.3L, Albumin 2.4L, Albumin/Globulin Ratio 0.83L CBC/BMP Laboratory Tests 11/10/18 06:02 Red Blood Count 3.78 L, Mean Corpuscular Volume 96.3 H, Mean Corpuscular Hemoglobin 31.0, Mean Corpuscular Hemoglobin Concent 32.1, Red Cell Distribution Width 13.4, Neutrophils (%) (Auto) 58.9, Lymphocytes (%) (Auto) 28.5, Monocytes (%) (Auto) 8.9 H, Eosinophils (%) (Auto) 2.2, Basophils (%) (Auto) 0.2, Neutrophils # (Auto) 3.2, Lymphocytes # (Auto) 1.5, Monocytes # (Auto) 0.5, Eosinophils # (Auto) 0.1, Basophils # (Auto) 0.0, Calcium Level 8.1 L, Aspartate Amino Transf (AST/SGOT) 21, Alanine Aminotransferase (ALT/SGPT) 17, Alkaline Phosphatase 67, Total Bilirubin 0.5, Total Protein 5.3 L, Albumin 2.4 L Le Perez Nov 10, 2018 08:19 Thai Sheridan M.D. Nov 10, 2018 17:12
[2018-11-10] MEDS: HEPARIN SOD (PORCINE) 5000 UNITS/ML VIAL SC SCH ×2 (08:21→20:59)
[2018-11-10] MEDS: DOCUSATE SOD LIQ 100MG/10ML UDC PO SCH ×2 (08:21→21:00)
[2018-11-10] MEDS: DIVALPROEX SPRINKLE 125 MG CAP PO SCH (09:00)
[2018-11-10] MEDS: CLOPIDOGREL 75 MG TAB PO SCH (09:00)
[2018-11-10] MEDS: POTASSIUM CHLORIDE 10 MEQ SR TABLET PO SCH (09:00)
[2018-11-10] MEDS: POLYVINYL ALCOHOL OPHTH SOLN 15 ML(LIQUITEARS) OU SCH ×4 (09:38→20:59)
--- NOTE | 2018-11-10 11:56 | REP ---
CT HEAD WITHOUT CONTRAST: HISTORY: Altered mental status. COMPARISON: 10/19/2018 Areas of decreased attenuation are present in the periventricular white matter. This represents small vessel ischemic disease. There is no intraparenchymal hemorrhage, mass or midline shift. The ventricular system and cortical sulci are dilated consistent with mild volume loss. There is no extracerebral collection. Minimal mucosal thickening is present in the ethmoid sinuses. IMPRESSION: 1. Small vessel ischemic disease. 2. Mild volume loss. Electronically Signed by Miguel Sanchez MD 11/10/2018 12:25 P
[2018-11-10] MEDS: cefTRIAXone SOD 1 GM in D5W MINI-BAG PLUS 50 ML IV SCH (17:25)
--- NOTE | 2018-11-10 17:29 | REP ---
CHEST, TWO VIEWS: Two views of the chest are performed. COMPARISON: 11/07/2018 as well as other prior exams. There again appears to be some minimal atelectasis or infiltrate in the left retrocardiac region, unchanged. No new infiltrate is seen. The heart is normal in size and the mediastinal silhouette is unchanged. IMPRESSION: Minimal stable left retrocardiac atelectasis/infiltrate. Electronically Signed by Kyle Aranda MD 11/11/2018 09:33 A
[2018-11-10] MEDS ORDERED: HALOPERIDOL 5 MG/ML VIAL (J1630) IM PRN (18:00)
[2018-11-10] MEDS: ATORVASTATIN 20 MG TAB PO SCH (21:00)
[2018-11-11 06:00] VITALS: BP 129/79
[2018-11-11 06:02] LABS: BASO % 0.1 % (0.0-1.0); EOS # 0.1 10^3/uL (0.0-0.50); EOS % 1.3 % (0.0-3.0); HEMATOCRIT 37.8 % (42.0-52.0); HEMOGLOBIN 12.4 g/dl (13.5-17.5); LYMPH # 1.2 10^3/uL (1.5-4.5); LYMPH % 16.9 % (24.0-44.0); MEAN CORPUSCULAR HGB CONC 32.8 g/dl (32.0-36.5); MEAN CORPUSCULAR VOLUME 94.5 fl (80.0-96.0); MONO # 0.6 10^3/uL (0.0-0.8); MONO % 8.5 % (0.0-5.0); NEUTROPHILS # 4.9 10^3/uL (1.8-7.7); NEUTROPHILS % 71.6 % (36.0-66.0); PLATELET COUNT, AUTOMATED 215 10^3/uL (150-450); WHITE BLOOD COUNT 6.8 10^3/uL (4.0-10.0)
[2018-11-11 06:28] LABS: ALBUMIN 2.7 GM/DL (3.2-5.2); ALT/SGPT 23 U/L (12-78); BILIRUBIN,TOTAL 0.7 MG/DL (0.2-1.0); BLOOD UREA NITROGEN 26 MG/DL (7-18); CALCIUM LEVEL 8.3 MG/DL (8.8-10.2); CARBON DIOXIDE LEVEL 28 MEQ/L (21-32); CHLORIDE LEVEL 117 MEQ/L (98-107); CREATININE FOR GFR 0.87 MG/DL (0.70-1.30); GLOMERULAR FILTRATION RATE > 60.0 (>42); GLUCOSE, FASTING 77 MG/DL (70-100); NT-PRO BNP 237 PG/ML (<450); POTASSIUM SERUM 3.1 MEQ/L (3.5-5.1); SODIUM LEVEL 151 MEQ/L (136-145); TOTAL PROTEIN 5.8 GM/DL (6.4-8.2)
[2018-11-11] MEDS: POLYVINYL ALCOHOL OPHTH SOLN 15 ML(LIQUITEARS) OU SCH ×4 (08:35→20:36)
[2018-11-11] MEDS: HEPARIN SOD (PORCINE) 5000 UNITS/ML VIAL SC SCH (08:35)
[2018-11-11] MEDS: POTASSIUM CHLORIDE 10 MEQ SR TABLET PO SCH (09:00)
[2018-11-11] MEDS: DOCUSATE SOD LIQ 100MG/10ML UDC PO SCH (09:00)
[2018-11-11] MEDS: CLOPIDOGREL 75 MG TAB PO SCH (09:00)
[2018-11-11] MEDS: DIVALPROEX SPRINKLE 125 MG CAP PO SCH (09:00)
--- NOTE | 2018-11-11 09:45 | IPNPDOC ---
Subjective Date Seen The patient was seen on 11/11/18. Subjective Chief Complaint/HPI Pt's family at bedside this morning with ST. They have requested on additional ST eval this morning, if the pt doesn't do well they plan to make him [employer]. General: Reports: ROS Unobtainable Objective Physical Examination General Exam: Positive: No Acute Distress; Negative: Alert Neck Exam: Positive: Supple Chest Exam: Positive: Normal air movement, Diminished (LLL) Heart Exam: Positive: Rate Normal, Normal S1, Normal S2 Abdomen Exam: Positive: Normal bowel sounds Extremity Exam: Negative: Edema Skin Exam: Positive: Nl turgor and temperature Neuro Exam: Positive: Other (non-verbal, minimal reposnse to tactile stimul ation. no response to verbal stim. ) Assessment /Plan Problems (1) Lewy body dementia Status: Chronic Problem Text: 11/11 pt unable to take in oral nutrition, family has declined PEG, pt has had repeat ST eval this morning with recommendations for NPO, family plans to administer ice chips understanding risk for aspiration. Family at bedside to speak with remaining family regarding [employer] and will let me know decision. They would like the pt to remain in the hopsital understanding without hydration and nutrition he will survive only a few days. 11/10 CT head NAD, increased agitation c hydration/rx of PN, px pulled out peripheral IV this AM-would need sitter, mitts and prn halo to keep peripheral in 11/06 last AP-coty 2.5 10/25 increased to 2.5 at 6, 5 at 16 (given agitation increases ~16) 10/22 changed to olanz 2.5 BID 10/21 risper 0.25 BID not tolerated quet 25 BID held on admission 2 prolonged QTC avoid benzodiazepines in patients with Lewy Body dementia, for it will worsen their hallucinations. (2) Oropharyngeal dysphagia Status: Chronic Response to Treatment: Stable Problem Text: inadequate alertness to reattempt po feeding 11/10/18 long dw family, favor reattempt bedside swallowing eval in AM, if fails, change to [employer]. DNR/DNI agreed upon. MOLST in chart. 11/08/18: bedside ST evaluation recommends NPO-dced meds or changed to IV (3) ASHLEY (acute kidney injury) Status: Acute Problem Text: 2 dehydration c hyperNa/Cl 11/08 1.3 improving c hydration 11/07 69/1.4 Na 161 11/06 +D51/2NS 100H baseline cr 0.9/Na 144 (4) Hypernatremia Status: Acute Problem Text: 11/10 151 (159)-patient removed D1/ NS 150H this AM-family does NOT want it replaced 11/08/18:Na 161 (161)-favor persistent free water deficit-IVF changed to D5W with 0.25 NS. Na 161 today. 2 dehydration-as per ASHLEY (5) Left lower lobe pneumonia Status: Acute Response to Treatment: Stable Problem Text: D3 ceftriaxone poor cough reflex 11/10 5.4, AF, CXR c mild improvement 11/08 8.8, AF 11/07 WBC 10.1 (10/27 5.1) and CXR c slightly increased LLL opacity, but AF, s obvious dyspnea and 99% RA given ho prolonged QTc-FQ not used (6) Orthostasis Status: Resolved Problem Text: Most likely autonomic in nature secondary to advanced Parkinson disease and dementia Is no need for IV hydration, or any intervention at this point Continue home meds (7) Prolonged Q-T interval on ECG Status: Resolved (8) Physical deconditioning Status: Chronic Problem Text: 11/10 long dw daughter Lola Garica at bedside ([phone]) [phone] Plan/VTE VTE Prophylaxis Ordered?: Yes Plan Anticipated Discharge: Intermediate VS, I&O, 24H, [facility] Vital Signs/I&O Vital Signs Date Time Temp Pulse Resp B/P (MAP) Pulse Ox O2 Delivery O2 Flow Rate FiO2 11/11/18 06:00 96.0 69 18 129/79 (96) 99 I&O- Last 24 Hours up to 6 AM 11/11/18 06:00 Intake Total 0 ml Balance 0 ml Laboratory Data 24H LABS Laboratory Tests 2 11/11/18 05:34: Immature Granulocyte % (Auto) 1.6, White Blood Count 6.8, Red Blood Count 4.00L, Hemoglobin 12.4L, Hematocrit 37.8L, Mean Corpuscular Volume 94.5, Mean Corpuscular Hemoglobin 31.0, Mean Corpuscular Hemoglobin Concent 32.8, Red Cell Distribution Width 12.9, Platelet Count 215, Neutrophils (%) (Auto) 71.6H, Lymphocytes (%) (Auto) 16.9L, Monocytes (%) (Auto) 8.5H, Eosinophils (%) (Auto) 1.3, Basophils (%) (Auto) 0.1, Neutrophils # (Auto) 4.9, Lymphocytes # (Auto) 1.2L, Monocytes # (Auto) 0.6, Eosinophils # (Auto) 0.1, Basophils # (Auto) 0.0, Nucleated Red Blood Cells % (auto) 0.0, Anion Gap 6L, Glomerular Filtration Rate > 60.0, Blood Urea Nitrogen 26H, Creatinine 0.87, Sodium Level 151H, Potassium Level 3.1L, Chloride Level 117H, Carbon Dioxide Level 28, Calcium Level 8.3L, Aspartate Amino Transf (AST/SGOT) 32, Alanine Aminotransferase (ALT/SGPT) 23, Alkaline Phosphatase 78, Total Bilirubin 0.7, Total Protein 5.8L, Albumin 2.7L, TO-Bad-N-Type Natriuretic Peptide 237, Albumin/Globulin Ratio 0.87L CBC/BMP Laboratory Tests 11/11/18 05:34 Red Blood Count 4.00 L, Mean Corpuscular Volume 94.5, Mean Corpuscular Hemoglobin 31.0, Mean Corpuscular Hemoglobin Concent 32.8, Red Cell Distribution Width 12.9, Neutrophils (%) (Auto) 71.6 H, Lymphocytes (%) (Auto) 16.9 L, Monocytes (%) (Auto) 8.5 H, Eosinophils (%) (Auto) 1.3, Basophils (%) (Auto) 0.1, Neutrophils # (Auto) 4.9, Lymphocytes # (Auto) 1.2 L, Monocytes # (Auto) 0.6, Eosinophils # (Auto) 0.1, Basophils # (Auto) 0.0, Calcium Level 8.3 L, Aspartate Amino Transf (AST/SGOT) 32, Alanine Aminotransferase (ALT/SGPT) 23, Alkaline Phosphatase 78, Total Bilirubin 0.7, Total Protein 5.8 L, Albumin 2.7 L GRETTA EDMONDSON PA-C Nov 11, 2018 09:45
[2018-11-11 10:00] VITALS: BP 155/75
[2018-11-11] MEDS: SCOPOLAMINE 1MG TRANSDERMAL PATCH TOP PRN (22:27)
[2018-11-12 06:56] LABS: BASO % 0.3 % (0.0-1.0); EOS # 0.1 10^3/uL (0.0-0.50); EOS % 0.8 % (0.0-3.0); HEMATOCRIT 42.5 % (42.0-52.0); HEMOGLOBIN 13.8 g/dl (13.5-17.5); LYMPH # 1.2 10^3/uL (1.5-4.5); LYMPH % 19.1 % (24.0-44.0); MEAN CORPUSCULAR HEMOGLOBIN 31.5 pg (27.0-33.0); MEAN CORPUSCULAR HGB CONC 32.5 g/dl (32.0-36.5); MONO # 0.4 10^3/uL (0.0-0.8); MONO % 6.9 % (0.0-5.0); NEUTROPHILS # 4.5 10^3/uL (1.8-7.7); NEUTROPHILS % 71.3 % (36.0-66.0); PLATELET COUNT, AUTOMATED 218 10^3/uL (150-450); RED BLOOD COUNT 4.38 10^6/uL (4.30-6.10); WHITE BLOOD COUNT 6.3 10^3/uL (4.0-10.0)
[2018-11-12 07:23] LABS: ALT/SGPT 26 U/L (12-78); BILIRUBIN,TOTAL 0.9 MG/DL (0.2-1.0); BLOOD UREA NITROGEN 30 MG/DL (7-18); CALCIUM LEVEL 8.8 MG/DL (8.8-10.2); CARBON DIOXIDE LEVEL 27 MEQ/L (21-32); CHLORIDE LEVEL 118 MEQ/L (98-107); CREATININE FOR GFR 0.76 MG/DL (0.70-1.30); GLOMERULAR FILTRATION RATE > 60.0 (>42); GLUCOSE, FASTING 68 MG/DL (70-100); POTASSIUM SERUM 3.7 MEQ/L (3.5-5.1); SODIUM LEVEL 152 MEQ/L (136-145)
[2018-11-12] MEDS: POLYVINYL ALCOHOL OPHTH SOLN 15 ML(LIQUITEARS) OU SCH ×4 (09:00→21:00)
[2018-11-12] MEDS: MORPHINE 10MG/0.5ML ORAL CONCENTRATE SOLUTION U/D SL PRN (12:25)
--- NOTE | 2018-11-12 14:32 | IPNPDOC ---
Subjective Date Seen The patient was seen on 11/12/18. Subjective Chief Complaint/HPI remains comfortable s agitation Constitutional: Denies: Chills Eyes: Denies: Pain ENT: Denies: Head Aches Skin: Denies: Rash Pulmonary: Denies: Dyspnea Cardiovascular: Denies: Chest Pain Gastrointestinal: Denies: Vomiting Objective Physical Examination General Exam: Positive: No Acute Distress; Negative: Alert Neck Exam: Positive: Supple Chest Exam: Positive: Normal air movement, Diminished (LLL) Heart Exam: Positive: Rate Normal, Normal S1, Normal S2 Abdomen Exam: Positive: Normal bowel sounds Extremity Exam: Negative: Edema Skin Exam: Positive: Nl turgor and temperature Neuro Exam: Positive: Other (non-verbal, minimal reposnse to tactile stimulation. no response to verbal stim. 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 comfortable on HAIRSPRING CUTTER status-has sera 0.5 q4Hprn/halo 0.5 q2Hprn/Roxanol 2 q2H prn/scopo patch 11/11 pt unable to take in oral nutrition, family has declined PEG, pt has had repeat ST eval this morning with recommendations for NPO, family plans to administer ice chips understanding risk for aspiration; therefore, all family agrees c HAIRSPRING CUTTER-MOLST completed cw HAIRSPRING CUTTER 11/10 CT head NAD, increased agitation c hydration/rx of PN, px pulled out peripheral IV this AM-would need sitter, mitts and prn halo to keep peripheral in 11/06 last AP-coty 2.5 10/25 increased to 2.5 at 6, 5 at 16 (given agitation increases ~16) 10/22 changed to olanz 2.5 BID 10/21 risper 0.25 BID not tolerated quet 25 BID held on admission 2 prolonged QTC avoid benzodiazepines in patients with Lewy Body dementia, for it will worsen their hallucinations. (2) Oropharyngeal dysphagia Status: Chronic Response to Treatment: Stable Problem Text: inadequate alertness to reattempt po feeding 11/10/18 long dw family, favor reattempt bedside swallowing eval in AM, if fails, change to HAIRSPRING CUTTER. DNR/DNI agreed upon. MOLST in chart. 11/08/18: bedside ST evaluation recommends NPO-dced meds or changed to IV (3) ASHLEY (acute kidney injury) Status: Acute Problem Text: 2 dehydration c hyperNa/Cl 11/08 1.3 improving c hydration 11/07 69/1.4 Na 161 11/06 +D51/2NS 100H baseline cr 0.9/Na 144 (4) Hypernatremia Status: Acute Problem Text: 11/10 151 (159)-patient removed D1 NS 150H this AM-family does NOT want it replaced 11/08/18:Na 161 (161)-favor persistent free water deficit-IVF changed to D5W with 0.25 NS. Na 161 today. 2 dehydration-as per ASHLEY (5) Left lower lobe pneumonia Status: Acute Response to Treatment: Stable Problem Text: D3 ceftriaxone poor cough reflex 11/10 5.4, AF, CXR c mild improvement 11/08 8.8, AF 11/07 WBC 10.1 (10/27 5.1) and CXR c slightly increased LLL opacity, but AF, s obvious dyspnea and 99% RA given ho prolonged QTc-FQ not used (6) Orthostasis Status: Resolved Problem Text: Most likely autonomic in nature secondary to advanced Parkinson disease and dementia Is no need for IV hydration, or any intervention at this point Continue home meds (7) Prolonged Q-T interval on ECG Status: Resolved (8) Physical deconditioning Status: Chronic Problem Text: 11/10 long dw daughter Lola Garcia at bedside ([phone]) [phone] Plan/VTE VTE Prophylaxis Ordered?: Yes Plan Anticipated Discharge: Long Term VS, I&O, 24H, [facility] Vital Signs/I&O Vital Signs Date Time Temp Pulse Resp B/P (MAP) Pulse Ox O2 Delivery O2 Flow Rate FiO2 11/12/18 12:55 20 11/11/18 10:00 98.0 71 155/75 (101) 97 Laboratory Data 24H LABS Laboratory Tests 2 11/12/18 05:32: Immature Granulocyte % (Auto) 1.6, White Blood Count 6.3, Red Blood Count 4.38, Hemoglobin 13.8, Hematocrit 42.5, Mean Corpuscular Volume 97.0H, Mean Corpuscular Hemoglobin 31.5, Mean Corpuscular Hemoglobin Concent 32.5, Red Cell Distribution Width 13.0, Platelet Count 218, Neutrophils (%) (Auto) 71.3H, Lymphocytes (%) (Auto) 19.1L, Monocytes (%) (Auto) 6.9H, Eosinophils (%) (Auto) 0.8, Basophils (%) (Auto) 0.3, Neutrophils # (Auto) 4.5, Lymphocytes # (Auto) 1.2L, Monocytes # (Auto) 0.4, Eosinophils # (Auto) 0.1, Basophils # (Auto) 0.0, Nucleated Red Blood Cells % (auto) 0.0, Anion Gap 7L, Glomerular Filtration Rate > 60.0, Blood Urea Nitrogen 30H, Creatinine 0.76, Sodium Level 152H, Potassium Level 3.7, Chloride Level 118H, Carbon Dioxide Level 27, Calcium Level 8.8, Aspartate Amino Transf (AST/SGOT) 32, Alanine Aminotransferase (ALT/SGPT) 26, Alkaline Phosphatase 84, Total Bilirubin 0.9, Total Protein 6.0L, Albumin 3.0L, Albumin/Globulin Ratio 1.00 CBC/BMP Laboratory Tests 11/12/18 05:32 Red Blood Count 4.38, Mean Corpuscular Volume 97.0 H, Mean Corpuscular Hemoglobin 31.5, Mean Corpuscular Hemoglobin Concent 32.5, Red Cell Distribution Width 13.0, Neutrophils (%) (Auto) 71.3 H, Lymphocytes (%) (Auto) 19.1 L, Monocytes (%) (Auto) 6.9 H, Eosinophils (%) (Auto) 0.8, Basophils (%) (Auto) 0.3, Neutrophils # (Auto) 4.5, Lymphocytes # (Auto) 1.2 L, Monocytes # (Auto) 0.4, Eosinophils # (Auto) 0.1, Basophils # (Auto) 0.0, Calcium Level 8.8, Aspartate Amino Transf (AST/SGOT) 32, Alanine Aminotransferase (ALT/SGPT) 26, Alkaline Phosphatase 84, Total Bilirubin 0.9, Total Protein 6.0 L, Albumin 3.0 L Thai Sheridan M.D. Nov 12, 2018 14:32
[2018-11-12] MEDS ORDERED: LORazepam 2 MG/ML VIAL (J2060) IM PRN (14:45)
[2018-11-12] MEDS ORDERED: HALOPERIDOL 5 MG/ML VIAL (J1630) IM PRN (14:45)
[2018-11-13] MEDS: POLYVINYL ALCOHOL OPHTH SOLN 15 ML(LIQUITEARS) OU SCH ×3 (09:00→17:00)
--- NOTE | 2018-11-13 18:26 | IPNPDOC ---
Subjective Date Seen The patient was seen on 11/13/18. Subjective Chief Complaint/HPI remains s distress Constitutional: Denies: Chills Eyes: Denies: Pain Skin: Denies: Rash Pulmonary: Denies: Dyspnea Cardiovascular: Denies: Chest Pain, Palpitations Gastrointestinal: Denies: Vomiting Objective Physical Examination General Exam: Positive: No Acute Distress; Negative: Alert Neck Exam: Positive: Supple Chest Exam: Positive: Normal air movement, Diminished (LLL) Heart Exam: Positive: Rate Normal, Normal S1, Normal S2 Abdomen Exam: Positive: Normal bowel sounds Extremity Exam: Negative: Edema Skin Exam: Positive: Nl turgor and temperature Neuro Exam: Positive: Other (non-verbal, minimal reposnse to tactile stimulation. no response to verbal stim. 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 comfortable on [employer]PERVISOR [employer] status-has sera 0.5 q4Hprn/halo 0.5 q2Hprn/Roxanol 2 q2H prn/scopo patch 11/11 pt unable to take in oral nutrition, family has declined PEG, pt has had repeat ST eval this morning with recommendations for NPO, family plans to administer ice chips understanding risk for aspiration; therefore, all family agrees c [employer]-MOLST completed cw [employer] 11/10 CT head NAD, increased agitation c hydration/rx of PN, px pulled out peripheral IV this AM-would need sitter, mitts and prn halo to keep peripheral in 11/06 last AP-coty 2.5 10/25 increased to 2.5 at 6, 5 at 16 (given agitation increases ~16) 10/22 changed to olanz 2.5 BID 10/21 risper 0.25 BID not tolerated quet 25 BID held on admission 2 prolonged QTC avoid benzodiazepines in patients with Lewy Body dementia, for it will worsen their hallucinations. (2) Oropharyngeal dysphagia Status: Chronic Response to Treatment: Stable Problem Text: inadequate alertness to reattempt po feeding 11/10/18 long dw family, favor reattempt bedside swallowing eval in AM, if fails, change to [employer]PER[employer]. DNR/DNI agreed upon. MOLST in chart. 11/08/18: bedside ST evaluation recommends NPO-dced meds or changed to IV (3) Hypernatremia Status: Acute Problem Text: 2 dehydration-now [employer] (4) Left lower lobe pneumonia Status: Acute Response to Treatment: Stable Problem Text: D3 ceftriaxone poor cough reflex 11/10 5.4, AF, CXR c mild improvement 11/08 8.8, AF 11/07 WBC 10.1 (10/27 5.1) and CXR c slightly increased LLL opacity, but AF, s obvious dyspnea and 99% RA given ho prolonged QTc-FQ not used (5) Physical deconditioning Status: Chronic Problem Text: 11/10 long dw daughter Lola Garcia at bedside ([phone]) [phone] Plan/VTE VTE Prophylaxis Ordered?: Yes Plan Anticipated Discharge: Prison VS[facility] Vital Signs/I&O Vital Signs Date Time Temp Pulse Resp B/P (MAP) Pulse Ox O2 Delivery O2 Flow Rate FiO2 11/12/18 12:55 20 11/11/18 10:00 98.0 71 155/75 (101) 97 I&O- Last 24 Hours up to 6 AM 11/13/18 06:00 Intake Total 0 ml Output Total 550 ml Balance -550 ml Thai Sheridan M.D. Nov 13, 2018 18:26
[2018-11-14] MEDS: POLYVINYL ALCOHOL OPHTH SOLN 15 ML(LIQUITEARS) OU SCH ×5 (03:01→20:27)
[2018-11-14] MEDS: MORPHINE 10MG/0.5ML ORAL CONCENTRATE SOLUTION U/D SL PRN ×3 (09:53→20:28)
--- NOTE | 2018-11-14 11:10 | IPNPDOC ---
Subjective Date Seen The patient was seen on 11/14/18. Subjective Chief Complaint/HPI none General: Reports: ROS Unobtainable Objective Physical Examination General Exam: Positive: No Acute Distress; Negative: Alert Neck Exam: Positive: Supple Chest Exam: Positive: Normal air movement, Diminished Heart Exam: Positive: Rate Normal, Normal S1, Normal S2 Extremity Exam: Negative: Edema Neuro Exam: Positive: Other (non-verbal, minimal reposnse to tactile stimulation. no response to verbal stim. ) Psych Exam: Positive: Other (occasional intelligible words, occasional moaning.) Assessment /Plan Problems (1) Lewy body dementia Status: Chronic Problem Text: 11/14 seems comfortable at this time. MANAGER CONCRETE in place. Discussed Hospice with family and they would like this consult. remains comfortable on MANAGER CONCRETE status-has sera 0.5 q4Hprn/halo 0.5 q2Hprn/Roxanol 2 q2H prn/scopo patch 11/11 pt unable to take in oral nutrition, family has declined PEG, pt has had repeat ST eval this morning with recommendations for NPO, family plans to administer ice chips understanding risk for aspiration; therefore, all family agrees c MANAGER CONCRETE-MOLST completed cw MANAGER CONCRETE 11/10 CT head NAD, increased agitation c hydration/rx of PN, px pulled out peripheral IV this AM-would need sitter, mitts and prn halo to keep peripheral in 11/06 last AP-coty 2.5 10/25 increased to 2.5 at 6, 5 at 16 (given agitation increases ~16) 10/22 changed to olanz 2.5 BID 10/21 risper 0.25 BID not tolerated quet 25 BID held on admission 2 prolonged QTC avoid benzodiazepines in patients with Lewy Body dementia, for it will worsen their hallucinations. (2) Oropharyngeal dysphagia Status: Chronic Response to Treatment: Stable Problem Text: 11/14 product of dementia. MANAGER CONCRETE inadequate alertness to reattempt po feeding 11/10/18 long dw family, favor reattempt bedside swallowing eval in AM, if fails, change to MANAGER CONCRETE. DNR/DNI agreed upon. MOLST in chart. 11/08/18: bedside ST evaluation recommends NPO-dced meds or changed to IV (3) Hypernatremia Status: Acute Response to Treatment: Uncontrolled Problem Text: 2 dehydration-now MANAGER CONCRETE (4) Left lower lobe pneumonia Status: Acute Response to Treatment: Stable Problem Text: MANAGER CONCRETE D3 ceftriaxone poor cough reflex 11/10 5.4, AF, CXR c mild improvement 11/08 8.8, AF 11/07 WBC 10.1 (10/27 5.1) and CXR c slightly increased LLL opacity, but AF, s obvious dyspnea and 99% RA given ho prolonged QTc-FQ not used (5) Physical deconditioning Status: Chronic Problem Text: 11/14 see above, Hospice requested for counseling support of family. 11/10 long dw daughter Lola Garcia at bedside ([phone]) [phone] (6) Severe protein-calorie malnutrition Status: Chronic Response to Treatment: Worse Problem Text: product of dementia related inanition. MANAGER CONCRETE status Plan/VTE VTE Prophylaxis Ordered?: Yes Plan Anticipated Discharge: Care Home Advance Directives: DNR VS, I&O, 24H, [facility] Vital Signs/I&O Vital Signs Date Time Temp Pulse Resp B/P (MAP) Pulse Ox O2 Delivery O2 Flow Rate FiO2 11/12/18 12:55 20 11/11/18 10:00 98.0 71 155/75 (101) 97 I&O- Last 24 Hours up to 6 AM 11/14/18 05:59 Intake Total 120 ml Output Total 0 ml Balance 120 ml Anoop Nguyen MD Nov 14, 2018 11:10
[2018-11-15] MEDS: MORPHINE 10MG/0.5ML ORAL CONCENTRATE SOLUTION U/D SL PRN ×6 (04:32→22:08)
[2018-11-15] MEDS: POLYVINYL ALCOHOL OPHTH SOLN 15 ML(LIQUITEARS) OU SCH ×4 (09:28→22:06)
--- NOTE | 2018-11-15 10:09 | IPNPDOC ---
Subjective Date Seen The patient was seen on 11/15/18. Subjective Chief Complaint/HPI Pt's son at bedside, no new concerns. General: Reports: ROS Unobtainable Objective Physical Examination General Exam: Positive: No Acute Distress; Negative: Alert Neck Exam: Positive: Supple Chest Exam: Positive: Normal air movement, Diminished Heart Exam: Positive: Rate Normal, Normal S1, Normal S2 Extremity Exam: Negative: Edema Neuro Exam: Positive: Other (non-verbal, minimal reposnse to tactile stimulation. no response to verbal stim. ) Psych Exam: Positive: Other (occasional intelligible words, occasional moaning.) Assessment /Plan Problems (1) Lewy body dementia Status: Chronic Problem Text: 11/15 Appears comfortable, pt's family without concerns 11/14 seems comfortable at this time. TOLL LINE REPAIRER in place. Discussed Hospice with family and they would like this consult. remains comfortable on TOLL LINE REPAIRER status-has sera 0.5 q4Hprn/halo 0.5 q2Hprn/Roxanol 2 q2H prn/scopo patch 11/11 pt unable to take in oral nutrition, family has declined PEG, pt has had repeat ST eval this morning with recommendations for NPO, family plans to administer ice chips understanding risk for aspiration; therefore, all family agrees c TOLL LINE REPAIRER-MOLST completed cw TOLL LINE REPAIRER 11/10 CT head NAD, increased agitation c hydration/rx of PN, px pulled out peripheral IV this AM-would need sitter, mitts and prn halo to keep peripheral in 11/06 last AP-coty 2.5 10/25 increased to 2.5 at 6, 5 at 16 (given agitation increases ~16) 10/22 changed to olanz 2.5 BID 10/21 risper 0.25 BID not tolerated quet 25 BID held on admission 2 prolonged QTC avoid benzodiazepines in patients with Lewy Body dementia, for it will worsen their hallucinations. (2) Oropharyngeal dysphagia Status: Chronic Response to Treatment: Stable Problem Text: 11/14 product of dementia. TOLL LINE REPAIRER inadequate alertness to reattempt po feeding 11/10/18 long dw family, favor reattempt bedside swallowing eval in AM, if fails, change to TOLL LINE REPAIRER. DNR/DNI agreed upon. MOLST in chart. 11/08/18: bedside ST evaluation recommends NPO-dced meds or changed to IV (3) Hypernatremia Status: Acute Response to Treatment: Uncontrolled Problem Text: 2 dehydration-now TOLL LINE REPAIRER (4) Left lower lobe pneumonia Status: Acute Response to Treatment: Stable Problem Text: TOLL LINE REPAIRER D3 ceftriaxone poor cough reflex 11/10 5.4, AF, CXR c mild improvement 11/08 8.8, AF 11/07 WBC 10.1 (10/27 5.1) and CXR c slightly increased LLL opacity, but AF, s obvious dyspnea and 99% RA given ho prolonged QTc-FQ not used (5) Physical deconditioning Status: Chronic Problem Text: 11/14 see above, Hospice requested for counseling support of family. 11/10 long dw daughter Lola Garcia at bedside ([phone]) [phone] (6) Severe protein-calorie malnutrition Status: Chronic Response to Treatment: Worse Problem Text: product of dementia related inanition. TOLL LINE REPAIRER status Plan/VTE VTE Prophylaxis Ordered?: Yes Plan Anticipated Discharge: Retirement Advance Directives: DNR VS, I&O, 24H, Fishbone Vital Signs/I&O Vital Signs Date Time Temp Pulse Resp B/P (MAP) Pulse Ox O2 Delivery O2 Flow Rate FiO2 11/14/18 20:28 20 11/11/18 10:00 98.0 71 155/75 (101) 97 I&O- Last 24 Hours up to 6 AM 11/15/18 06:00 Intake Total 0 ml Balance 0 ml GRETTA EDMONDSON PA-C Nov 15, 2018 10:09
[2018-11-15 12:09] VITALS: BP 155/75
[2018-11-15] MEDS: SCOPOLAMINE 1MG TRANSDERMAL PATCH TOP PRN (22:06)
[2018-11-15] MEDS: LORazepam 1 MG TAB PO PRN (23:01)
[2018-11-16] MEDS: MORPHINE 10MG/0.5ML ORAL CONCENTRATE SOLUTION U/D SL PRN ×4 (01:18→20:11)
[2018-11-16] MEDS: POLYVINYL ALCOHOL OPHTH SOLN 15 ML(LIQUITEARS) OU SCH ×4 (08:45→20:10)
--- NOTE | 2018-11-16 13:52 | IPNPDOC ---
Subjective Date Seen The patient was seen on 11/16/18. Subjective Chief Complaint/HPI no verbal complaint General: Reports: ROS Unobtainable Objective Physical Examination General Exam: Positive: No Acute Distress; Negative: Alert Neck Exam: Positive: Supple Chest Exam: Positive: Normal air movement, Diminished Heart Exam: Positive: Rate Normal, Normal S1, Normal S2 Extremity Exam: Negative: Edema Neuro Exam: Positive: Other (non-verbal, minimal reposnse to tactile stimulation. no response to verbal stim. ) Psych Exam: Positive: Other (occasional intelligible words, occasional moaning.) Assessment /Plan Problems (1) Lewy body dementia Status: Chronic Problem Text: 11/16: unable to take po. TUBE COREMAKER status, looks comfortable. 11/15 Appears comfortable, pt's family without concerns 11/14 seems comfortable at this time. TUBE COREMAKER in place. Discussed Hospice with family and they would like this consult. remains comfortable on TUBE COREMAKER status-has sera 0.5 q4Hprn/halo 0.5 q2Hprn/Roxanol 2 q2H prn/scopo patch 11/11 pt unable to take in oral nutrition, family has declined PEG, pt has had repeat ST eval this morning with recommendations for NPO, family plans to administer ice chips understanding risk for aspiration; therefore, all family agrees c TUBE COREMAKER-MOLST completed cw TUBE COREMAKER 11/10 CT head NAD, increased agitation c hydration/rx of PN, px pulled out peripheral IV this AM-would need sitter, mitts and prn halo to keep peripheral in 11/06 last AP-coty 2.5 10/25 increased to 2.5 at 6, 5 at 16 (given agitation increases ~16) 10/22 changed to olanz 2.5 BID 10/21 risper 0.25 BID not tolerated quet 25 BID held on admission 2 prolonged QTC avoid benzodiazepines in patients with Lewy Body dementia, for it will worsen their hallucinations. (2) Oropharyngeal dysphagia Status: Chronic Response to Treatment: Stable Problem Text: 11/14 product of dementia. TUBE COREMAKER inadequate alertness to reattempt po feeding 11/10/18 long dw family, favor reattempt bedside swallowing eval in AM, if fails, change to TUBE COREMAKER. DNR/DNI agreed upon. MOLST in chart. 11/08/18: bedside ST evaluation recommends NPO-dced meds or changed to IV (3) Hypernatremia Status: Acute Response to Treatment: Uncontrolled Problem Text: 2 dehydration-now TUBE COREMAKER (4) Left lower lobe pneumonia Status: Acute Response to Treatment: Stable Problem Text: TUBE COREMAKER. D3 ceftriaxone poor cough reflex 11/10 5.4, AF, CXR c mild improvement 11/08 8.8, AF 11/07 WBC 10.1 (7/25 5.1) and CXR c slightly increased LLL opacity, but AF, s obvious dyspnea and 99% RA given ho prolonged QTc-FQ not used (5) Physical deconditioning Status: Chronic Problem Text: 11/14 see above, Hospice requested for counseling support of family. 11/10 long dw daughter Lola Garcia at bedside ([phone]) [phone] (6) Severe protein-calorie malnutrition Status: Chronic Response to Treatment: Worse Problem Text: product of dementia related inanition. TUBE COREMAKER status Plan/VTE VTE Prophylaxis Ordered?: No VTE Exclusion Mechanical Proph: Other (TUBE COREMAKER) Plan Anticipated Discharge: Longterm Advance Directives: DNR VS, I&O, 24H, Fishbone Vital Signs/I&O Vital Signs Date Time Temp Pulse Resp B/P (MAP) Pulse Ox O2 Delivery O2 Flow Rate FiO2 11/15/18 12:09 98.0 71 20 155/75 97 I&O- Last 24 Hours up to 6 AM 11/16/18 06:00 Intake Total 0 ml Output Total 0 ml Balance 0 ml Anoop Nguyen MD Nov 16, 2018 13:52
[2018-11-16] MEDS: LORazepam 1 MG TAB PO PRN ×2 (13:54→23:34)
[2018-11-17] MEDS: MORPHINE 10MG/0.5ML ORAL CONCENTRATE SOLUTION U/D SL PRN ×5 (05:10→15:45)
[2018-11-17] MEDS: POLYVINYL ALCOHOL OPHTH SOLN 15 ML(LIQUITEARS) OU SCH ×4 (09:00→20:34)
--- NOTE | 2018-11-17 10:01 | IPNPDOC ---
Subjective Date Seen The patient was seen on 11/17/18. Subjective Chief Complaint/HPI Pt's family at bedside. They have no new concerns. General: Reports: ROS Unobtainable Objective Physical Examination General Exam: Positive: No Acute Distress; Negative: Alert ENT Exam: Negative: Mucous membr. moist/pink Neck Exam: Positive: Supple Chest Exam: Positive: Normal air movement, Diminished Heart Exam: Positive: Rate Normal, Normal S1, Normal S2 Extremity Exam: Negative: Edema Neuro Exam: Positive: Other (non-verbal, minimal reposnse to tactile stimulation. no response to verbal stim. ) Psych Exam: Positive: Other; Negative: Mental status NL Assessment /Plan Problems (1) Lewy body dementia Status: Chronic Problem Text: 11/17 maintain FRAME STRAIGHTENER status, family at bedside without questions or concerns. 11/16: unable to take po. FRAME STRAIGHTENER status, looks comfortable. 11/15 Appears comfortable, pt's family without concerns 11/14 seems comfortable at this time. FRAME STRAIGHTENER in place. Discussed Hospice with family and they would like this consult. remains comfortable on FRAME STRAIGHTENER status-has sera 0.5 q4Hprn/halo 0.5 q2Hprn/Roxanol 2 q2H prn/scopo patch 11/11 pt unable to take in oral nutrition, family has declined PEG, pt has had repeat ST eval this morning with recommendations for NPO, family plans to administer ice chips understanding risk for aspiration; therefore, all family agrees c FRAME STRAIGHTENER-MOLST completed cw FRAME STRAIGHTENER 11/10 CT head NAD, increased agitation c hydration/rx of PN, px pulled out peripheral IV this AM-would need sitter, mitts and prn halo to keep peripheral in 11/06 last AP-coty 2.5 10/25 increased to 2.5 at 6, 5 at 16 (given agitation increases ~16) 10/22 changed to olanz 2.5 BID 10/21 risper 0.25 BID not tolerated quet 25 BID held on admission 2 prolonged QTC avoid benzodiazepines in patients with Lewy Body dementia, for it will worsen their hallucinations. (2) Oropharyngeal dysphagia Status: Chronic Response to Treatment: Stable Problem Text: 11/14 product of dementia. FRAME STRAIGHTENER inadequate alertness to reattempt po feeding 11/10/18 long dw family, favor reattempt bedside swallowing eval in AM, if fails, change to FRAME STRAIGHTENER. DNR/DNI agreed upon. MOLST in chart. 11/08/18: bedside ST evaluation recommends NPO-dced meds or changed to IV (3) Hypernatremia Status: Acute Response to Treatment: Uncontrolled Problem Text: 2 dehydration-now FRAME STRAIGHTENER (4) Left lower lobe pneumonia Status: Acute Response to Treatment: Stable Problem Text: FRAME STRAIGHTENER. D3 ceftriaxone poor cough reflex 11/10 5.4, AF, CXR c mild improvement 11/08 8.8, AF 11/07 WBC 10.1 (10/27 5.1) and CXR c slightly increased LLL opacity, but AF, s obvious dyspnea and 99% RA given ho prolonged QTc-FQ not used (5) Physical deconditioning Status: Chronic Problem Text: 11/14 see above, Hospice requested for counseling support of family. 11/10 long dw daughter Lola Garcia at bedside ([phone]) [phone] (6) Severe protein-calorie malnutrition Status: Chronic Response to Treatment: Worse Problem Text: product of dementia related inanition. FRAME STRAIGHTENER status Plan/VTE VTE Prophylaxis Ordered?: No VTE Exclusion Mechanical Proph: Other (FRAME STRAIGHTENER) Plan Anticipated Discharge: Snf Advance Directives: DNR VS, I&O, 24H, Fishbone Vital Signs/I&O Vital Signs Date Time Temp Pulse Resp B/P (MAP) Pulse Ox O2 Delivery O2 Flow Rate FiO2 11/15/18 12:09 98.0 71 20 155/75 97 I&O- Last 24 Hours up to 6 AM 11/17/18 06:00 Intake Total 0 ml Output Total 0 ml Balance 0 ml GRETTA EDMONDSON PA-C Nov 17, 2018 10:01
[2018-11-17] MEDS: LORazepam 1 MG TAB PO PRN ×2 (12:58→18:44)
[2018-11-18] MEDS: POLYVINYL ALCOHOL OPHTH SOLN 15 ML(LIQUITEARS) OU SCH ×4 (09:00→20:25)
--- NOTE | 2018-11-18 10:19 | IPNPDOC ---
Subjective Date Seen The patient was seen on 11/18/18. 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 moist/pink Neck Exam: Positive: Supple Chest Exam: Positive: Normal air movement, Diminished Heart Exam: Positive: Rate Normal, Normal S1, Normal S2 Extremity Exam: Negative: Edema Neuro Exam: Positive: Other (non-verbal, minimal reposnse to tactile stimulation. no response to verbal stim. ) Psych Exam: Positive: Other; Negative: Mental status NL Assessment /Plan Problems (1) Lewy body dementia Status: Chronic Problem Text: 11/18/18: PLATE WORKER HELPER status. Daughter is at bedside. She did not express any concerns 11/17 maintain PLATE WORKER HELPER status, family at bedside without questions or concerns. 11/16: unable to take po. PLATE WORKER HELPER status, looks comfortable. 11/15 Appears comfortable, pt's family without concerns 11/14 seems comfortable at this time. PLATE WORKER HELPER in place. Discussed Hospice with family and they would like this consult. remains comfortable on PLATE WORKER HELPER status-has sera 0.5 q4Hprn/halo 0.5 q2Hprn/Roxanol 2 q2H prn/scopo patch 11/11 pt unable to take in oral nutrition, family has declined PEG, pt has had repeat ST eval this morning with recommendations for NPO, family plans to administer ice chips understanding risk for aspiration; therefore, all family agrees c PLATE WORKER HELPER-MOLST completed cw PLATE WORKER HELPER 11/10 CT head NAD, increased agitation c hydration/rx of PN, px pulled out peripheral IV this AM-would need sitter, mitts and prn halo to keep peripheral in 11/06 last AP-coty 2.5 10/25 increased to 2.5 at 6, 5 at 16 (given agitation increases ~16) 10/22 changed to olanz 2.5 BID 10/21 risper 0.25 BID not tolerated quet 25 BID held on admission 2 prolonged QTC avoid benzodiazepines in patients with Lewy Body dementia, for it will worsen their hallucinations. (2) Oropharyngeal dysphagia Status: Chronic Response to Treatment: Stable Problem Text: 11/14 product of dementia. PLATE WORKER HELPER inadequate alertness to reattempt po feeding 11/10/18 long dw family, favor reattempt bedside swallowing eval in AM, if fails, change to PLATE WORKER HELPER. DNR/DNI agreed upon. MOLST in chart. 11/08/18: bedside ST evaluation recommends NPO-dced meds or changed to IV (3) Hypernatremia Status: Acute Response to Treatment: Uncontrolled Problem Text: 2 dehydration-now PLATE WORKER HELPER (4) Left lower lobe pneumonia Status: Acute Response to Treatment: Stable Problem Text: PLATE WORKER HELPER. D3 ceftriaxone poor cough reflex 11/10 5.4, AF, CXR c mild improvement 11/08 8.8, AF 11/07 WBC 10.1 (10/27 5.1) and CXR c slightly increased LLL opacity, but AF, s obvious dyspnea and 99% RA given ho prolonged QTc-FQ not used (5) Physical deconditioning Status: Chronic Problem Text: 11/14 see above, Hospice requested for counseling support of family. 11/10 long dw daughter Lola Garcia at bedside ([phone]) [phone] (6) Severe protein-calorie malnutrition Status: Chronic Response to Treatment: Worse Problem Text: product of dementia related inanition. PLATE WORKER HELPER status Plan/VTE VTE Prophylaxis Ordered?: No VTE Exclusion Mechanical Proph: Other (PLATE WORKER HELPER) Plan Anticipated Discharge: Halfway Advance Directives: DNR VS, I&O, 24H, Fishbone Vital Signs/I&O Vital Signs Date Time Temp Pulse Resp B/P (MAP) Pulse Ox O2 Delivery O2 Flow Rate FiO2 11/15/18 12:09 98.0 71 20 155/75 97 I&O- Last 24 Hours up to 6 AM 11/18/18 06:00 Intake Total 0 ml Output Total 0 ml Balance 0 ml RENUKA MAXP Nov 18, 2018 10:19
[2018-11-18] MEDS: MORPHINE 10MG/0.5ML ORAL CONCENTRATE SOLUTION U/D SL PRN ×2 (17:34→21:54)
[2018-11-18] MEDS: LORazepam 1 MG TAB PO PRN ×2 (20:24→23:05)
[2018-11-19] MEDS: MORPHINE 10MG/0.5ML ORAL CONCENTRATE SOLUTION U/D SL PRN ×5 (01:12→20:41)
[2018-11-19] MEDS: POLYVINYL ALCOHOL OPHTH SOLN 15 ML(LIQUITEARS) OU SCH ×4 (08:42→19:30)
[2018-11-19] MEDS: LORazepam 1 MG TAB PO PRN ×4 (08:44→19:30)
--- NOTE | 2018-11-19 13:56 | IPN ---
DATE: 11/19/2018 Judah is seen on CMP status. His daughter and son were there, visited for a while. They have no unmet needs and feel his comfort goal is being met.
[2018-11-20] MEDS: SCOPOLAMINE 1MG TRANSDERMAL PATCH TOP PRN (02:32)
[2018-11-20] MEDS: MORPHINE 10MG/0.5ML ORAL CONCENTRATE SOLUTION U/D SL PRN ×6 (02:32→19:01)
[2018-11-20] MEDS: POLYVINYL ALCOHOL OPHTH SOLN 15 ML(LIQUITEARS) OU SCH ×4 (10:21→21:00)
[2018-11-20] MEDS: LORazepam 1 MG TAB PO PRN (21:47)
[2018-11-21] MEDS: MORPHINE 10MG/0.5ML ORAL CONCENTRATE SOLUTION U/D SL PRN ×4 (00:59→10:38)
[2018-11-21] MEDS: LORazepam 1 MG TAB PO PRN ×3 (06:16→10:38)
[2018-11-21] MEDS: POLYVINYL ALCOHOL OPHTH SOLN 15 ML(LIQUITEARS) OU SCH (08:21)
== END 2018-11-21 11:25 | disposition expired | DRG 56 ==
LOC: M ED 18:11 → UNDOADMOB 22:41 → OBSVTOIN 22:41 → INTOOBSV 22:41 → M ED INP 22:41 → M MSPAV 10-20 03:47 → OBSVTOIN 10-23 13:41 → M MSPAV 10-23 13:41
PROVIDERS: ADMIT Internal Medicine; ATTEND Family Medicine
DX: G31.83 Neurocognitive disorder with Lewy bodies (principal); J18.9 Pneumonia, unspecified organism; E43 Unspecified severe protein-calorie malnutrition; F02.81 Dementia in other diseases classified elsewhere, unspecified severity, with behavioral disturbance; E87.0 Hyperosmolality and hypernatremia; G90.3 Multi-system degeneration of the autonomic nervous system; N17.9 Acute kidney failure, unspecified; I45.81 Long QT syndrome; E78.5 Hyperlipidemia, unspecified; Z51.5 Encounter for palliative care; Z66 Do not resuscitate; R44.1 Visual hallucinations; E86.0 Dehydration; R13.12 Dysphagia, oropharyngeal phase; I25.10 Atherosclerotic heart disease of native coronary artery without angina pectoris; M19.90 Unspecified osteoarthritis, unspecified site; H91.93 Unspecified hearing loss, bilateral; I10 Essential (primary) hypertension; Z79.82 Long term (current) use of aspirin; Z79.899 Other long term (current) drug therapy; Z88.0 Allergy status to penicillin; Z95.5 Presence of coronary angioplasty implant and graft; Z86.010 Personal history of colon polyps; Z79.02 Long term (current) use of antithrombotics/antiplatelets; Z90.49 Acquired absence of other specified parts of digestive tract